=== PATIENT | female | born 1930 | race African-American/Black ===

== ENCOUNTER 2019-05-29 06:30 | Inpatient (IN) | payer MEDICARE, OTHER ==
[2019-05-29] MEDS ORDERED: Ondansetron PF 4 MG/2 ML Vial ONE (07:17)
[2019-05-29 07:55] LABS: ALT (SGPT) 10 U/L (8-55); AST (SGOT) 17 U/L (5-34); Albumin 3.4 g/dL (3.4-4.8); Alkaline Phosphatase 143 U/L (40-110); Anion Gap 16 mmol/L (10-20); BUN (Urea Nitrogen) 19 mg/dL (9.8-20.1); Bilirubin, Total 0.7 mg/dL (0.2-1.2); CK (CPK) 42 U/L (29-168); Calc. Creatinine Clearance 0 mL/min (70-130); Calcium 8.7 mg/dL (7.8-10.44); Carbon Dioxide 19 mmol/L (23-31); Chloride 107 mmol/L (98-107); Estimated GFR-MDRD 59; Globulin 3.5 g/dL (2.4-3.5); Glucose 151 mg/dL (83-110); Lipase 6 U/L (8-78); Potassium 4.4 mmol/L (3.5-5.1); Protein, Total 6.9 g/dL (6.0-8.3); Sodium 138 mmol/L (136-145)
--- NOTE | 2019-05-29 07:56 | RAD ---
EXAM: Single view of the chest HISTORY: Fever COMPARISON: 04/06/2019 FINDINGS: Single view of the chest shows a normal sized cardiomediastinal silhouette. Calcified granu cruz projects over the right lung. Increased interstitial markings are present. The bones are unremarkable. IMPRESSION: No evidence of acute cardiopulmonary disease
[2019-05-29 08:08] LABS: Bilirubin Negative (Negative); Blood, Urine Moderate (Negative); Glucose, Urine (Dipstick) Negative (Negative); Leukocyte Large (Negative); Nitrite Positive (Negative); Protein, Urine (Dipstick) 100 mg/dL (Neg-Trace)
[2019-05-29 08:10] LABS: Clarity Turbid (Clear)
[2019-05-29 08:20] LABS: Band 19 % (5-11); Hemoglobin 12.7 g/dL (12.0-16.0); Lymphocytes 2 % (21-51); MDiff Complete? YES; Mean Corpuscular HGB CONC 32.2 g/dL (32.0-36.0); Mean Corpuscular Hemoglobin 27.1 pg (27.0-31.0); Mean Corpuscular Volume 84.1 fL (78.0-98.0); Mean Platelet Volume 11.6 fL (7.4-10.4); Monocytes 2 % (0-10); Neutrophil 77 % (42-75); Platelet Count 172 thou/uL (130-400); RBC Distribution Width 15.6 % (11.5-14.5); Red Blood Cell (RBC) Count 4.69 mill/uL (4.20-5.40); White Blood Cell (WBC) Count 17.9 thou/uL (4.8-10.8)
[2019-05-29 08:21] LABS: Bacteria/HPF 2+ HPF (None Seen); Squamous Epithelial 0-3 HPF (0-3); WBC/HPF Greater Than 50 HPF (0-3)
--- NOTE | 2019-05-29 08:23 | CT ---
CT Abdomen Pelvis W Con: 05/29/2019 7:04 AM CLINICAL INFORMATION: Back and abdominal pain; bloating COMPARISON: None. TECHNIQUE: Multiple contiguous axial images were obtained and a CT of the abdomen and pelvis with IV contrast. C oronal and sagittal reformats were performed. FINDINGS: Lower Chest: within normal limits. Abdomen: Liver: within normal limits. Bile Ducts: Normal caliber. Gallbladder: No calcified gallstones. Normal caliber wall. Pancreas: within normal limits. Spleen: within normal limits. Adrenals: within normal limits. Kidneys: within normal limits. Pelvis: Reproductive Organs: Status post hysterectomy. Ureters: within normal limits. Bladder: within normal limits. Peritoneum: No ascites or free air, no fluid collection. Bowel: Normal caliber. Scattered diverticula in the colon. Mesentery and Retroperitoneum: No enlarged mesenteric or retroperitoneal lymph nodes. Vessels: Atherosclerotic calcifications. Abdominal Wall: within normal limits. Bones: Degenerative changes in the spine. IMPRESSION: 1. No evidence of acute intraabdominal or pelvic abnormality. 2. Diverticulosis
[2019-05-29] MEDS ORDERED: Mag-Al 1200 mg/1200 mg/30 ML UDCUP ONE (08:30)
[2019-05-29] MEDS ORDERED: Lidocaine Viscous Sol 2% 15 ml UD Cup ONE (08:30)
[2019-05-29] MEDS ORDERED: cefTRIAXone\\ROCEPHIN 2 GM VIAL ONE (08:54)
--- NOTE | 2019-05-29 10:13 | HP ---
PRIMARY CARE PHYSICIAN: Dr. Segun Kline. REASON FOR ADMISSION: Sepsis, UTI. HISTORY OF PRESENT ILLNESS: An 89-year-old female with past medical history of hypertension, peripheral vascular disease, and gastroesophageal reflux disease, who was brought to emergency room by family member because the patient was having back pain and lower abdominal pain along with nausea and vomiting. The patient was also having poor appetite for a couple of days and the patient was becoming more and more weak. When the patient was not able to ambulate even with a walker and her leg was giving out, at that point the patient's family member decided to call paramedics and brought her to emergency room. Yesterday, family member insisted on her to go to ER, but the patient refusing. The patient also had episode of vomiting yesterday, which was containing food particle without any blood. The patient does not have any diarrhea or constipation, but the patient was going for urination frequently. The patient was also warm at home, but family member did not measure temperature. When she was brought to ER, the patient was found with temperature 102.3. The patient was also disoriented at home. The patient did not have any fall or loss of consciousness. The patient did not have any focal motor deficit. Routine blood test showed bandemia and her urinalysis were consistent with UTI. The patient was meeting sepsis criteria. The patient received IV fluid appropriately and received broad-spectrum antibiotic therapy and we decided to keep this patient in the hospital for further evaluation. PAST MEDICAL HISTORY: Hypertension, gastroesophageal reflux disease, and peripheral vascular disease. PAST SURGICAL HISTORY: Hysterectomy, surgery for ectopic , and stent placement in the lower extremity. PAST PSYCHIATRIC HISTORY: Reviewed and negative. ALLERGIES: NO KNOWN DRUG ALLERGIES. CURRENT HOME MEDICATIONS: 1. Aspirin 81 mg daily. 2. Verapamil extended release 180 mg. 3. Diflucan 100 mg daily. FAMILY HISTORY: No strong family history of premature coronary artery disease, stroke, or cancer. SOCIAL HISTORY: The patient has history of smoking about half pack per day. No history of alcohol abuse. No history of illicit drug abuse. Currently lives with her daughter. REVIEW OF SYSTEMS: CONSTITUTIONAL: Negative for weight loss or gain, ability to conduct usual activities. SKIN: Negative for rash, itching. EYES: Negative for double vision, pain. ENT/MOUTH: Negative for nose bleeding, neck stiffness, pain, tenderness. CARDIOVASCULAR: Negative for palpitations, dyspnea on exertion, orthopnea. RESPIRATORY: Negative for shortness of breath, wheezing, cough, hemoptysis, fever or night sweats. GASTROINTESTINAL: Negative for poor appetite, abdominal pain, heartburn, nausea, vomiting, constipation, or diarrhea. GENITOURINARY: Negative for urgency, frequency, dysuria, nocturia. MUSCULOSKELETAL: Negative for pain, swelling. NEUROLOGIC/PSYCHIATRIC: Negative for anxiety, depression. ALLERGY/IMMUNOLOGIC: Negative for skin rash, bleeding tendency. Please see my HPI for pertinent positives and negatives. All other review of systems reviewed and negative except as mentioned in the HPI. EMERGENCY ROOM COURSE: The patient has received Rocephin, Levaquin, IV fluid, GI cocktail, and Zofran. PHYSICAL EXAMINATION: VITAL SIGNS: On arrival, blood pressure 148/61, pulse 90, respiratory rate 18, temperature 102.3, and saturation 97% on room air. Weight 79 kg. GENERAL: The patient is currently alert, awake, appears generalized weak. HEENT: Head; normocephalic, atraumatic. Eyes; pupils are round and reactive to light. Extraocular muscle intact. ENT; oropharynx within normal limits. Dry mucous membranes. No oral lesion. No pharyngeal erythema. No exudate. NECK: Supple. No JVD. No meningeal signs of irritation. LUNGS: Clear to auscultation without any rhonchi or rales. CARDIAC: S1 and S2 regular. No murmur elicited. No gallop. No rub. ABDOMEN: Soft. Bowel sounds present. Lower abdominal discomfort noted. No peritoneal sign. No guarding. No rigidity. No rebound. BACK: Unremarkable. EXTREMITIES: Upper extremities; passive movement of all joints are normal. Lower extremities; no edema. Good distal pulsation. SKIN: No skin rash. HEMATOLOGICAL SYSTEM: No lymphadenopathy. NEUROLOGIC: Nonfocal examination. SIGNIFICANT LABORATORY DATA: EKG based on my review, normal sinus rhythm, within normal limits. Chest x-ray based on my review, no acute cardiopulmonary process. CT abdomen and pelvis showed no acute abdominal process, diverticulosis. CBC; WBC 17.9, hemoglobin 12.7, and platelet 172 with bandemia. BMP; sodium 138, potassium 4.4, chloride 107, carbon dioxide 19, BUN 19, creatinine 1.06, glucose 151, and calcium 8.7. Lactic acid 1.8. LFT; AST 17, ALT 10, alkaline phosphatase 143, albumin 3.4, lipase 66. Troponin 0.024. BNP 80.9. Urinalysis; nitrite positive, blood moderate, and leukocyte esterase large. ASSESSMENT AND PLAN: 1. Sepsis due to urinary tract infection. The patient has leukocytosis with bandemia, high-grade fever. Source of infection is urinary tract. At this point, chest x-ray and CT abdomen and pelvis unremarkable. The patient already received Rocephin and Levaquin in the emergency room, which we will continue while in hospital. We will continue the IV fluid. Follow up on culture result. 2. Urinary tract infection, as mentioned in problem #1. Continue Rocephin, Levaquin, and IV fluid and follow up on culture result and change antibiotic accordingly. 3. Hypertension. We will continue the patient's home medication, verapamil ER after confirmation of dose and the blood pressure permits. 4. Gastroesophageal reflux disease. We will continue Pepcid 20 mg p.o. b.i.d. 5. Deep venous thrombosis prophylaxis, Lovenox 40 mg subcu daily. Gastrointestinal prophylaxis, Pepcid 20 mg p.o. b.i.d. 6. Code status: The patient is full code. The patient's daughter is surrogate decision maker. 7. Disposition plan: Based on clinical course, the patient will need PT and OT evaluation while in hospital and we are expecting her stay in hospital more than 2 midnights. Plan of care extensively discussed with the family member at bedside in the emergency room. Job ID: [id number]
[2019-05-29] MEDS ORDERED: Iopamidol-370 76% 500 ML 1 ML ONE (12:16)
[2019-05-29] MEDS ORDERED: hydrALAZINE 20 MG/ML VIAL SLOW IVP PRN (12:54)
[2019-05-29] MEDS ORDERED: Loratadine 10 MG TAB PO PRN (12:54)
[2019-05-29] MEDS ORDERED: Ondansetron ODT 4 MG TAB PO PRN (12:54)
[2019-05-29] MEDS ORDERED: Bisacodyl 10 MG SUPP PR PRN (12:54)
[2019-05-29] MEDS ORDERED: Loperamide HCl 2 MG CAP PO PRN (12:54)
[2019-05-29] MEDS ORDERED: Diabetic Tussin 200 MG/10 ML UDCUP PO PRN (12:54)
[2019-05-29] MEDS ORDERED: Zolpidem Tartrate 5 MG TAB PO PRN (12:54)
[2019-05-29] MEDS ORDERED: Senokot S 8.6-50 MG TAB PO PRN (12:54)
[2019-05-29] MEDS ORDERED: Calcium Carbonate 500 MG ChewTAB PO PRN (12:54)
[2019-05-29] MEDS ORDERED: Cepastat Lozenges 1 LOZ PO PRN (12:54)
[2019-05-29] MEDS ORDERED: Ondansetron PF 4 MG/2 ML Vial IVP PRN (12:54)
[2019-05-29] MEDS ORDERED: Artificial Tears 18 DROP/0.9 ML EA EYE PRN (12:54)
[2019-05-29] MEDS ORDERED: Sodium Chloride 0.65% Nasal 44 ML BOT EA NARE PRN (12:54)
[2019-05-29] MEDS: Sodium Chloride 0.9% 1,000 ML IV SCH (13:22)
[2019-05-29 16:58] VITALS: BMI 30.2
[2019-05-29] MEDS: Famotidine 20 MG TAB PO SCH (20:54)
[2019-05-29] MEDS ORDERED: FLU VACC TS2019-20(65YR UP)/PF 180 MCG/0.5 ML SYRINGE IM ONE (21:00)
[2019-05-30] MEDS: Acetaminophen 325 MG TAB PO PRN ×4 (00:09→23:58)
[2019-05-30] MEDS: Sodium Chloride 0.9% 1,000 ML IV SCH ×2 (00:11→08:44)
[2019-05-30 05:34] LABS: #Lymphocytes 2.1 thou/uL (1.20-3.40); #Monocytes 1.9 thou/uL (0.11-0.59); #Neutrophils 15.6 thou/uL (1.40-6.50); %Basophils 0.1 % (0.0-1.0); %Eosinophils 0.2 % (0.0-10.0); %Lymphocytes 10.8 % (21.0-51.0); %Monocytes 9.6 % (0.0-10.0); %Neutrophils 79.3 % (42.0-75.0); Hemoglobin 10.8 g/dL (12.0-16.0); Mean Corpuscular HGB CONC 31.3 g/dL (32.0-36.0); Mean Corpuscular Hemoglobin 27.1 pg (27.0-31.0); Mean Corpuscular Volume 86.6 fL (78.0-98.0); Mean Platelet Volume 11.1 fL (7.4-10.4); Platelet Count 143 thou/uL (130-400); RBC Distribution Width 15.4 % (11.5-14.5); Red Blood Cell (RBC) Count 3.96 mill/uL (4.20-5.40); White Blood Cell (WBC) Count 19.6 thou/uL (4.8-10.8)
[2019-05-30 05:45] LABS: Anion Gap 10 mmol/L (10-20); BUN (Urea Nitrogen) 15 mg/dL (9.8-20.1); Calc. Creatinine Clearance 53 mL/min (70-130); Calcium 7.7 mg/dL (7.8-10.44); Carbon Dioxide 21 mmol/L (23-31); Chloride 110 mmol/L (98-107); Estimated GFR-MDRD 74; Glucose 101 mg/dL (83-110); Potassium 4.3 mmol/L (3.5-5.1); Sodium 137 mmol/L (136-145)
[2019-05-30] MEDS: Saccharomyces boulardii 250 MG CAP PO SCH (08:42)
[2019-05-30] MEDS: Enoxaparin Sodium 40 MG/0.4 ML SYRINGE SC SCH (08:42)
[2019-05-30] MEDS: Famotidine 20 MG TAB PO SCH (08:42)
[2019-05-30] MEDS: Aspirin Chewable 81 MG TAB PO SCH (08:42)
[2019-05-30] MEDS ORDERED: cefTRIAXone\\ROCEPHIN 1 GM in Sodium Chloride 0.9% 100 ML IVPB SCH (09:00)
--- NOTE | 2019-05-30 10:37 | PDOC.HOSPP ---
- Subjective Encounter Date: 05/30/19 Encounter Time: 09:10 Subjective: Patient seen and examined. No new complaints. No overnight events - Objective Vital Signs & Weight: Vital Signs (12 hours) Temp Pulse Resp BP Pulse Ox 05/30/19 04:18 98.4 F 97 16 135/73 97 05/30/19 02:57 97 05/29/19 23:54 101.3 F H 82 16 143/76 H 97 Weight Weight 165 lb 5.547 oz I&O: 05/29/19 05/30/19 05/31/19 06:59 06:59 06:59 Intake Total 2880 Output Total 200 Balance 2680 Result Diagrams: 05/30/19 04:54 05/30/19 04:54 Hospitalist ROS - Review of Systems Constitutional: reports: weakness, malaise. denies: fever, chills, sweats, other ENT: denies: ear pain, ear discharge, nose pain, nose discharge, nose congestion , mouth pain, mouth swelling, throat pain, throat swelling, other Respiratory: denies: cough, dry, shortness of breath, hemoptysis, SOB with excertion, pleuritic pain, sputum, wheezing, other Cardiovascular: denies: chest pain, palpitations, orthopnea, paroxysmal noc. dyspnea, edema, light headedness, other Gastrointestinal: denies: nausea, vomiting, abdominal pain, diarrhea, constipation, melena, hematochezia, other Genitourinary: denies: dysuria, frequency, incontinence, hematuria, retention, other Musculoskeletal: denies: neck pain, shoulder pain, arm pain, back pain, hand pain, leg pain, foot pain, other - Medication Medications: Active Medications Generic Name Dose Route Start Last Admin Trade Name Freq PRN Reason Stop Dose Admin Acetaminophen 650 mg 05/29/19 12:54 05/30/19 08:50 Tylenol PO 650 mg Q4H PRN Administration Headache/Fever/Mild Pain (1-3) Aspirin 81 mg 05/30/19 09:00 05/30/19 08:42 Aspirin Chewable PO 81 mg DAILY TIANA Administration Enoxaparin Sodium 40 mg 05/30/19 09:00 05/30/19 08:42 Lovenox SC 40 mg 0900 TIANA Administration Ceftriaxone Sodium 1 gm/ 100 mls @ 200 mls/hr 05/30/19 09:00 05/30/19 08:43 Sodium Chloride IVPB 100 mls Q24HR TIANA Administration Levofloxacin 750 mg/ Device 150 mls @ 100 mls/hr 05/30/19 10:00 05/30/19 09: 43 IVPB 150 mls Q24HR TIANA Administration Sodium Chloride 1,000 mls @ 100 mls/hr 05/29/19 12:54 05/30/19 08:44 Normal Saline 0.9% IV Not Given .Q10H TIANA Saccharomyces Boulardii 250 mg 05/30/19 09:00 05/30/19 08:42 Florastor PO 250 mg DAILY TIANA Administration Sodium Chloride 10 ml 05/30/19 09:00 05/30/19 08:43 Flush - Normal Saline IVF Not Given Q12HR TIANA Verapamil HCl 180 mg 05/30/19 09:00 05/30/19 09:43 Calan Er PO 180 mg DAILY TIANA Administration - Exam General Appearance: NAD, awake alert Eye: PERRL, anicteric sclera ENT: normocephalic atraumatic, no oropharyngeal lesions Neck: supple, symmetric, no JVD, no thyromegaly Heart: RRR, no murmur, no gallops, no rubs Respiratory: CTAB, no wheezes, no rales, no ronchi Gastrointestinal: soft, non-tender, non-distended, normal bowel sounds Extremities: no cyanosis, no clubbing Skin: normal turgor, no lesions Neurological: no focal deficits Musculoskeletal: normal tone, normal strength Psychiatric: normal affect, normal behavior Hosp A/P (1) Sepsis Code(s): A41.9 - SEPSIS, UNSPECIFIED ORGANISM Status: Acute Qualifiers: Sepsis type: Escherichia coli Sepsis acute organ dysfunction status: with acute organ dysfunction Severe sepsis acute organ dysfunction type: encephalopathy Severe sepsis shock status: without septic shock Qualified Code(s): A41.51 - Sepsis due to Escherichia coli [E. coli]; R65.20 - Severe sepsis without septic shock; G93.41 - Metabolic encephalopathy (2) Acute encephalopathy Code(s): G93.40 - ENCEPHALOPATHY, UNSPECIFIED Status: Acute (3) Bacteremia due to Escherichia coli Code(s): R78.81 - BACTEREMIA Status: Acute (4) Obesity (BMI 30.0-34.9) Code(s): E66.9 - OBESITY, UNSPECIFIED Status: Chronic (5) GERD (gastroesophageal reflux disease) Code(s): K21.9 - GASTRO-ESOPHAGEAL REFLUX DISEASE WITHOUT ESOPHAGITIS Status: Chronic Qualifiers: Esophagitis presence: without esophagitis Qualified Code(s): K21.9 - Gastro -esophageal reflux disease without esophagitis (6) Hypertension Code(s): I10 - ESSENTIAL (PRIMARY) HYPERTENSION Status: Chronic Qualifiers: Hypertension type: essential hypertension Qualified Code(s): I10 - Essential (primary) hypertension - Plan old records reviewed/req, continue antibiotics, PT/OT, social sciences professor, DVT proph w/lovenox 05/30/19 continue IVF for 1 liter continue antibiotics follow on culture result medication reviewed as above and continue to provide supportive care
[2019-05-31 05:53] LABS: Anion Gap 10 mmol/L (10-20); BUN (Urea Nitrogen) 14 mg/dL (9.8-20.1); Calc. Creatinine Clearance 55 mL/min (70-130); Carbon Dioxide 20 mmol/L (23-31); Chloride 110 mmol/L (98-107); Estimated GFR-MDRD 76; Glucose 84 mg/dL (83-110); Potassium 4.2 mmol/L (3.5-5.1); Sodium 136 mmol/L (136-145)
[2019-05-31 07:01] LABS: Band 16 % (5-11); Hemoglobin 10.5 g/dL (12.0-16.0); Lymphocytes 16 % (21-51); MDiff Complete? YES; Mean Corpuscular HGB CONC 31.2 g/dL (32.0-36.0); Mean Corpuscular Hemoglobin 26.6 pg (27.0-31.0); Mean Corpuscular Volume 85.4 fL (78.0-98.0); Mean Platelet Volume 11.2 fL (7.4-10.4); Monocytes 1 % (0-10); Neutrophil 67 % (42-75); Platelet Count 150 thou/uL (130-400); RBC Distribution Width 15.4 % (11.5-14.5); Red Blood Cell (RBC) Count 3.94 mill/uL (4.20-5.40); White Blood Cell (WBC) Count 13.5 thou/uL (4.8-10.8)
[2019-05-31] MEDS: Aspirin Chewable 81 MG TAB PO SCH (09:37)
[2019-05-31] MEDS: Saccharomyces boulardii 250 MG CAP PO SCH (09:37)
[2019-05-31] MEDS: Enoxaparin Sodium 40 MG/0.4 ML SYRINGE SC SCH (09:37)
[2019-05-31] MEDS: Famotidine 20 MG TAB PO SCH (09:38)
--- NOTE | 2019-05-31 10:45 | PDOC.HOSPP ---
- Subjective Encounter Date: 05/31/19 Encounter Time: 09:15 Subjective: Patient seen and examined. No new complaints. No overnight events - Objective Vital Signs & Weight: Vital Signs (12 hours) Temp Pulse Resp BP Pulse Ox 05/31/19 08:00 100.1 F H 76 24 H 171/81 H 95 05/31/19 03:37 99.6 F 72 16 176/77 H 97 05/31/19 00:40 99 F 05/31/19 00:00 172/71 H 05/30/19 23:33 100.8 F H 77 16 180/71 H 92 L Weight Weight 165 lb 5.547 oz I&O: 05/30/19 05/31/19 06/01/19 06:59 06:59 06:59 Intake Total 2880 1400 Output Total 200 200 Balance 2680 1200 Result Diagrams: 05/31/19 05:10 05/31/19 05:10 Hospitalist ROS - Review of Systems ENT: denies: ear pain, ear discharge, nose pain, nose discharge, nose congestion , mouth pain, mouth swelling, throat pain, throat swelling, other Respiratory: denies: cough, dry, shortness of breath, hemoptysis, SOB with excertion, pleuritic pain, sputum, wheezing, other Cardiovascular: denies: chest pain, palpitations, orthopnea, paroxysmal noc. dyspnea, edema, light headedness, other Gastrointestinal: denies: nausea, vomiting, abdominal pain, diarrhea, constipation, melena, hematochezia, other Genitourinary: denies: dysuria, frequency, incontinence, hematuria, retention, other Musculoskeletal: denies: neck pain, shoulder pain, arm pain, back pain, hand pain, leg pain, foot pain, other - Medication Medications: Active Medications Generic Name Dose Route Start Last Admin Trade Name Freq PRN Reason Stop Dose Admin Acetaminophen 650 mg 05/29/19 12:54 05/30/19 23:58 Tylenol PO 650 mg Q4H PRN Administration Headache/Fever/Mild Pain (1-3) Aspirin 81 mg 05/30/19 09:00 05/31/19 09:37 Aspirin Chewable PO 81 mg DAILY TIANA Administration Enoxaparin Sodium 40 mg 05/30/19 09:00 05/31/19 09:37 Lovenox SC 40 mg 09 TIANA Administration Famotidine 20 mg 05/31/19 09:00 05/31/19 09:38 Pepcid PO 20 mg DAILY TIANA Administration Ciprofloxacin/Dextrose 400 mg/ 200 mls @ 200 mls/hr 05/31/19 09:00 05/31/19 09:35 Device IVPB 200 mls Q12HR TIANA Administration Saccharomyces Boulardii 250 mg 05/30/19 09:00 05/31/19 09:37 Florastor PO 250 mg DAILY TIANA Administration Sodium Chloride 10 ml 05/30/19 09:00 05/31/19 05:27 Flush - Normal Saline IVF Not Given Q12HR TIANA Verapamil HCl 180 mg 05/30/19 09:00 05/31/19 09:42 Calan Er PO 180 mg DAILY TIANA Administration - Exam General Appearance: NAD, awake alert Eye: PERRL, anicteric sclera ENT: normocephalic atraumatic, no oropharyngeal lesions Neck: supple, symmetric, no JVD Heart: RRR, no murmur, no gallops, no rubs Respiratory: CTAB, no wheezes, no rales, no ronchi Gastrointestinal: soft, non-tender, non-distended, normal bowel sounds Extremities: no cyanosis, no clubbing, no edema Skin: normal turgor, no lesions Neurological: no focal deficits Musculoskeletal: normal tone, normal strength Psychiatric: normal affect, normal behavior Hosp A/P (1) Sepsis Code(s): A41.9 - SEPSIS, UNSPECIFIED ORGANISM Status: Acute Qualifiers: Sepsis type: Escherichia coli Sepsis acute organ dysfunction status: with acute organ dysfunction Severe sepsis acute organ dysfunction type: encephalopathy Severe sepsis shock status: without septic shock Qualified Code(s): A41.51 - Sepsis due to Escherichia coli [E. coli]; R65.20 - Severe sepsis without septic shock; G93.41 - Metabolic encephalopathy (2) Acute encephalopathy Code(s): G93.40 - ENCEPHALOPATHY, UNSPECIFIED Status: Acute (3) Bacteremia due to Escherichia coli Code(s): R78.81 - BACTEREMIA Status: Acute (4) Obesity (BMI 30.0-34.9) Code(s): E66.9 - OBESITY, UNSPECIFIED Status: Chronic (5) GERD (gastroesophageal reflux disease) Code(s): K21.9 - GASTRO-ESOPHAGEAL REFLUX DISEASE WITHOUT ESOPHAGITIS Status: Chronic Qualifiers: Esophagitis presence: without esophagitis Qualified Code(s): K21.9 - Gastro -esophageal reflux disease without esophagitis (6) Hypertension Code(s): I10 - ESSENTIAL (PRIMARY) HYPERTENSION Status: Chronic Qualifiers: Hypertension type: essential hypertension Qualified Code(s): I10 - Essential (primary) hypertension - Plan old records reviewed/req, continue antibiotics, PT/OT, medical social worker 05/30/19 continue IVF for 1 liter continue antibiotics follow on culture result medication reviewed as above and continue to provide supportive care 05/31/19 change antibiotic to cipro IV today based on culture result medication reviewed as above and symptomatic treatment discharge planning, expecting discharge 24-48 hours
[2019-05-31] MEDS ORDERED: Losartan 25 MG TAB PO SCH (11:45)
[2019-06-01] MEDS: Acetaminophen 325 MG TAB PO PRN (00:03)
[2019-06-01 06:24] LABS: Band 4 % (5-11); Hemoglobin 10.9 g/dL (12.0-16.0); Lymphocytes 33 % (21-51); MDiff Complete? YES; Mean Corpuscular HGB CONC 31.6 g/dL (32.0-36.0); Mean Corpuscular Hemoglobin 26.4 pg (27.0-31.0); Mean Corpuscular Volume 83.5 fL (78.0-98.0); Mean Platelet Volume 11.1 fL (7.4-10.4); Monocytes 7 % (0-10); Neutrophil 56 % (42-75); Platelet Count 166 thou/uL (130-400); RBC Distribution Width 15.3 % (11.5-14.5); Red Blood Cell (RBC) Count 4.12 mill/uL (4.20-5.40); White Blood Cell (WBC) Count 9.8 thou/uL (4.8-10.8)
[2019-06-01] MEDS ORDERED: Carvedilol 6.25 MG TAB PO SCH (08:00)
[2019-06-01] MEDS: Aspirin Chewable 81 MG TAB PO SCH (08:56)
[2019-06-01] MEDS: Saccharomyces boulardii 250 MG CAP PO SCH (08:56)
[2019-06-01] MEDS: Enoxaparin Sodium 40 MG/0.4 ML SYRINGE SC SCH (08:56)
[2019-06-01] MEDS: Famotidine 20 MG TAB PO SCH (08:56)
[2019-06-01] MEDS ORDERED: Losartan 25 MG TAB PO SCH ×2 (09:00)
[2019-06-01] MEDS ORDERED: Amlodipine 5 MG TAB PO SCH (09:00)
[2019-06-01] MEDS ORDERED: hydrALAZINE 25 MG TAB PO SCH ×2 (10:30→15:00)
--- NOTE | 2019-06-01 10:33 | PDOC.HOSPP ---
- Subjective Encounter Date: 06/01/19 Encounter Time: 08:40 Subjective: Patient seen and examined. No new complaints. No overnight events - Objective Vital Signs & Weight: Vital Signs (12 hours) Temp Pulse Resp BP BP Pulse Ox 06/01/19 08:55 195/71 H 06/01/19 07:40 99.5 F 68 18 195/71 H 94 L 06/01/19 03:52 98.8 F 68 16 168/81 H 93 L 06/01/19 00:21 77 184/77 H 06/01/19 00:00 100.1 F H 77 18 184/77 H 95 Weight Weight 165 lb 5.547 oz I&O: 05/31/19 06/01/19 06/02/19 06:59 06:59 06:59 Intake Total 1400 240 Output Total 200 Balance 1200 240 Result Diagrams: 06/01/19 05:34 05/31/19 05:10 Hospitalist ROS - Review of Systems Respiratory: denies: cough, dry, shortness of breath, hemoptysis, SOB with excertion, pleuritic pain, sputum, wheezing, other Cardiovascular: denies: chest pain, palpitations, orthopnea, paroxysmal noc. dyspnea, edema, light headedness, other Gastrointestinal: denies: nausea, vomiting, abdominal pain, diarrhea, constipation, melena, hematochezia, other Genitourinary: denies: dysuria, frequency, incontinence, hematuria, retention, other Musculoskeletal: denies: neck pain, shoulder pain, arm pain, back pain, hand pain, leg pain, foot pain, other - Medication Medications: Active Medications Generic Name Dose Route Start Last Admin Trade Name Luisq PRN Reason Stop Dose Admin Acetaminophen 650 mg 05/29/19 12:54 06/01/19 00:03 Tylenol PO 650 mg Q4H PRN Administration Headache/Fever/Mild Pain (1-3) Aspirin 81 mg 05/30/19 09:00 06/01/19 08:56 Aspirin Chewable PO 81 mg DAILY TIANA Administration Carvedilol 6.25 mg 06/01/19 08:00 06/01/19 08:55 Coreg PO 6.25 mg BID-WM TIANA Administration Enoxaparin Sodium 40 mg 05/30/19 09:00 06/01/19 08:56 Lovenox SC 40 mg 0900 TIANA Administration Famotidine 20 mg 05/31/19 09:00 06/01/19 08:56 Pepcid PO 20 mg DAILY TIANA Administration Hydralazine HCl 10 mg 05/29/19 12:54 06/01/19 00:21 Apresoline SLOW IVP 10 mg Q4H PRN Administration SBP > 180 and HR < 70 Ciprofloxacin/Dextrose 400 mg/ 200 mls @ 200 mls/hr 05/31/19 09:00 06/01/19 08:56 Device IVPB 200 mls Q12HR TIANA Administration Losartan Potassium 100 mg 06/01/19 09:00 06/01/19 08:55 Cozaar PO 100 mg DAILY TIANA Administration Saccharomyces Boulardii 250 mg 05/30/19 09:00 06/01/19 08:56 Florastor PO 250 mg DAILY TIANA Administration Sodium Chloride 10 ml 05/30/19 09:00 06/01/19 08:57 Flush - Normal Saline IVF 10 ml Q12HR TIANA Administration Verapamil HCl 180 mg 05/30/19 09:00 06/01/19 08:56 Calan Er PO 180 mg DAILY TIANA Administration - Exam General Appearance: NAD, awake alert Eye: PERRL, anicteric sclera ENT: normocephalic atraumatic, no oropharyngeal lesions Neck: supple, symmetric, no JVD Heart: RRR, no murmur, no gallops, no rubs Respiratory: CTAB, no wheezes, no rales, no ronchi Gastrointestinal: soft, non-tender, non-distended, normal bowel sounds Extremities: no clubbing, no edema Skin: normal turgor, no lesions Neurological: no focal deficits Musculoskeletal: normal tone, normal strength Psychiatric: normal affect, normal behavior Hosp A/P (1) Sepsis Code(s): A41.9 - SEPSIS, UNSPECIFIED ORGANISM Status: Acute Qualifiers: Sepsis type: Escherichia coli Sepsis acute organ dysfunction status: with acute organ dysfunction Severe sepsis acute organ dysfunction type: encephalopathy Severe sepsis shock status: without septic shock Qualified Code(s): A41.51 - Sepsis due to Escherichia coli [E. coli]; R65.20 - Severe sepsis without septic shock; G93.41 - Metabolic encephalopathy (2) Acute encephalopathy Code(s): G93.40 - ENCEPHALOPATHY, UNSPECIFIED Status: Acute (3) Bacteremia due to Escherichia coli Code(s): R78.81 - BACTEREMIA Status: Acute (4) Obesity (BMI 30.0-34.9) Code(s): E66.9 - OBESITY, UNSPECIFIED Status: Chronic (5) GERD (gastroesophageal reflux disease) Code(s): K21.9 - GASTRO-ESOPHAGEAL REFLUX DISEASE WITHOUT ESOPHAGITIS Status: Chronic Qualifiers: Esophagitis presence: without esophagitis Qualified Code(s): K21.9 - Gastro -esophageal reflux disease without esophagitis (6) Hypertension Code(s): I10 - ESSENTIAL (PRIMARY) HYPERTENSION Status: Chronic Qualifiers: Hypertension type: essential hypertension Qualified Code(s): I10 - Essential (primary) hypertension - Plan old records reviewed/req, continue antibiotics 05/30/19 continue IVF for 1 liter continue antibiotics follow on culture result medication reviewed as above and continue to provide supportive care 05/31/19 change antibiotic to cipro IV today based on culture result medication reviewed as above and symptomatic treatment discharge planning, expecting discharge 24-48 hours 06/01/19 change losartan 100 mg po daily add coreg 6.25 mg po bid add hydralazine 25 mg po tid possible discharge today if no further discharge needs like snu medication reviewed as above and continue to provide supportive care
--- NOTE | 2019-06-01 12:22 | DIS ---
DATE OF ADMISSION: 05/29/2019 DATE OF DISCHARGE: 06/01/2019 PRIMARY CARE PHYSICIAN: Dr. Ellie Winn. DISCHARGE DISPOSITION: Home with home health. PRIMARY DISCHARGE DIAGNOSES: Sepsis with acute organ dysfunction; acute encephalopathy, resolved; bacteremia due to Escherichia coli; and urinary tract infection. SECONDARY DISCHARGE DIAGNOSES: Obesity with BMI 30, hypertension, and gastroesophageal reflux disease. PRIMARY PROCEDURE/OPERATION: None. RADIOLOGICAL INVESTIGATION: Chest x-ray was normal. CT abdomen and pelvis was unremarkable other than diverticulosis. SIGNIFICANT LABORATORY DATA: WBC 9.8, hemoglobin 10.9, and platelets 166. Sodium 136, potassium 4.2, BUN 14, creatinine 0.86, and calcium 8.0. AST 17, ALT 10, alkaline phosphatase 143, and albumin 3.4. Troponin 0.024. BNP 80.9. Urinalysis suggestive of UTI. Blood culture positive for E coli. Influenza negative. DISCHARGE MEDICATIONS: 1. Aspirin 81 mg p.o. daily. 2. Omeprazole 40 mg p.o. daily. 3. Verapamil ER 180 mg p.o. daily. 4. Cipro 500 mg p.o. twice daily for 15 days. 5. Coreg 6.25 mg p.o. b.i.d. 6. Hydralazine 25 mg p.o. t.i.d. 7. Losartan 100 mg p.o. daily. CONTRAINDICATION: None. CODE STATUS: Full code. INPATIENT FAGOTING MACHINE OPERATOR: None. ALLERGIES: NO KNOWN DRUG ALLERGIES. DISCHARGE PLAN: Posthospital, the patient will follow up with primary care physician in 1 week. HOSPITAL COURSE: An 89-year-old female, who was brought to ER by family member for generalized weakness and lower abdominal pain and nausea and vomiting. The patient was found with urinary tract infection. Please see my HPI for more details. The patient subsequently had positive blood culture as well. While in the hospital, she was treated with Rocephin and Levaquin, and subsequently, based on culture result, we changed to ciprofloxacin only. The patient was having intermittent fever while in the hospital and she clinically improved significantly. The patient's blood pressure was not well controlled and that is why we increased the dose of losartan to 100 mg daily as well as we also added hydralazine and Coreg on her regimen. This patient is doing very well with physical therapy. At this point, we are considering discharge with home health. Plan of care discussed with the family member. The patient is seen and examined at bedside today. Please see my progress note from today for further detail. All new medication prescription sent to her pharmacy. Job ID: [id number]
[2019-06-01 15:50] VITALS: BP 134/76; TEMP 98.9
== END 2019-06-01 16:40 | disposition home health service (06) | DRG 871 ==
LOC: ERS 06:30 → SURG A 11:55
PROVIDERS: ADMIT Internal Medicine; ATTEND Internal Medicine
DX: A41.51 Sepsis due to Escherichia coli [E. coli] (principal); G93.41 Metabolic encephalopathy; N39.0 Urinary tract infection, site not specified; R65.20 Severe sepsis without septic shock; E66.9 Obesity, unspecified; K21.9 Gastro-esophageal reflux disease without esophagitis; I10 Essential (primary) hypertension; F17.210 Nicotine dependence, cigarettes, uncomplicated; I73.9 Peripheral vascular disease, unspecified; Z68.30 Body mass index [BMI] 30.0-30.9, adult
CPT/HCPCS: 36415; 36416; 71045; 74177; 80048; 80053; 81003; 81015; 82550; 83605; 83690; 83880; 84484; 85025; 87040; 87077; 87149; 87186; 87804; 93005; A4353; J0360; J0696; J0744; J1650; J1956; J2405; J3490; Q9967

== ENCOUNTER 2019-07-29 23:22 | Inpatient (IN) | payer MEDICARE, OTHER ==
--- NOTE | 2019-07-29 23:57 | RAD ---
XR Chest 1 View Portable History: Dyspnea Comparison: Radiograph May 29, 2019 Findings: Small effusions. Consolidation right lung base. Heart size is enlarged. Mild background pulmonary edema. Right upper lobe calcified granuloma. Impression: 1. Cardiomegaly and mild pulmonary edema. 2. Dense consolidation right lung base reflect layering effusion, alveolar edema, or pneumonia. Follo w-up recommended.
[2019-07-30 00:02] LABS: Hemoglobin 9.3 g/dL (12.0-16.0); Lymphocytes 45 % (21-51); MDiff Complete? YES; Mean Corpuscular HGB CONC 30.4 g/dL (32.0-36.0); Mean Corpuscular Hemoglobin 25.1 pg (27.0-31.0); Mean Corpuscular Volume 82.7 fL (78.0-98.0); Mean Platelet Volume 10.1 fL (7.4-10.4); Monocytes 13 % (0-10); Neutrophil 42 % (42-75); Platelet Count 277 thou/uL (130-400); Platelet Morphology Comment Appears Adequate; RBC Distribution Width 18.3 % (11.5-14.5); Red Blood Cell (RBC) Count 3.69 mill/uL (4.20-5.40); White Blood Cell (WBC) Count 8.8 thou/uL (4.8-10.8)
[2019-07-30 00:20] LABS: ALT (SGPT) 23 U/L (8-55); AST (SGOT) 28 U/L (5-34); Albumin 3.1 g/dL (3.4-4.8); Alkaline Phosphatase 106 U/L (40-110); Anion Gap 17 mmol/L (10-20); BUN (Urea Nitrogen) 16 mg/dL (9.8-20.1); Bilirubin, Total 0.4 mg/dL (0.2-1.2); Calc. Creatinine Clearance 0 mL/min (70-130); Calcium 7.9 mg/dL (7.8-10.44); Carbon Dioxide 21 mmol/L (23-31); Chloride 110 mmol/L (98-107); Estimated GFR-MDRD 59; Globulin 2.9 g/dL (2.4-3.5); Glucose 119 mg/dL (83-110); Potassium 4.8 mmol/L (3.5-5.1); Sodium 143 mmol/L (136-145)
[2019-07-30] MEDS ORDERED: Acetaminophen 500 MG TAB ONE (00:56)
[2019-07-30] MEDS ORDERED: Cefepime 2 GM VIAL ONE (00:57)
[2019-07-30 01:45] LABS: Bilirubin Negative (Negative); Blood, Urine Negative (Negative); Clarity Clear (Clear); Glucose, Urine (Dipstick) Normal (Negative); Leukocyte Negative Leu/uL (Negative); Nitrite Negative (Negative); Protein, Urine (Dipstick) 10 mg/dL (Neg-Trace); Urobilinogen Normal mg/dL (Less than 2)
[2019-07-30] MEDS ORDERED: Enoxaparin Sodium 100 MG/ML SYRINGE ONE (02:09)
--- NOTE | 2019-07-30 02:57 | PDOC.EVN ---
Event Note - Event Note Event Note: [id number] HP
--- NOTE | 2019-07-30 03:46 | HP ---
CHIEF COMPLAINT: Weakness and shortness of breath. HISTORY OF PRESENT ILLNESS: Ms. Billings is an 89-year-old female with past medical history of congestive heart failure, hypertension, ? COPD, pneumonia, among others, presents to the emergency room with weakness and shortness of breath. The patient was brought to the emergency room by EMS from home after reportedly becoming short of breath and weak during her nebulizer treatments. Per the patient's daughter, she was recently hospitalized for pneumonia and was subsequently transferred to a rehab and then SNF. She has been at home since Friday and doing okay. The patient's family reported swelling of both lower extremities. The patient denies chest pain, abdominal pain, nausea, vomiting, or diarrhea. On workup in the emergency room including CT of the chest, the patient was found to have small pulmonary embolism, bilateral pleural effusions, pulmonary vascular congestion. BNP is elevated at 330. Hemoglobin 9.3. In the emergency room, the patient was given Lovenox. The patient is being admitted to the hospital for further management. PAST MEDICAL HISTORY: 1. Congestive heart failure. 2. Hypertension. 3. ? COPD. 4. Pneumonia. PAST SURGICAL HISTORY: 1. Hysterectomy. 2. Stent placement for poor circulation. SOCIAL HISTORY: Smokes cigarettes, half pack per day. Denies alcohol drinking or drug abuse. FAMILY HISTORY: Reviewed and noncontributory. ALLERGIES: NO KNOWN ALLERGIES. HOME MEDICATIONS: Please see home medication reconciliation form for updated medications. PHYSICAL EXAMINATION: GENERAL: The patient is awake, in moderate respiratory distress. VITAL SIGNS: Blood pressure 156/56, pulse is 75, respiratory rate is 17, temperature 98.9, and oxygen saturation is 93% on 2 L/minute nasal cannula. HEAD AND NECK: Normocephalic and atraumatic. Neck is supple. No JVD. CHEST: Decreased air entry in both bases. HEART: S1 and S2. Regular. ABDOMEN: Obese, soft. Bowel sounds present. NEUROLOGIC: Awake, alert, oriented. Moving extremities. PSYCH: Unable to assess. EXTREMITIES: 2+ pedal edema. GENITOURINARY: No flank tenderness. No suprapubic tenderness. LABORATORY DATA: WBC 8.8, hemoglobin 9.3, platelets 277. BUN is 16, creatinine 1.0. CTA of the chest as mentioned above in history of present illness. ASSESSMENT: 1. Acute pulmonary embolism. 2. Congestive heart failure, exacerbation. 3. Chronic obstructive pulmonary disease? 4. Hypertension. PLAN: 1. Admit. 2. Oxygen to keep saturation more than 92%. 3. Lovenox 1 mg/kg q.12 hours. 4. Venous Doppler of lower extremities. 5. Cautious IV diuresis for CHF? exacerbation. 6. 2D echo. 7. Consider pulmonary consultation in a.m. for evaluation and further recommendations. 8. Reconcile home medications. 9. DVT prophylaxis. The patient is on Lovenox. 10. Expected length of stay, 2 midnights or more. Job ID: [id number]
[2019-07-30 04:53] LABS: Hemoglobin 8.6 g/dL (12.0-16.0); Platelet Count 243 thou/uL (130-400)
[2019-07-30 05:26] VITALS: BMI 33.0
[2019-07-30] MEDS: Furosemide 20 MG/2 ML VIAL SLOW IVP SCH ×2 (06:36→14:42)
[2019-07-30] MEDS ORDERED: Labetalol HCl 100 MG/20 ML VIAL SLOW IVP PRN (07:36)
[2019-07-30] MEDS ORDERED: Melatonin 3 MG TAB PO PRN (07:36)
[2019-07-30] MEDS ORDERED: diphenhydrAMINE 25 MG CAP PO PRN (07:36)
[2019-07-30] MEDS ORDERED: Docusate 100 MG CAP PO PRN (07:36)
[2019-07-30] MEDS ORDERED: Benzonatate 100 MG CAP PO PRN (07:36)
[2019-07-30] MEDS ORDERED: Loperamide HCl 2 MG CAP PO PRN (07:37)
[2019-07-30] MEDS ORDERED: Acetaminophen 325 MG TAB PO PRN (07:37)
[2019-07-30] MEDS ORDERED: Bisacodyl 5 MG TAB PO PRN ×3 (07:37→12:18)
[2019-07-30] MEDS ORDERED: Ondansetron ODT 4 MG TAB PO PRN (07:37)
[2019-07-30] MEDS ORDERED: HYDROcodone/Acetaminophen 5/325 mg Tablet PO PRN (07:37)
[2019-07-30] MEDS ORDERED: Ondansetron PF 4 MG/2 ML Vial IVP PRN (07:37)
--- NOTE | 2019-07-30 08:51 | CT ---
PRELIMINARY REPORT/[facility]/EMERGENCY AFTER HOURS PROCEDURE: Receipt of this report by the clinical staff was confirmed with MIRNA STOKES MD by Delores Kohli on Jul 30, 2019 01:59:00 APPRENTICE COOK. Addendum electronically signed by Mariola Kohli on July 30, 2019 2:00:00 AM APPRENTICE COOK PROCEDURE: CTA Chest with IV Contrast Material . HISTORY: Dyspnea and weakness. TECHNIQUE: Axial images were performed with multiplanar and 3-D (maximum intensity projection and kwabena face-shaded) reconstructions. The patient was given iodinated nonionic IV contrast . COMPARISON: None . FINDINGS: Mild atherosclerosis and tortuosity thoracic aorta with no aneurysm or dissection. Small amount of clot to secondary or tertiary branches RIGHT upper lobe. No other pulmonary embolus identified. Mediastinum and hilar regions show no masses or lymphadenopathy. Normal size heart with no pericardial fluid. Elevated RIGHT/LEFT ventricular diameter ratio 1.1 Small bilateral pleural effusions with compressive atelectasis lung bases. Subcentimeter calcified g ranuloma RIGHT upper lobe. No soft tissue masses or pulmonary consolidation. Visualized upper abdomen shows no abnormality. No acute bony abnormality. IMPRESSION: Small amount of clot to the RIGHT upper lobe consistent with pulmonary embolus. Mildly elevated RIGHT/LEFT ventricular diameter ratio. Bilateral pleural effusions. No pulmonary consolidation. ELECTRONICALLY SIGNED BY: Sage Mendenhall MD Jul 30, 2019 1:58:09 AM APPRENTICE COOK This report is intended for review by the ordering physician only, in accordance of law. If you recei ve this report in error, please call [facility] at [phone]. FINAL REPORT CT ANGIOGRAM OF CHEST: HISTORY: Generalized weakness. Leg swelling. COMPARISON: None. TECHNIQUE: CT angiogram of chest performed in the axial plane. Three-dimensional reformatted images are submitted for interpretation. FINDINGS: No mediastinal mass or hematoma. Enlarged right paratracheal lymph node measures 2.0 x 1.2 cm. There is an AP window lymph node measuring 1.1 x 1.7 cm. Heart size is within normal limits. There is no si gnificant pericardial fluid. Visualized aorta has a normal caliber. No periaortic fat stranding. Visualized upper abdomen is grossly unremarkable. Small bilateral effusions with adjacent atelectasis, aspiration, or pneumonia. No suspicious nodules. Adequate contrast opacification of the pulmonary arterial system to the level of the segmental arteri es. No filling defects to suggest thromboembolism. IMPRESSION: 1. No evidence of pulmonary artery embolism to the level of the segmental arteries. 2. Mildly enlarged, nonspecific right paratracheal lymph node and AP window lymph node as described above. Lymphadenopathy is nonspecific. Lymphadenopathy was not mentioned in the initial report by [facility]. This is in minor disagreement. CODE T. POS: OFF
[2019-07-30] MEDS ORDERED: Losartan 25 MG TAB PO SCH (09:00)
[2019-07-30] MEDS ORDERED: FLU VACC TS2019-20(65YR UP)/PF 180 MCG/0.5 ML SYRINGE IM ONE (09:00)
[2019-07-30] MEDS ORDERED: Famotidine 20 MG TAB PO SCH (09:00)
[2019-07-30] MEDS ORDERED: Enoxaparin Sodium 80 MG/0.8 ML SYRINGE SC SCH (09:00)
[2019-07-30] MEDS ORDERED: Carvedilol 6.25 MG TAB PO SCH (09:00)
[2019-07-30] MEDS ORDERED: Iopamidol-370 76% 500 ML 1 ML ONE (09:08)
[2019-07-30] MEDS: Aspirin Chewable 81 MG TAB PO SCH (09:56)
[2019-07-30] MEDS: hydrALAZINE 25 MG TAB PO SCH ×3 (09:57→22:12)
--- NOTE | 2019-07-30 11:43 | ULT ---
BILATERAL LOWER EXTREMITY VENOUS ULTRASOUND WITH DOPPLER: Date: 07/30/2019 HISTORY: Patient has pulmonary artery emboli. Evaluate for thrombus. Edema. COMPARISON: None. TECHNIQUE: Velázquez scale, color flow, Doppler imaging, and spectral waveform analysis performed of the left and rig ht lower extremity deep venous system. FINDINGS: Bilaterally, there is compressibility, presence of flow, and augmentation in the common femoral, femo ral vein, and popliteal vein. There is flow in bilateral greater saphenous veins, profunda femoral ve ins, and posterior tibial veins. IMPRESSION: No evidence of thrombus in the left or right lower extremity deep venous system. POS: OFF
--- NOTE | 2019-07-30 11:44 | CON ---
DATE OF CONSULTATION: HISTORY OF PRESENT ILLNESS: An 89-year-old morbidly obese female, who weighs 89 kg, presented to the ER with not feeling good and weakness. No specific complaints. Saturations are 95% on 2 L, pulse 84, respirations 16, and temperature is 99.2. There is a daughter who gives additional information, states that she was recently hospitalized in [place] with a diagnosis of COPD, CHF. She was in the long-term unit and was discharged home Friday, doing well, noted lower extremity swelling. No pain. No congestion. No wheezing. Though this morning, she says she is just feeling bad all over. Former smoker, apparently quit smoking recently. She has limitation to her activities. She has smoked up to half pack a day. PAST MEDICAL HISTORY: Pertinent for poor circulation. She had a recent diagnosis of COPD, discharged from this hospital in May, went to [place], went back to a hospital in [place], had diagnoses of encephalopathy, E coli UTI and sepsis. PAST SURGERY: Hysterectomy, lower extremity stent placed in, ectopic . HOME MEDICINE: 1. Hydralazine 25 three times a day. 2. Verapamil 80. 3. Prilosec 40. 4. Cozaar 100. 5. Cipro was given in [employer]. 6. Coreg 6.25. 7. Aspirin. ALLERGIES: NONE. REVIEW OF SYSTEMS: Otherwise, unremarkable. PHYSICAL EXAMINATION: GENERAL: She is awake, alert, responsive, temperature 98, pulse 80, blood pressure 130/61, saturation 100% on room air. CHEST: Decreased breath sounds. No wheezing. CARDIAC: Normal S1, S2. No gallops. ABDOMEN: No masses. LABORATORY DATA: White count 8000, hemoglobin 9 and hematocrit 30, platelet count 217. Lytes are normal. BNP 330. IMAGING: Chest x-ray shows cardiomegaly and bilateral pleural effusion. CT chest read by a local radiologist showed bilateral pleural effusion, granuloma, was read as no evidence of pulmonary emboli by Dr. Clarice Suarez. IMPRESSION: Severe deconditioning, morbid obesity, probably sleep apnea, chronic obstructive pulmonary disease, tobacco abuse, congestive heart failure. No evidence of PE. Repeat report as noted by Dr. Suarez. Await results of the ultrasound. If this is negative, discontinue full-dose Lovenox, put on DVT prophylaxis. Otherwise, consider getting an echocardiogram. Consider cardiac input. Pulmonary hale, when she is stable, she needs outpatient sleep study and thus I will continue neb treatment. We will follow and discuss. Consultation note, 70 minutes, 50% direct patient care. Job ID: [id number]
[2019-07-30] MEDS ORDERED: traMADol HCl 50 MG TAB PO PRN ×2 (11:59→12:21)
[2019-07-30] MEDS ORDERED: Carbamide Peroxide 6.5% Otic Drops 15 ml Bottle EA EAR PRN (11:59)
[2019-07-30] MEDS ORDERED: Milk Of Magnesia 30 ML UDCUP PO PRN (11:59)
--- NOTE | 2019-07-30 12:06 | PDOC.EVN ---
Event Note - Event Note Event Note: Seen and examined. Breathing comfortably on room air. Home meds restarted. CTA initially positive, upon re interpretation there is not pulmonary embolism found. LE US to r/o DVT. Discussed with patient and daughter at bedside, time was given for questions all answered in detail.
[2019-07-30] MEDS ORDERED: Prevnar 13-Val Conj/PF 0.5 ML SYRINGE IM ONE (21:00)
[2019-07-30] MEDS ORDERED: Non-Formulary Item 1 EACH (Carvedilol [Carvedilol] 12.5 MG) PO SCH (21:00)
[2019-07-30] MEDS: Carvedilol 6.25 MG TAB PO SCH (22:14)
[2019-07-31 06:08] LABS: Anion Gap 12 mmol/L (10-20); BUN (Urea Nitrogen) 16 mg/dL (9.8-20.1); Calc. Creatinine Clearance 62 mL/min (70-130); Calcium 8.2 mg/dL (7.8-10.44); Carbon Dioxide 24 mmol/L (23-31); Chloride 109 mmol/L (98-107); Estimated GFR-MDRD 76; Glucose 93 mg/dL (83-110); Potassium 3.6 mmol/L (3.5-5.1); Sodium 141 mmol/L (136-145)
[2019-07-31] MEDS: Furosemide 20 MG/2 ML VIAL SLOW IVP SCH ×2 (06:10→13:11)
[2019-07-31 06:21] LABS: Band 5 % (5-11); Crenated RBC SLIGHT = 1-5 cells (100X) (None Seen); Elliptocytes SLIGHT = 2-5 cells (100X) (0-1/hpf); Eosinophils 2 % (0-10); Hemoglobin 8.5 g/dL (12.0-16.0); Hypochromia MODERATE=16-30 cells (100X) (0-5/hpf); Lymphocytes 31 % (21-51); MDiff Complete? YES; Mean Corpuscular HGB CONC 29.7 g/dL (32.0-36.0); Mean Corpuscular Hemoglobin 24.3 pg (27.0-31.0); Mean Corpuscular Volume 81.8 fL (78.0-98.0); Mean Platelet Volume 9.6 fL (7.4-10.4); Metamyelocyte 2 % (0-0); Monocytes 21 % (0-10); Neutrophil 35 % (42-75); Nucleated RBC 1 % (0); Platelet Count 274 thou/uL (130-400); Platelet Morphology Comment Appears Adequate; Reactive Lymphocytes 3 % (0-10); Red Blood Cell (RBC) Count 3.48 mill/uL (4.20-5.40); White Blood Cell (WBC) Count 7.2 thou/uL (4.8-10.8)
[2019-07-31] MEDS ORDERED: Furosemide 40 MG TAB PO SCH (09:00)
[2019-07-31] MEDS: Losartan 25 MG TAB PO SCH (09:00)
[2019-07-31] MEDS ORDERED: AMMONIUM LACTATE TOP SCH (09:00)
[2019-07-31] MEDS: Aspirin Chewable 81 MG TAB PO SCH (09:00)
[2019-07-31] MEDS: Carvedilol 6.25 MG TAB PO SCH ×2 (09:00→21:35)
[2019-07-31] MEDS ORDERED: Famotidine 20 MG TAB PO SCH (09:00)
[2019-07-31] MEDS: hydrALAZINE 25 MG TAB PO SCH ×3 (09:00→21:36)
[2019-07-31] MEDS: Ammonium Lactate 12% Lotion 225 GM BOT TOP SCH (13:08)
--- NOTE | 2019-07-31 13:14 | PDOC.HOSPP ---
- Subjective Subjective: Seen and examined. Patient breathing comfortably on low-flow nasal cannula. Her only complaint is not getting extra salt with her breakfast. Denies pain. She states that she feels like she is breathing better. Imaging was found to be negative for pulmonary embolism and DVT of the lower extremity and anticoagulation was discontinued. - Objective Vital Signs & Weight: Vital Signs (12 hours) Temp Pulse Resp BP BP BP Pulse Ox 07/31/19 11:44 98.5 F 79 20 121/58 L 94 L 07/31/19 09:00 75 145/71 H 07/31/19 07:53 98.4 F 75 18 145/71 H 96 07/31/19 06:27 97 07/31/19 06:26 78 20 07/31/19 04:06 98.8 F 80 20 116/60 93 L Weight Weight 186 lb 3.2 oz I&O: 07/30/19 07/31/19 08/01/19 06:59 06:59 06:59 Intake Total 940 Balance 940 Result Diagrams: 07/31/19 05:20 07/31/19 05:20 Radiology Reviewed by me: Yes Hospitalist ROS - Review of Systems All other systems reviewed; all pertinent +/- noted in HPI/Subj - Medication Medications: Active Medications Generic Name Dose Route Start Last Admin Trade Name Freq PRN Reason Stop Dose Admin Albuterol/Ipratropium 3 ml 07/30/19 13:00 07/31/19 06:26 Duoneb NEB 3 ml [id number] TIANA Administration Ammonium Lactate 0 gm 07/31/19 09:00 07/31/19 13:08 Laclotion TOP 225 gm DAILY TIANA Administration Aspirin 81 mg 07/30/19 09:00 07/31/19 09:00 Aspirin Chewable PO 81 mg DAILY TIANA Administration Carvedilol 12.5 mg 07/30/19 21:00 07/31/19 09:00 Coreg PO 12.5 mg BID TIANA Administration Furosemide 20 mg 07/30/19 06:00 07/31/19 13:11 Lasix SLOW IVP 20 mg 0600,1400 TIANA Administration Hydralazine HCl 25 mg 07/30/19 09:00 07/31/19 09:00 Apresoline PO 25 mg TID TIANA Administration Losartan Potassium 50 mg 07/31/19 09:00 07/31/19 09:00 Cozaar PO 50 mg DAILY TIANA Administration Pantoprazole Sodium 40 mg 07/31/19 09:00 07/31/19 09:00 Protonix PO 40 mg DAILY TIANA Administration Sodium Chloride 10 ml 07/30/19 09:00 07/31/19 09:01 Flush - Normal Saline IVF 10 ml Q12HR TIANA Administration Verapamil HCl 180 mg 07/30/19 09:00 07/31/19 08:59 Calan Er PO 180 mg DAILY TIANA Administration - Exam General Appearance: NAD, awake alert Eye: PERRL ENT: normocephalic atraumatic, moist mucosa Neck: supple, symmetric, no thyromegaly Heart: no murmur, no gallops, no rubs Respiratory: CTAB, no wheezes, no rales, no ronchi, normal chest expansion Gastrointestinal: soft, non-tender, non-distended, no guarding, no rigidity Extremities: 1+ LE edema Skin: no lesions, no rashes Neurological: cranial nerve grossly intact, no focal deficits Musculoskeletal: generalized weakness Psychiatric: oriented to person, oriented to place, flat affect Hosp A/P (1) Acute diastolic (congestive) heart failure Code(s): I50.31 - ACUTE DIASTOLIC (CONGESTIVE) HEART FAILURE Status: Acute (2) COPD (chronic obstructive pulmonary disease) Status: Acute (3) Acute respiratory failure Code(s): J96.00 - ACUTE RESPIRATORY FAILURE, UNSP W HYPOXIA OR HYPERCAPNIA Status: Acute (4) GERD (gastroesophageal reflux disease) Code(s): K21.9 - GASTRO-ESOPHAGEAL REFLUX DISEASE WITHOUT ESOPHAGITIS Status: Chronic Qualifiers: Esophagitis presence: without esophagitis Qualified Code(s): K21.9 - Gastro -esophageal reflux disease without esophagitis (5) Hypertension Code(s): I10 - ESSENTIAL (PRIMARY) HYPERTENSION Status: Chronic Qualifiers: Hypertension type: essential hypertension Qualified Code(s): I10 - Essential (primary) hypertension (6) Obesity (BMI 30.0-34.9) Code(s): E66.9 - OBESITY, UNSPECIFIED Status: Chronic - Plan Plan: medical unit with telemetry pulmonology consultation, recommendations appreciated consider cardiology consultation echocardiogram with the preserved ejection fraction of 60 to 65% at diastolic dysfunction acute diastolic CHF diagnosed on admission fluid restrictions Cadiomyopathy regimen as able, Lasix as needed - approaching euvolemia CT angiography with reinterpretation was found to be negative for acute pulmonary embolism ultrasound lower extremity negative for DVT and anticoagulation has been discontinued supplemental oxygen to maintain O2 saturation greater than 88% breathing treatments blood pressure control, medications adjusted continue other home medications as able patient desires rehabilitation placement on discharge G.I. prophylaxis DVT prophylaxis
--- NOTE | 2019-07-31 13:20 | PRG ---
DATE OF SERVICE: 07/31/2019 SUBJECTIVE: This morning, she is better, less short of breath. OBJECTIVE: VITAL SIGNS: Temperature 98, pulse 79, respirations 20, sats are 98% on 2 L, and blood pressure 121/58. CHEST: No wheezing or crackles. CARDIAC: Normal S1 and S2. No gallops. ABDOMEN: No masses. LABORATORY DATA: White count 10,000, hemoglobin and hematocrit of 8 and 25. Gram-positive cocci and blood culture, probably contamination. Echocardiogram showed normal EF. No evidence of pulmonary emboli or DVT. ASSESSMENT: Chronic obstructive pulmonary disease. I agree with discontinuing Lovenox. Continue PT, supportive care, though she needs DVT prophylaxis with Lovenox. Pulmonary follow at a distance. Call if needed. Job ID: [id number]
[2019-07-31] MEDS ORDERED: Carvedilol 6.25 MG TAB PO SCH (17:06)
[2019-07-31] MEDS: Enoxaparin Sodium 40 MG/0.4 ML SYRINGE SC SCH (21:35)
[2019-08-01] MEDS: Furosemide 20 MG/2 ML VIAL SLOW IVP SCH ×2 (05:27→16:25)
[2019-08-01] MEDS: Ammonium Lactate 12% Lotion 225 GM BOT TOP SCH (09:07)
[2019-08-01] MEDS: Terbinafine 1% 30 GM TUBE TOP SCH (09:08)
[2019-08-01] MEDS: Aspirin Chewable 81 MG TAB PO SCH (09:09)
[2019-08-01] MEDS: hydrALAZINE 25 MG TAB PO SCH ×3 (09:09→21:17)
[2019-08-01] MEDS: Carvedilol 6.25 MG TAB PO SCH ×2 (09:10→21:16)
[2019-08-01] MEDS: Losartan 25 MG TAB PO SCH (09:10)
[2019-08-01] MEDS ORDERED: Furosemide 20 MG TAB PO SCH (16:00)
--- NOTE | 2019-08-01 19:16 | PDOC.HOSPP ---
- Subjective Encounter Date: 08/01/19 Encounter Time: 19:15 Subjective: States breathing is much improved. No overnight events reported. Denies cp, sob , palpiations, or other sxs. - Objective Vital Signs & Weight: Vital Signs (12 hours) Temp Pulse Resp BP BP Pulse Ox 08/01/19 18:53 72 14 96 08/01/19 16:36 55 L 136/52 L 08/01/19 15:06 97.7 F 53 L 16 122/50 L 100 08/01/19 12:14 64 12 08/01/19 11:23 97.8 F 57 L 16 98/44 L 98 08/01/19 09:10 138/69 08/01/19 09:09 74 138/69 08/01/19 07:26 98.4 F 74 16 138/69 100 08/01/19 07:21 66 12 Weight Weight 183 lb 1.6 oz I&O: 07/31/19 08/01/19 08/02/19 06:59 06:59 06:59 Intake Total 940 852 612 Output Total 150 1500 Balance 940 702 888 Result Diagrams: 07/31/19 05:20 07/31/19 05:20 Hospitalist ROS - Review of Systems All other systems reviewed; all pertinent +/- noted in HPI/Subj - Medication Medications: Active Medications Generic Name Dose Route Start Last Admin Trade Name Freq PRN Reason Stop Dose Admin Albuterol/Ipratropium 3 ml 07/30/19 13:00 08/01/19 18:53 Duoneb NEB 3 ml [id number] TIANA Administration Ammonium Lactate 0 gm 07/31/19 09:00 08/01/19 09:07 Laclotion TOP 225 gm DAILY TIANA Administration Aspirin 81 mg 07/30/19 09:00 08/01/19 09:09 Aspirin Chewable PO 81 mg DAILY TIANA Administration Carvedilol 6.25 mg 07/31/19 21:00 08/01/19 09:10 Coreg PO 6.25 mg BID TIANA Administration Enoxaparin Sodium 40 mg 07/31/19 21:00 07/31/19 21:35 Lovenox SC 40 mg 2100 TIANA Administration Hydralazine HCl 25 mg 07/31/19 21:00 08/01/19 16:36 Apresoline PO 25 mg TID TIANA Administration Losartan Potassium 50 mg 07/31/19 09:00 08/01/19 09:10 Cozaar PO 50 mg DAILY TIANA Administration Pantoprazole Sodium 40 mg 07/31/19 09:00 08/01/19 09:10 Protonix PO 40 mg DAILY TIANA Administration Sodium Chloride 10 ml 07/30/19 09:00 08/01/19 09:11 Flush - Normal Saline IVF 10 ml Q12HR TIANA Administration Sodium Chloride 10 ml 07/30/19 07:39 08/01/19 05:27 Flush - Normal Saline IVF 10 ml PRN PRN Administration Saline Flush Terbinafine HCl 0 gm 08/01/19 09:00 08/01/19 09:08 Lamisil 1% Cream TOP 1 applic DAILY TIANA Administration Verapamil HCl 120 mg 08/01/19 09:00 08/01/19 09:08 Calan Sr PO 120 mg DAILY TIANA Administration - Exam General Appearance: NAD, awake alert Eye: PERRL, anicteric sclera ENT: normocephalic atraumatic, no oropharyngeal lesions, moist mucosa Neck: supple, symmetric, no JVD, no thyromegaly, no lymphadenopathy, no carotid bruit Heart: RRR, no murmur, no gallops, no rubs, normal peripheral pulses Respiratory: CTAB, no wheezes, no rales, no ronchi, normal chest expansion, no tachypnea, normal percussion Gastrointestinal: soft, non-tender, non-distended, normal bowel sounds, no palpable masses, no hepatomegaly, no splenomegaly, no bruit Extremities: no cyanosis, no clubbing, 2+ LE edema Skin: normal turgor, no lesions, no rashes Neurological: cranial nerve grossly intact, normal sensation to touch, no weakness, no focal deficits, no new deficit Musculoskeletal: normal tone, normal strength, no muscle wasting Psychiatric: normal affect, normal behavior, A&O x 3 Hosp A/P (1) Acute diastolic (congestive) heart failure Code(s): I50.31 - ACUTE DIASTOLIC (CONGESTIVE) HEART FAILURE Status: Acute (2) Acute respiratory failure Code(s): J96.00 - ACUTE RESPIRATORY FAILURE, UNSP W HYPOXIA OR HYPERCAPNIA Status: Acute (3) COPD (chronic obstructive pulmonary disease) Status: Acute (4) GERD (gastroesophageal reflux disease) Code(s): K21.9 - GASTRO-ESOPHAGEAL REFLUX DISEASE WITHOUT ESOPHAGITIS Status: Chronic Qualifiers: Esophagitis presence: without esophagitis Qualified Code(s): K21.9 - Gastro -esophageal reflux disease without esophagitis (5) Hypertension Code(s): I10 - ESSENTIAL (PRIMARY) HYPERTENSION Status: Chronic Qualifiers: Hypertension type: essential hypertension Qualified Code(s): I10 - Essential (primary) hypertension (6) Obesity (BMI 30.0-34.9) Code(s): E66.9 - OBESITY, UNSPECIFIED Status: Chronic - Plan Continue Lasix, switch to p.o. 20 mg twice daily Continue aspirin,, carvedilol, Cozaar, Protonix, verapamil from home Coordinate with pulmonary team Pending case management evaluation for placement Continue PT/OT Disposition: Continue diuresis. Will arrange for placement to inpatient rehab or SNF as recommended by physical therapy.
[2019-08-01] MEDS: Furosemide 20 MG TAB PO SCH (21:17)
[2019-08-01] MEDS: Enoxaparin Sodium 40 MG/0.4 ML SYRINGE SC SCH (21:18)
--- NOTE | 2019-08-02 07:55 | PDOC.HOSPP ---
- Subjective Encounter Date: 08/02/19 Encounter Time: 09:00 Subjective: Patient without complaints. No SOB. No fever. No chest pain. Still on some O2. - Objective Vital Signs & Weight: Vital Signs (12 hours) Temp Pulse Resp BP BP Pulse Ox 08/02/19 07:51 80 14 08/02/19 07:44 97.7 F 74 15 142/67 H 96 08/02/19 04:00 97.9 F 82 16 139/59 L 93 L 08/02/19 00:00 98 F 77 16 120/56 L 94 L 08/01/19 21:17 74 131/58 L 08/01/19 21:16 131/58 L 08/01/19 20:00 98.7 F 74 16 131/58 L 96 Weight Weight 183 lb 1.6 oz I&O: 08/01/19 08/02/19 08/03/19 06:59 06:59 06:59 Intake Total 852 612 Output Total 150 2000 Balance 522 -2751 Result Diagrams: 07/31/19 05:20 07/31/19 05:20 Hospitalist ROS - Review of Systems Constitutional: denies: fever, chills Respiratory: denies: cough, shortness of breath Cardiovascular: denies: chest pain, palpitations Gastrointestinal: denies: nausea, vomiting, abdominal pain - Medication Medications: Active Medications Generic Name Dose Route Start Last Admin Trade Name Freq PRN Reason Stop Dose Admin Albuterol/Ipratropium 3 ml 07/30/19 13:00 08/02/19 07:51 Duoneb NEB 3 ml [id number] TIANA Administration Ammonium Lactate 0 gm 07/31/19 09:00 08/01/19 09:07 Laclotion TOP 225 gm DAILY TIANA Administration Aspirin 81 mg 07/30/19 09:00 08/01/19 09:09 Aspirin Chewable PO 81 mg DAILY TIANA Administration Carvedilol 6.25 mg 07/31/19 21:00 08/01/19 21:16 Coreg PO 6.25 mg BID TIANA Administration Enoxaparin Sodium 40 mg 07/31/19 21:00 08/01/19 21:18 Lovenox SC 40 mg 2100 TIANA Administration Furosemide 20 mg 08/01/19 21:00 08/01/19 21:17 Lasix PO 20 mg BID TIANA Administration Hydralazine HCl 25 mg 07/31/19 21:00 08/01/19 21:17 Apresoline PO 25 mg TID TIANA Administration Losartan Potassium 50 mg 07/31/19 09:00 08/01/19 09:10 Cozaar PO 50 mg DAILY TIANA Administration Pantoprazole Sodium 40 mg 07/31/19 09:00 08/01/19 09:10 Protonix PO 40 mg DAILY TIANA Administration Sodium Chloride 10 ml 07/30/19 09:00 08/01/19 21:18 Flush - Normal Saline IVF 10 ml Q12HR TIANA Administration Sodium Chloride 10 ml 07/30/19 07:39 08/01/19 05:27 Flush - Normal Saline IVF 10 ml PRN PRN Administration Saline Flush Terbinafine HCl 0 gm 08/01/19 09:00 08/01/19 09:08 Lamisil 1% Cream TOP 1 applic DAILY TIANA Administration Verapamil HCl 120 mg 08/01/19 09:00 08/01/19 09:08 Calan Sr PO 120 mg DAILY TIANA Administration - Exam General Appearance: NAD, awake alert ENT: moist mucosa Heart: RRR, no murmur, no gallops, no rubs Respiratory: CTAB, no wheezes, no rales, no ronchi Gastrointestinal: soft, non-tender, non-distended, normal bowel sounds Extremities: no cyanosis, no clubbing, no edema Extremities - other findings: edema resolved Psychiatric: normal affect, normal behavior Hosp A/P (1) Acute on chronic diastolic (congestive) heart failure Code(s): I50.33 - ACUTE ON CHRONIC DIASTOLIC (CONGESTIVE) HEART FAILURE Status : Acute (2) Acute respiratory failure with hypoxia Code(s): J96.01 - ACUTE RESPIRATORY FAILURE WITH HYPOXIA Status: Acute (3) COPD (chronic obstructive pulmonary disease) Status: Acute (4) GERD (gastroesophageal reflux disease) Code(s): K21.9 - GASTRO-ESOPHAGEAL REFLUX DISEASE WITHOUT ESOPHAGITIS Status: Chronic Qualifiers: Esophagitis presence: without esophagitis Qualified Code(s): K21.9 - Gastro -esophageal reflux disease without esophagitis (5) Hypertension Code(s): I10 - ESSENTIAL (PRIMARY) HYPERTENSION Status: Chronic Qualifiers: Hypertension type: essential hypertension Qualified Code(s): I10 - Essential (primary) hypertension (6) Obesity (BMI 30.0-34.9) Code(s): E66.9 - OBESITY, UNSPECIFIED Status: Chronic - Plan Patient improving with diuresis, ready to d/c to rehab or SNF. Case management consult. DVT Proph: Lovenox
[2019-08-02] MEDS: Ammonium Lactate 12% Lotion 225 GM BOT TOP SCH (08:33)
[2019-08-02] MEDS: Terbinafine 1% 30 GM TUBE TOP SCH (08:33)
[2019-08-02] MEDS: Losartan 25 MG TAB PO SCH (08:34)
[2019-08-02] MEDS: Furosemide 20 MG TAB PO SCH ×2 (08:34→20:06)
[2019-08-02] MEDS: Aspirin Chewable 81 MG TAB PO SCH (08:34)
[2019-08-02] MEDS: Carvedilol 6.25 MG TAB PO SCH ×2 (08:34→20:05)
[2019-08-02] MEDS: hydrALAZINE 25 MG TAB PO SCH ×3 (08:35→20:06)
[2019-08-02] MEDS: Enoxaparin Sodium 40 MG/0.4 ML SYRINGE SC SCH (20:05)
--- NOTE | 2019-08-03 07:17 | PDOC.HOSPP ---
- Subjective Encounter Date: 08/03/19 Encounter Time: 11:00 Subjective: Patient without complaints. Seems a bit confused about why she is here and why she has to have IVs in. - Objective Vital Signs & Weight: Vital Signs (12 hours) Temp Pulse Resp BP Pulse Ox 08/03/19 07:08 81 16 98 08/03/19 03:45 98.5 F 81 20 105/47 L 94 L 08/02/19 23:35 70 16 97 08/02/19 23:18 98.5 F 81 16 103/46 L 95 08/02/19 19:23 97.5 F L 77 20 138/63 97 Weight Weight 183 lb I&O: 08/02/19 08/03/19 08/04/19 06:59 06:59 06:59 Intake Total 962 1100 Output Total 2000 800 Balance -1038 300 Result Diagrams: 07/31/19 05:20 07/31/19 05:20 Hospitalist ROS - Review of Systems Constitutional: denies: fever, chills Respiratory: denies: cough, shortness of breath Cardiovascular: denies: chest pain, palpitations, orthopnea Gastrointestinal: denies: nausea, vomiting, abdominal pain - Medication Medications: Active Medications Generic Name Dose Route Start Last Admin Trade Name Freq PRN Reason Stop Dose Admin Albuterol/Ipratropium 3 ml 07/30/19 13:00 08/03/19 07:08 Duoneb NEB 3 ml [id number] TIANA Administration Ammonium Lactate 0 gm 07/31/19 09:00 08/02/19 08:33 Laclotion TOP 225 gm DAILY TIANA Administration Aspirin 81 mg 07/30/19 09:00 08/02/19 08:34 Aspirin Chewable PO 81 mg DAILY TIANA Administration Carvedilol 6.25 mg 07/31/19 21:00 08/02/19 20:05 Coreg PO 6.25 mg BID TIANA Administration Enoxaparin Sodium 40 mg 07/31/19 21:00 08/02/19 20:05 Lovenox SC 40 mg 2100 TIANA Administration Furosemide 20 mg 08/01/19 21:00 08/02/19 20:06 Lasix PO 20 mg BID TIANA Administration Hydralazine HCl 25 mg 07/31/19 21:00 08/02/19 20:06 Apresoline PO 25 mg TID TIANA Administration Losartan Potassium 50 mg 07/31/19 09:00 08/02/19 08:34 Cozaar PO 50 mg DAILY TIANA Administration Pantoprazole Sodium 40 mg 07/31/19 09:00 08/02/19 08:34 Protonix PO 40 mg DAILY TIANA Administration Sodium Chloride 10 ml 07/30/19 09:00 08/02/19 20:08 Flush - Normal Saline IVF 10 ml Q12HR TIANA Administration Sodium Chloride 10 ml 07/30/19 07:39 08/01/19 05:27 Flush - Normal Saline IVF 10 ml PRN PRN Administration Saline Flush Terbinafine HCl 0 gm 08/01/19 09:00 08/02/19 08:33 Lamisil 1% Cream TOP 1 applic DAILY TIANA Administration Verapamil HCl 120 mg 08/01/19 09:00 08/02/19 08:33 Calan Sr PO 120 mg DAILY TIANA Administration - Exam General Appearance: NAD, awake alert ENT: moist mucosa Heart: RRR, no murmur, no gallops, no rubs Respiratory: CTAB, no wheezes, no rales, no ronchi Gastrointestinal: soft, non-tender, non-distended, normal bowel sounds Extremities: no edema Psychiatric - other findings: flat affect, slow responses similar to yesterday Hosp A/P (1) Acute on chronic diastolic (congestive) heart failure Code(s): I50.33 - ACUTE ON CHRONIC DIASTOLIC (CONGESTIVE) HEART FAILURE Status : Acute (2) Acute respiratory failure with hypoxia Code(s): J96.01 - ACUTE RESPIRATORY FAILURE WITH HYPOXIA Status: Acute (3) COPD (chronic obstructive pulmonary disease) Status: Acute (4) GERD (gastroesophageal reflux disease) Code(s): K21.9 - GASTRO-ESOPHAGEAL REFLUX DISEASE WITHOUT ESOPHAGITIS Status: Chronic Qualifiers: Esophagitis presence: without esophagitis Qualified Code(s): K21.9 - Gastro -esophageal reflux disease without esophagitis (5) Hypertension Code(s): I10 - ESSENTIAL (PRIMARY) HYPERTENSION Status: Chronic Qualifiers: Hypertension type: essential hypertension Qualified Code(s): I10 - Essential (primary) hypertension (6) Obesity (BMI 30.0-34.9) Code(s): E66.9 - OBESITY, UNSPECIFIED Status: Chronic - Plan Awaiting home O2, then can go home with HH PT/OT. Will obtain home nebulizer as well. DVT Proph: Lovenox
--- NOTE | 2019-08-03 09:06 | DIS ---
DATE OF ADMISSION: 07/30/2019 DATE OF DISCHARGE: 08/03/2019 PRIMARY CARE PHYSICIAN: Ellie Winn MD. REASON FOR ADMISSION: Weakness and shortness of breath. DIAGNOSES AT DISCHARGE: 1. Acute on chronic diastolic congestive heart failure. 2. Acute on chronic obstructive pulmonary disease. 3. Acute respiratory failure with hypoxia. 4. Gastroesophageal reflux disease. 5. Hypertension. 6. Obesity. PROCEDURES: 1. CT of the chest and thorax with contrast initially read as a possible pulmonary embolism, re-read showed that there was no evidence of pulmonary artery embolism at the level of segmental arteries, just some lymphadenopathy. 2. Ultrasound of lower extremities showing no evidence for lower extremity DVTs. 3. Echocardiogram showing ejection fraction of 60% to 65% with diastolic dysfunction and some moderate to severe elevated pulmonary artery pressures. CONSULTATIONS: Pulmonology, Dr. Salgado. SUMMARY OF HOSPITAL COURSE: This is an 89-year-old female with a history of congestive heart failure, hypertension, COPD, and previous pneumonia. The patient was brought to the emergency room after becoming short of breath and weak during her nebulizer treatments. She was recently hospitalized with pneumonia and was transferred to rehab and then a SNF after that. The patient and family report increased swelling of both lower extremities. The patient was seen in the emergency room, had initial concern for pulmonary embolism on CT angio, so she was started on anticoagulants. However, over-read of this showed that there was no pulmonary embolism, so the anticoagulants were stopped. The patient was noted to have an elevated brain natriuretic peptide. She was admitted to the hospital, given Lasix with good diuresis and resolution of her shortness of breath. She was also treated for COPD and she was doing much better by the time of discharge. At discharge, we did discuss possibility of going to SNF. Family decided they would prefer to take her home. She was tried off all oxygen prior to discharge and desatted to 85% on room air, so home oxygen is being arranged along with home PT and OT. Once this is arranged, the patient will go home either tonight or tomorrow morning. DISCHARGE MANAGEMENT: Discharge home with Home Health. ACTIVITY: As tolerated. DIET: Healthy heart, low-sodium, fluid-restricted diet. THERAPIES: Occupational and physical therapy. EQUIPMENT SUPPLIES: Home oxygen. Home Nebulizer. FOLLOWUP: With cardiac rehab in [place] with Dr. Winn on the and with Dr. Cancino as directed. DISCHARGE MEDICATIONS: 1. Furosemide 20 mg twice a day, 60 tablets dispensed. 2. Ammonium lactate 12% cream applied to feet. 3. Aspirin 81 mg daily. 4. Bisacodyl 5 mg twice a day as needed for constipation. 5. Debrox Otic drops as needed. 6. Carvedilol 12.5 mg twice a day. 7. Hydralazine 25 mg 3 times a day. 8. Losartan 100 mg daily. 9. Magnesium hydroxide as needed. 10. Protonix 40 mg daily. 11. Terbinafine cream applied to toenails for 8 weeks. 12. Tramadol as needed. 13. Verapamil extended release 180 mg daily. 14. Acetaminophen as needed. 15. Ibuprofen as needed. 16. DuoNeb as needed. TIME SPENT: Arranging the details of this discharge took 32 minutes. Job ID: [id number] MTDD
[2019-08-03] MEDS: Aspirin Chewable 81 MG TAB PO SCH (09:12)
[2019-08-03] MEDS: Furosemide 20 MG TAB PO SCH (09:12)
[2019-08-03] MEDS: Carvedilol 6.25 MG TAB PO SCH (09:12)
[2019-08-03] MEDS: hydrALAZINE 25 MG TAB PO SCH ×2 (09:17→15:40)
[2019-08-03] MEDS: Losartan 25 MG TAB PO SCH (09:17)
[2019-08-03] MEDS: Terbinafine 1% 30 GM TUBE TOP SCH (09:18)
[2019-08-03] MEDS: Ammonium Lactate 12% Lotion 225 GM BOT TOP SCH (09:18)
[2019-08-03 15:23] VITALS: TEMP 98.7
[2019-08-03 15:41] VITALS: BP 104/63
== END 2019-08-03 17:02 | disposition home health service (06) | DRG 291 ==
LOC: ERS 23:22 → 2SE 07-30 04:25
PROVIDERS: ADMIT Internal Medicine; ATTEND Emergency Medicine
DX: I11.0 Hypertensive heart disease with heart failure (principal); J96.01 Acute respiratory failure with hypoxia; J44.1 Chronic obstructive pulmonary disease with (acute) exacerbation; I50.33 Acute on chronic diastolic (congestive) heart failure; F17.210 Nicotine dependence, cigarettes, uncomplicated; E66.01 Morbid (severe) obesity due to excess calories; K21.9 Gastro-esophageal reflux disease without esophagitis; Z90.710 Acquired absence of both cervix and uterus; Z68.32 Body mass index [BMI] 32.0-32.9, adult
CPT/HCPCS: 36415; 51701; 71045; 71275; 80048; 80053; 81003; 83880; 84443; 84484; 85014; 85018; 85025; 85049; 87040; 87086; 87149; 87804; 93005; 93306; 93798; 93970; 94640; 96365; 96366; 96367; 96372; A4353; J0692; J1650; J1940; J3370; J7620; Q9967

== ENCOUNTER 2019-08-31 11:02 | Inpatient (IN) | payer MEDICARE, OTHER ==
--- NOTE | 2019-08-31 11:42 | RAD ---
Portable frontal chest radiograph: 08/31/2019 COMPARISON: 07/29/2019 HISTORY: Chest pain FINDINGS: There is atherosclerotic calcification of the aortic arch. Coarse increased linear intersti tial density noted bilaterally with a perihilar and bibasilar predominance. No lobar consolidation. Probable small bilateral pleural effusions. IMPRESSION: Increased linear interstitial density in the perihilar regions and both lung bases, nonsp ecific. Findings may be related to an interstitial infectious process or pulmonary edema.
[2019-08-31 11:49] LABS: #Basophils 0.1 thou/uL (0.0-0.2); #Eosinphils 0.7 thou/uL (0.0-0.7); %Basophils 0.7 % (0.0-1.0); %Eosinophils 8.2 % (0.0-10.0); %Lymphocytes 23.2 % (21.0-51.0); %Monocytes 11.4 % (0.0-10.0); %Neutrophils 56.5 % (42.0-75.0); Hemoglobin 7.8 g/dL (12.0-16.0); Mean Corpuscular HGB CONC 30.5 g/dL (32.0-36.0); Mean Corpuscular Hemoglobin 23.5 pg (27.0-31.0); Mean Platelet Volume 10.1 fL (7.4-10.4); Platelet Count 271 thou/uL (130-400); RBC Distribution Width 18.6 % (11.5-14.5); Red Blood Cell (RBC) Count 3.32 mill/uL (4.20-5.40); White Blood Cell (WBC) Count 8.8 thou/uL (4.8-10.8)
[2019-08-31 12:45] LABS: ALT (SGPT) 8 U/L (8-55); AST (SGOT) 14 U/L (5-34); Albumin 3.4 g/dL (3.4-4.8); Alkaline Phosphatase 95 U/L (40-110); Anion Gap 13 mmol/L (10-20); BUN (Urea Nitrogen) 10 mg/dL (9.8-20.1); Bilirubin, Total 0.5 mg/dL (0.2-1.2); CK (CPK) 28 U/L (29-168); Calc. Creatinine Clearance 0 mL/min (70-130); Calcium 8.7 mg/dL (7.8-10.44); Carbon Dioxide 24 mmol/L (23-31); Chloride 107 mmol/L (98-107); Estimated GFR-MDRD 78; Globulin 2.7 g/dL (2.4-3.5); Glucose 114 mg/dL (83-110); Potassium 3.5 mmol/L (3.5-5.1); Protein, Total 6.1 g/dL (6.0-8.3); Sodium 140 mmol/L (136-145)
[2019-08-31] MEDS ORDERED: Ondansetron ODT 4 MG TAB PO PRN (13:03)
[2019-08-31] MEDS ORDERED: Nitroglycerin 0.4 MG TAB (25 Tab Bottle) PO PRN (13:03)
[2019-08-31 14:16] LABS: Troponin I 0.014 ng/mL (< 0.028)
[2019-08-31 16:53] LABS: Troponin I 0.013 ng/mL (< 0.028)
[2019-08-31 19:37] LABS: Troponin I 0.013 ng/mL (< 0.028)
--- NOTE | 2019-08-31 20:11 | HP ---
CHIEF COMPLAINT: Chest pain. HISTORY OF PRESENT ILLNESS: Ms. Billings is an 89-year-old female with past medical history of hypertension, congestive heart failure, among others, presented to the emergency room with substernal chest pain that started this a.m. The patient was given aspirin and nitroglycerin. Pain was resolved. The patient also has associated shortness of breath with pain. Denies fever, coughing, nausea, vomiting, or abdominal pain. The patient was admitted to the hospital 2 to 3 weeks ago for congestive heart failure. Initial workup in the emergency room including troponin, EKG, no acute finding. Given the patient's presentation and risk factors, the patient has been admitted to hospital for further management. PAST MEDICAL HISTORY: 1. Hypertension. 2. Congestive heart failure. PAST SURGICAL HISTORY: 1. Stent placement for poor circulation in the left leg. 2. Hysterectomy. FAMILY HISTORY: Reviewed and noncontributory. HOME MEDICATIONS: Please see home medication reconciliation form for updated medications. ALLERGIES: NO KNOWN ALLERGIES. REVIEW OF SYSTEMS: Review of 14-systems negative except what is mentioned in history of present illness. PHYSICAL EXAMINATION: GENERAL: The patient is awake and alert. VITAL SIGNS: Blood pressure is 144/67, pulse is 78, respiratory rate is 18, and temperature 97.7. HEAD: Normocephalic and atraumatic. NECK: Supple. No JVD. CHEST: Fair bilateral air entry. HEART: S1 and S2. Regular. ABDOMEN: Soft and nontender. Bowel sounds present. NEUROLOGIC: Awake, alert, and oriented. PSYCH: Unable to assess. EXTREMITIES: No clubbing. No cyanosis. GENITOURINARY: No suprapubic tenderness. No flank tenderness. ASSESSMENT: 1. Acute chest pain, rule out acute coronary syndrome. 2. Hypertension. 3. Congestive heart failure, chronic. PLAN: 1. Admit. 2. Telemetry monitoring. 3. Aspirin. 4. Serial troponins. 5. Reconcile home medications. 6. Consider Cardiology consultation in a.m. 7. DVT prophylaxis as appropriate. 8. Expected length of stay at least 1 midnight, if patient is stable and further workup negative. Job ID: [id number]
[2019-08-31] MEDS: Carvedilol 6.25 MG TAB PO SCH (20:53)
[2019-08-31] MEDS: hydrALAZINE 25 MG TAB PO SCH (20:54)
[2019-08-31] MEDS ORDERED: Famotidine 20 MG TAB PO SCH (21:00)
[2019-08-31] MEDS: Acetaminophen 325 MG TAB PO PRN (21:51)
[2019-09-01 05:49] LABS: Eosinophils 5 % (0-10); Hemoglobin 7.5 g/dL (12.0-16.0); Hypochromia SLIGHT = 6-15 cells (100X) (0-5/hpf); Lymphocytes 36 % (21-51); MDiff Complete? YES; Mean Corpuscular HGB CONC 30.5 g/dL (32.0-36.0); Mean Corpuscular Hemoglobin 23.4 pg (27.0-31.0); Mean Corpuscular Volume 76.8 fL (78.0-98.0); Mean Platelet Volume 10.7 fL (7.4-10.4); Microcytosis SLIGHT = 6-15 cells (100X) (0-5/hpf); Monocytes 7 % (0-10); Neutrophil 52 % (42-75); Platelet Count 263 thou/uL (130-400); Platelet Morphology Comment Appears Adequate; RBC Distribution Width 18.3 % (11.5-14.5); White Blood Cell (WBC) Count 6.9 thou/uL (4.8-10.8)
[2019-09-01] MEDS: Acetaminophen 325 MG TAB PO PRN (06:58)
[2019-09-01] MEDS ORDERED: Acetaminophen 325 MG TAB PO PRN (07:57)
[2019-09-01] MEDS ORDERED: Milk Of Magnesia 30 ML UDCUP PO PRN (07:57)
[2019-09-01] MEDS ORDERED: Bisacodyl 5 MG TAB PO PRN (07:57)
[2019-09-01 08:57] LABS: Reticulocyte Count 1.7 % (0.5-1.5)
[2019-09-01 08:58] LABS: Magnesium 1.7 mg/dL (1.6-2.6)
[2019-09-01] MEDS ORDERED: Aspirin 325 mg Enteric Coated Tablet PO SCH (09:00)
[2019-09-01] MEDS ORDERED: Aspirin 81 mg Enteric Coated Tablet PO SCH (09:00)
[2019-09-01] MEDS ORDERED: Aspirin Chewable 81 MG TAB PO SCH (09:00)
[2019-09-01] MEDS ORDERED: AMMONIUM LACTATE TOP SCH (09:00)
[2019-09-01] MEDS: Losartan 25 MG TAB PO SCH (09:25)
[2019-09-01] MEDS: Furosemide 20 MG TAB PO SCH ×2 (09:25→20:29)
[2019-09-01] MEDS: traMADol HCl 50 MG TAB PO PRN (09:25)
[2019-09-01] MEDS: Carvedilol 6.25 MG TAB PO SCH ×2 (09:26→20:28)
[2019-09-01] MEDS: hydrALAZINE 25 MG TAB PO SCH ×3 (09:26→20:29)
[2019-09-01] MEDS ORDERED: Potassium Chloride 10 MEQ TAB PO SCH (10:00)
[2019-09-01] MEDS: Potassium Chloride 10 MEQ TAB PO SCH (15:28)
[2019-09-01] MEDS ORDERED: Iron Sucrose Complex 200 MG in Sodium Chloride 0.9% 250 ML 250 ML IVPB SCH (16:30)
[2019-09-01] MEDS ORDERED: Iron, Sodium Ferric Gluconate 250 MG in Sodium Chloride 0.9% 100 ML IVPB SCH (17:15)
--- NOTE | 2019-09-01 17:41 | PDOC.HOSPP ---
- Subjective Encounter Date: 09/01/19 Encounter Time: 16:00 - Objective Vital Signs & Weight: Vital Signs (12 hours) Temp Pulse Resp BP BP Pulse Ox 09/01/19 15:38 97.4 F L 52 L 16 118/56 L 94 L 09/01/19 15:28 50 L 09/01/19 13:19 50 L 16 96 09/01/19 11:28 98.3 F 58 L 14 152/63 H 99 09/01/19 09:26 72 179/74 H 09/01/19 07:26 98.2 F 72 19 179/74 H 96 Weight Weight 181 lb 10.574 oz I&O: 08/31/19 09/01/19 09/02/19 06:59 06:59 06:59 Intake Total 240 540 Output Total 400 Balance -160 540 Result Diagrams: 09/01/19 04:45 08/31/19 11:29 Radiology Reviewed by me: Yes (CXR - No infiltrate) EKG Reviewed by me: Yes (SR) Hospitalist ROS - Medication Medications: Active Medications Generic Name Dose Route Start Last Admin Trade Name Freq PRN Reason Stop Dose Admin Albuterol/Ipratropium 3 ml 09/01/19 13:00 09/01/19 13:19 Duoneb NEB 3 ml [id number] TIANA Administration Carvedilol 12.5 mg 08/31/19 21:00 09/01/19 09:26 Coreg PO 12.5 mg BID TIANA Administration Furosemide 20 mg 09/01/19 09:00 09/01/19 09:25 Lasix PO 20 mg BID TIANA Administration Hydralazine HCl 25 mg 08/31/19 21:00 09/01/19 15:28 Apresoline PO 25 mg TID TIANA Administration Losartan Potassium 100 mg 09/01/19 09:00 09/01/19 09:25 Cozaar PO 100 mg DAILY TIANA Administration Nitroglycerin 0.4 mg 08/31/19 13:03 09/01/19 07:02 Nitrostat PO 0.4 mg Q5MIN PRN Administration Chest Pain Pantoprazole Sodium 40 mg 09/01/19 09:00 09/01/19 09:25 Protonix PO 40 mg DAILY TIANA Administration Potassium Chloride 10 meq 09/01/19 17:00 09/01/19 15:28 Klor-Con 10 PO 10 meq BID-WM TIANA Administration Tramadol HCl 50 mg 09/01/19 07:57 09/01/19 09:25 Ultram PO 50 mg DAILY PRN Administration Moderate Pain (4-6) Verapamil HCl 180 mg 09/01/19 09:00 09/01/19 09:25 Calan Er PO 180 mg DAILY TIANA Administration Hosp A/P - Plan Chest pain - Prob due to symptomatic anemia Anemia - Hb >12 2 months ago HTN Chronic diastolic HF Obesity BMI 33.2 PVD s/p stent CKD 2 PLAN: Full code. DPOA - daughter Cardio input appreciated Hold ASA Recent Echo reviewed Consult GI Clear liqd diet
--- NOTE | 2019-09-01 19:38 | CON ---
DATE OF CONSULTATION: HISTORY OF PRESENT ILLNESS: Eldon Billings is an 89-year-old black female, who was recently admitted in July 2019 with diastolic heart failure. Echocardiogram at that time revealed ejection fraction of 60% to 65% with evidence of diastolic dysfunction, mild concentric left ventricular hypertrophy, mild mitral and tricuspid regurgitation, and moderate to severely elevated pulmonary artery pressure. She was diuresed with improvement in her shortness of breath. She now presented yesterday to the emergency room with chest discomfort. She is uncertain how long this lasted. She was given sublingual nitroglycerin in the emergency room. She is uncertain how long this discomfort lasted, and the most accurate timing I can get from her is that it was less than an hour. PAST MEDICAL HISTORY: History of diastolic heart failure, hypertension. MEDICATIONS: 1. Aspirin 81 daily. 2. Carvedilol 12.5 mg b.i.d. 3. Furosemide 20 b.i.d. 4. Hydralazine 25 t.i.d. 5. Ibuprofen 600 mg q.8 hours p.r.n. 6. DuoNebs. 7. Losartan 100 daily. 8. Protonix 40 daily. 9. Tramadol 1 tablet daily p.r.n. 10. Verapamil 180 daily. ALLERGIES: NONE. PAST SURGICAL HISTORY: Stent placement in the leg artery, hysterectomy. SOCIAL HISTORY: She does not smoke or drink. REVIEW OF SYSTEMS: Negative. Specifically, the patient denies any melena, dark stools, or hematochezia. PHYSICAL EXAMINATION: VITAL SIGNS: Blood pressure 118/56, pulse 52. HEENT: PERRL. NECK: Supple. CHEST: Clear. CARDIAC: S1 and S2 normal without any S3, S4, or murmurs. ABDOMEN: Normal bowel sounds without tenderness or organomegaly. EXTREMITIES: Revealed no clubbing, cyanosis, or edema. NEUROLOGIC: Grossly intact. LABORATORY DATA: Hemoglobin 7.5, hematocrit 24.5, white count 6900, and platelets 263,000. Iron 17, TIBC 325. Troponin I is normal x5. BNP 208.6. Sodium 140, potassium 3.5, chloride 107, carbon dioxide 24, BUN 10, and creatinine 0.84. IMPRESSION: 1. Chest discomfort with negative cardiac enzymes. 2. Severe anemia with hemoglobin dropping from 12.7 in May 2019 to 7.5 at this time. This appears to be iron deficiency anemia. 3. History of diastolic heart failure. 4. Hypertension. RECOMMENDATIONS: The etiology of her iron deficiency anemia needs to be further evaluated. She certainly may need transfusion. Once the etiology of her anemia is known, consideration should be given to adenosine Cardiolite testing. If the Cardiolite test is abnormal, please contact me. Otherwise, I will sign off. Job ID: [id number]
[2019-09-01] MEDS: Cyanocobalamin (Vitamin B-12) 1,000 MCG TAB PO SCH (20:28)
[2019-09-01] MEDS: Senokot S 8.6-50 MG TAB PO SCH (20:29)
[2019-09-01] MEDS: Polyethylene Glycol 3350 17 GM Packet PO SCH (20:30)
[2019-09-02 05:29] LABS: Anion Gap 15 mmol/L (10-20); BUN (Urea Nitrogen) 10 mg/dL (9.8-20.1); Calc. Creatinine Clearance 68 mL/min (70-130); Calcium 8.7 mg/dL (7.8-10.44); Carbon Dioxide 23 mmol/L (23-31); Chloride 107 mmol/L (98-107); Estimated GFR-MDRD 87; Glucose 92 mg/dL (83-110); Sodium 141 mmol/L (136-145)
[2019-09-02 07:13] LABS: Hemoglobin 8.1 g/dL (12.0-16.0); Platelet Count 272 thou/uL (130-400)
[2019-09-02 07:37] LABS: Thyroid Stimulating Hormone 0.5731 uIU/mL (0.35-4.94)
--- NOTE | 2019-09-02 08:02 | RAD ---
XR Abdomen 1 View/KUB HISTORY: Constipation COMPARISON: None. FINDINGS: The bowel gas pattern is unremarkable. There is fecal material in the colon. No suspicious calcifications are seen. There are degenerative changes in the spine.
[2019-09-02] MEDS ORDERED: Iron Sucrose Complex 200 MG in Sodium Chloride 0.9% 250 ML 250 ML IVPB SCH (09:00)
[2019-09-02] MEDS: Polyethylene Glycol 3350 17 GM Packet PO SCH ×2 (10:09→21:50)
[2019-09-02] MEDS: Potassium Chloride 10 MEQ TAB PO SCH ×2 (10:10→16:02)
[2019-09-02] MEDS: Carvedilol 6.25 MG TAB PO SCH ×2 (10:10→21:44)
[2019-09-02] MEDS: Losartan 25 MG TAB PO SCH (10:10)
[2019-09-02] MEDS: Furosemide 20 MG TAB PO SCH ×2 (10:11→21:42)
[2019-09-02] MEDS: Senokot S 8.6-50 MG TAB PO SCH ×2 (10:11→21:50)
[2019-09-02] MEDS: Iron, Sodium Ferric Gluconate 250 MG in Sodium Chloride 0.9% 100 ML IVPB SCH (10:11)
[2019-09-02] MEDS: hydrALAZINE 25 MG TAB PO SCH ×3 (10:12→23:08)
--- NOTE | 2019-09-02 10:23 | PDOC.PALCO ---
Palliative Care Consult - Consult Details Requesting Physician: Dr Wong Reason for Consult: goals of care - Pertinent HPI 89 year old female who is a moderate historian. States she is cared for in the home setting by family. Onset of chest pain so was transported to the emergency room for evaluation. Shortness of breath with chest pain, no nausea vomiting. Secondary to age, risk factors Ms Billings was admitted for further evaluation. - Pertinent PMH Hypertension, physical debility, congestive heart failure - Social History Smoking Status: Never smoker Smoking: no tobacco exposure Alcohol Use: none Drug Use History: none Living Situation: other (with family ) - Medications MAR Reviewed: Yes - Allergies Allergies/Adverse Reactions: Allergies Allergy/AdvReac Type Severity Reaction Status Date / Time No Known Allergies Allergy Verified 08/31/19 17:00 - ROS Constitutional: weakness ENT: other (denies difficulity swallowing, congetsion, ear pain) Respiratory: shortness of breath, other (denies cough,) Cardiology: other (denies chest pain, palpitation) Genitourinary: incontinence, other Musculoskeletal: arthritis/arthralgias Neurological: other (deneis tremor, headache, confusion) Skin: other (denies rash, puritis) Psychological: other (denies depression, anxiety) - Objective Vital Signs: Vital Signs - Most Recent Temp Pulse Resp BP Pulse Ox 98.3 F 87 18 177/72 H 93 L 09/02/19 07:57 09/02/19 07:57 09/02/19 07:57 09/02/19 07:57 09/02/19 07:57 Palliative Performance Scale: 40 - Physical Exam Constitutional: NAD HEENT: EOMI, moist MMs, sclera anicteric Respiratory: unlabored breathing Cardiovascular: RRR Gastrointestinal: soft, non-tender, positive bowel sounds Genitourinary: continent Musculoskeletal: no cyanosis, no clubbing Neurology: moves all 4 limbs Skin: cap refill <2 seconds Psychiatric: normal affect, normal mood - Problem List (1) Palliative care encounter Code(s): Z51.5 - ENCOUNTER FOR PALLIATIVE CARE Current Visit: Yes Status: Acute (2) Acute on chronic diastolic (congestive) heart failure Code(s): I50.33 - ACUTE ON CHRONIC DIASTOLIC (CONGESTIVE) HEART FAILURE Current Visit: No Status: Acute (3) Hypertension Code(s): I10 - ESSENTIAL (PRIMARY) HYPERTENSION Current Visit: No Status: Chronic Qualifiers: Hypertension type: essential hypertension Qualified Code(s): I10 - Essential (primary) hypertension (4) Obesity (BMI 30.0-34.9) Code(s): E66.9 - OBESITY, UNSPECIFIED Current Visit: No Status: Chronic - Plan/Recommendations Plan: Visited and assessed patient. Also called and spoke with one of patients daughters. She will be here this afternoon, she will let Palliative Care know when she arrives. Discussed we would like to address age and multiple morbidities with increase weakness and frequent need for hospital stays and establish a Goal of Care with this information. Also revisited resuscitation status, current full resuscitation measures. Expressed that we would like to revisit with patient and family when they arrive. [] minutes spent on this encounter with >50% of the time in counseling and coordination of care. Thank you for this very appropriate consult.
--- NOTE | 2019-09-02 10:44 | CON ---
DATE OF CONSULTATION: 09/01/2019 REASON FOR CONSULTATION: Acute anemia. HISTORY OF PRESENT ILLNESS: Eldon Billings is a very pleasant 89-year-old female hospitalized with history of chest pain. The pain was substernal and it started yesterday morning. The pain was relieved with aspirin and nitroglycerin. The patient also had some dyspnea along with this chest pain. There is no history of any fever or coughing. No history of abdominal pain. There is no nausea or vomiting. The patient had been seen by Cardiology because of chest pain. The patient was found to have anemia. Her hemoglobin is low around 7.8 yesterday. Hematocrit 25.6. MCV 77. Another CBC done today in the morning. Hemoglobin is 7.5, hematocrit . The patient was hospitalized several times over the last 4 months. She was initially hospitalized in May of 2019 with abdominal pain, fever, was found to have UTI. She was treated with antibiotics and was sent home. The patient was hospitalized again I believe in July of 2019, with chest pain, dyspnea, and was seen by Dr. Salgado of Pulmonary. The initial CAT scan of the chest showed possible pulmonary embolism, but it was revised and it was felt to be chronic scarring and conscious sedation. The patient was discharged home after that. The patient comes back with chest pain. During the last admission, blood count was normal. Hemoglobin in May of 2019 was 12.7. Now, blood count dropped to 7.5. The patient denies any GI symptoms at all. No abdominal pain, nausea, or vomiting. No history of dysphagia or odynophagia. No history of bleeding from the gums or nose bleed. No history of hematochezia. No melena. The patient has had no stool yesterday and today but usually she usually goes to the bathroom every other day . ALLERGIES: NONE. SOCIAL HISTORY: The patient does not smoke or drink alcohol. PAST MEDICAL HISTORY: 1. Hypertension. 2. Obesity. 3. Chronic acid reflux. 4. Peripheral vascular disease, stent[place] [address] Renteria. 5. UTI in May 2019. 6. heart failure. PAST SURGICAL HISTORY: 1. Hysterectomy. 2. Ectopic . 3. Stent placement in the lower extremities, 2014. FAMILY HISTORY: No family history of any cancer, stroke, heart disease, or lung disease. MEDICATIONS: List reviewed which include aspirin REVIEW OF SYSTEMS: A 10-point system reviewed. CONSTITUTIONAL: No history of any weight loss. No fever or chills. She has poor exercise tolerance and dyspnea. HEAD: No chronic headache. EYES: No impaired vision. EARS: No hearing loss, but however, she has had her ear checked and hearing aid recently. NOSE: No nosebleed. THROAT: No sore throat or dysphagia. LUNGS: History of coughing, mild dyspnea. No hemoptysis. CARDIOVASCULAR SYSTEM: No chest pain. No palpitation. No orthopnea or PND. GASTROINTESTINAL: No symptoms. GENITOURINARY: No dysuria, hematuria, or frequent urination. MUSCULOSKELETAL: History of back pain and pain over lower extremities, especially left leg. PHYSICAL EXAMINATION: GENERAL: She is obese, appears comfortable, in no acute distress. However, she is coughing and she appears mildly short winded. VITAL SIGNS: Her pulse is 90 and blood pressure 140/61. HEENT: Conjunctivae are clear. NECK: Supple. No adenitis or thyromegaly noted. LUNGS: Poor air movement within the chest cavity, most likely from poor inspiratory effort. She is not taking deep breathing. She does have some occasional rhonchi. CARDIOVASCULAR SYSTEM: Normal heart sounds. No murmur heard. ABDOMEN: Soft. Abdomen is nontender. No organomegaly. No masses. Normal bowel sounds. EXTREMITIES: Reveal no edema. LABORATORY DATA: Shows abnormal lab data which includes mostly anemia which is a new onset. Chem-7 is normal. Glucose is 114. Liver function test is normal. BNP is CLINICAL IMPRESSION: 1. An 89-year-old female with multiple admissions over the last few months for various reasons. She had normal CBC in May of 2019. The patient has blood count dropped down significantly from 12.7 to 7.5. No overt bleeding. She had no stool yesterday and today. Anemia appears to be acute in origin. Not taking any anticoagulation. From the history, the patient most likely has upper GI source for anemia than lower GI tract. 2. Hypertension. 3. Peripheral vascular disease with stenting in the past. 4. Chronic acid reflux. 5. Obesity. 6. Chest pain, possible congestive heart failure. PLAN: 1. Obtain stool for occult blood. 2. Possibly EGD on Friday as she appears somewhat clinically unstable at the present time. She is still short winded. I will wait for 24 hours and hopefully plan EGD on Friday. Job ID: [id number]
[2019-09-02] MEDS ORDERED: Magnesium Citrate 300 ML BOT PO SCH (15:45)
[2019-09-02] MEDS: Cyanocobalamin (Vitamin B-12) 1,000 MCG TAB PO SCH (21:42)
--- NOTE | 2019-09-02 23:01 | PRG ---
DATE OF SERVICE: 09/02/2019 SUBJECTIVE: This is an 89-year-old female hospitalized with chest pain and difficulty breathing. The patient was seen by Cardiology and was found to have anemia and Dr. Abreu recommended GI evaluation. The patient had a normal CBC in May 2019. Now, blood count was as low as 7.5. Today it has come to around 8.1. The patient had no history of hematochezia. No melena. The patient is actually doing clinically much better. She appears very comfortable, not short winded. She offers no complaints. PHYSICAL EXAMINATION: GENERAL: She is obese. She is not short winded. VITAL SIGNS: Her vital signs are stable. CARDIOVASCULAR: Normal heart sounds. LUNGS: Clear to auscultation. ABDOMEN: Soft. No organomegaly. No tenderness. No masses. CLINICAL IMPRESSION: Anemia, etiology unclear. I did talk to Ms. Billings about having the EGD. She was explained the procedure in detail. She agreed. I tried to call her daughter, Jim this evening, the phone number given to me was [phone]. There is no voicemail that callers could not leave the voicemail. I was unable to contact her. I will try to contact tomorrow morning with notable procedure and plan. Job ID: [id number]
--- NOTE | 2019-09-02 23:30 | PDOC.HOSPP ---
- Subjective Encounter Date: 09/02/19 Encounter Time: 09:00 Subjective: Patient seen and examined for CP/Anemia. No BM. No CP/SOB or palpitations. No new complaints. No overnight events - Objective Vital Signs & Weight: Vital Signs (12 hours) Temp Pulse Resp BP BP Pulse Ox 09/02/19 23:08 56 L 09/02/19 21:47 56 L 120/57 L 09/02/19 21:44 120/57 L 09/02/19 20:03 98.0 F 55 L 18 116/56 L 100 09/02/19 20:01 16 98 09/02/19 15:22 98.2 F 57 L 16 105/52 L 95 09/02/19 14:46 59 L 161/73 H 09/02/19 13:34 59 L 16 96 09/02/19 11:39 98.5 F 81 17 161/73 H 98 Weight Weight 181 lb 10.574 oz I&O: 09/01/19 09/02/19 09/03/19 06:59 06:59 06:59 Intake Total 240 1740 1320 Output Total 400 200 250 Balance -160 1540 1070 Result Diagrams: 09/03/19 04:41 09/02/19 04:49 EKG Reviewed by me: Yes (SR) Hospitalist ROS - Medication Medications: Active Medications Generic Name Dose Route Start Last Admin Trade Name Freq PRN Reason Stop Dose Admin Albuterol/Ipratropium 3 ml 09/01/19 13:00 09/02/19 20:01 Duoneb NEB 3 ml [id number] TIANA Administration Carvedilol 12.5 mg 08/31/19 21:00 09/02/19 21:44 Coreg PO 12.5 mg BID TIANA Administration Cyanocobalamin 1,000 mcg 09/01/19 21:00 09/02/19 21:42 Vitamin B-12 PO 1,000 mcg HS TIANA Administration Furosemide 20 mg 09/01/19 09:00 09/02/19 21:42 Lasix PO 20 mg BID TIANA Administration Hydralazine HCl 25 mg 08/31/19 21:00 09/02/19 23:08 Apresoline PO Not Given TID TIANA Ferric Sodium Gluconate 120 mls @ 60 mls/hr 09/02/19 09:00 03/12/20 10:11 Complex 250 mg/ Sodium IVPB 120 mls Chloride DAILY TIANA Administration Losartan Potassium 100 mg 09/01/19 09:00 09/02/19 10:10 Cozaar PO 100 mg DAILY TIANA Administration Nitroglycerin 0.4 mg 08/31/19 13:03 09/01/19 07:02 Nitrostat PO 0.4 mg Q5MIN PRN Administration Chest Pain Pantoprazole Sodium 40 mg 09/01/19 21:00 09/02/19 21:43 Protonix PO 40 mg BID TIANA Administration Polyethylene Glycol 17 gm 09/01/19 21:00 09/02/19 21:50 Miralax PO Not Given BID [facility] Potassium Chloride 10 meq 09/01/19 17:00 09/02/19 16:02 Klor-Con 10 PO 10 meq BID-WM [facility] Administration Senna/Docusate Sodium 2 tab 09/01/19 21:00 09/02/19 21:50 Senokot S PO Not Given BID TIANA Tramadol HCl 50 mg 09/01/19 07:57 09/01/19 09:25 Ultram PO 50 mg DAILY PRN Administration Moderate Pain (4-6) Verapamil HCl 180 mg 09/01/19 09:00 09/02/19 10:10 Calan Er PO 180 mg DAILY TIANA Administration Hosp A/P - Plan Chest pain - Prob due to symptomatic anemia Anemia - Hb >12 2 months ago HTN Chronic diastolic HF Obesity BMI 33.2 PVD s/p stent CKD 2 PLAN: Treat constipation IV iron replacement ?EGD Clear liqd diet HH in AM
[2019-09-03 05:12] LABS: Hemoglobin 7.3 g/dL (12.0-16.0)
[2019-09-03] MEDS: Losartan 25 MG TAB PO SCH (08:41)
[2019-09-03] MEDS: hydrALAZINE 25 MG TAB PO SCH ×3 (08:42→20:25)
[2019-09-03] MEDS: Potassium Chloride 10 MEQ TAB PO SCH ×2 (08:42→18:09)
[2019-09-03] MEDS: Carvedilol 6.25 MG TAB PO SCH ×2 (08:42→20:26)
[2019-09-03] MEDS: Polyethylene Glycol 3350 17 GM Packet PO SCH ×2 (08:43→20:25)
[2019-09-03] MEDS: Senokot S 8.6-50 MG TAB PO SCH ×3 (08:43→21:00)
--- NOTE | 2019-09-03 08:51 | PDOC.EVN ---
Event Note - Event Note Event Note: Due to advanced age and multiple comorbiditeis - will transfuse 1 unit PRBC. Hb today 7.3. Was >12 in 06/10.
[2019-09-03] MEDS ORDERED: EPHEDRINE 25 MG/5 ML SYRINGE ONE (10:16)
[2019-09-03] MEDS ORDERED: Lidocaine 1% PF 5 ML VIAL ONE (10:16)
[2019-09-03] MEDS ORDERED: PROPOFOL 200 MG/20 ML VIAL ONE (10:16)
[2019-09-03] MEDS ORDERED: Ondansetron HCl/PF 4 MG/2 ML Vial IVP PRN (11:38)
[2019-09-03] MEDS ORDERED: Promethazine HCl 25 MG/ML VIAL SLOW IVP PRN (11:38)
[2019-09-03] MEDS ORDERED: Promethazine HCl 25 MG/ML VIAL IM PRN (11:38)
[2019-09-03] MEDS: Furosemide 20 MG TAB PO SCH ×2 (13:02→20:33)
--- NOTE | 2019-09-03 15:13 | OP ---
DATE OF PROCEDURE: 09/03/2019 PROCEDURE PERFORMED: 1. Esophagogastroduodenoscopy. 2. Esophagogastroduodenoscopy with 7-Serbian BICAP probe of the gastric and duodenal AVMs. PREOPERATIVE DIAGNOSIS: Anemia, microcytic. POSTOPERATIVE DIAGNOSES: 1. Small hiatus hernia. 2. Distal esophageal ring, nonobstructing. 3. Antral gastritis. 4. Gastric AVM over the gastric antrum, status post 7-Serbian BICAP therapy. 5. 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 In the descending duodenum, no pathology seen. DESCRIPTION OF PROCEDURE: The patient was placed on her left lateral position and was given sedation by Anesthesia Department. A Pentax video gastroscope under direct vision passed down the oropharynx, past the GE junction, into the stomach and subsequently into the descending duodenum. The esophageal mucosa appeared normal. She has distal esophageal ring, nonobstructing. She has a small hiatus hernia. In the fundus and cardia and gastric body, no lesion seen. The gastric antrum shows patchy areas of mucosal edema and erythema. There was a very well-defined large gastric AVM over the gastric antrum. This was nonbleeding. This was cauterized with a 7-Serbian BICAP probe with good hemostasis. The scope was advanced into the duodenal bulb. She had 3 well-defined again AVMs. They were nonbleeding. All the three were cauterized with a 7-Serbian BICAP probe. In the descending duodenum, no lesion seen. The stomach decompressed and the scope removed. RECOMMENDATIONS: 1. Diet as tolerated. 2. Follow up hemoglobin and hematocrit. 3. Transfuse p.r.n. Job ID: [id number]
[2019-09-03] MEDS: Iron, Sodium Ferric Gluconate 250 MG in Sodium Chloride 0.9% 100 ML IVPB SCH (17:53)
[2019-09-03] MEDS: traMADol HCl 50 MG TAB PO PRN (18:09)
[2019-09-03] MEDS: Cyanocobalamin (Vitamin B-12) 1,000 MCG TAB PO SCH (20:25)
--- NOTE | 2019-09-03 20:37 | PDOC.HOSPP ---
- Subjective Encounter Date: 09/03/19 Encounter Time: 09:00 Subjective: Patient seen and examined for CP and Anemia. No CP. Had 2 BMs. Feels gen weak. No other complaints. No overnight events - Objective Vital Signs & Weight: Vital Signs (12 hours) Temp Pulse Pulse Resp BP BP BP 09/03/19 20:26 146/70 H 09/03/19 20:25 62 146/70 H 09/03/19 19:15 59 L 09/03/19 19:09 09/03/19 19:08 09/03/19 17:05 98.3 F 58 L 24 H 152/64 H 09/03/19 16:23 97.7 F 59 L 16 120/58 L 09/03/19 15:02 61 18 09/03/19 13:15 97.5 F L 57 L 20 123/56 L 09/03/19 12:52 98.3 F 53 L 16 127/58 L 09/03/19 12:17 97.6 F 54 L 18 119/54 L 09/03/19 08:40 Pulse Ox 09/03/19 20:26 09/03/19 20:25 09/03/19 19:15 09/03/19 19:09 97 09/03/19 19:08 97 09/03/19 17:05 94 L 09/03/19 16:23 96 09/03/19 15:02 98 09/03/19 13:15 98 09/03/19 12:52 98 09/03/19 12:17 94 L 09/03/19 08:40 100 Weight Weight 181 lb 10.574 oz I&O: 09/02/19 09/03/19 09/04/19 06:59 06:59 06:59 Intake Total 1740 1320 350 Output Total 200 250 Balance 1540 1070 350 Result Diagrams: 09/03/19 04:41 09/02/19 04:49 EKG Reviewed by me: Yes (Tele SR) Hospitalist ROS - Review of Systems Respiratory: denies: cough, dry, shortness of breath, hemoptysis, SOB with excertion, pleuritic pain, sputum, wheezing, other Cardiovascular: denies: chest pain, palpitations, orthopnea, paroxysmal noc. dyspnea, edema, light headedness, other Gastrointestinal: denies: nausea, vomiting, abdominal pain, diarrhea, constipation, melena, hematochezia, other - Medication Medications: Active Medications Generic Name Dose Route Start Last Admin Trade Name Freq PRN Reason Stop Dose Admin Albuterol/Ipratropium 3 ml 09/01/19 13:00 09/03/19 19:08 Duoneb NEB 3 ml [id number] TIANA Administration Carvedilol 12.5 mg 08/31/19 21:00 09/03/19 20:26 Coreg PO 12.5 mg BID TIANA Administration Cyanocobalamin 1,000 mcg 09/01/19 21:00 09/03/19 20:25 Vitamin B-12 PO 1,000 mcg HS TIANA Administration Furosemide 20 mg 09/01/19 09:00 09/03/19 20:33 Lasix PO 20 mg BID TIANA Administration Hydralazine HCl 25 mg 08/31/19 21:00 09/03/19 20:25 Apresoline PO 25 mg TID TIANA Administration Ferric Sodium Gluconate 120 mls @ 60 mls/hr 09/02/19 09:00 09/03/19 17:53 Complex 250 mg/ Sodium IVPB 120 mls Chloride DAILY TIANA Administration Losartan Potassium 100 mg 09/01/19 09:00 09/03/19 08:41 Cozaar PO 100 mg DAILY TIANA Administration Nitroglycerin 0.4 mg 08/31/19 13:03 09/01/19 07:02 Nitrostat PO 0.4 mg Q5MIN PRN Administration Chest Pain Pantoprazole Sodium 40 mg 09/01/19 21:00 09/03/19 20:26 Protonix PO 40 mg BID TIANA Administration Polyethylene Glycol 17 gm 09/01/19 21:00 09/03/19 20:25 Miralax PO Not Given BID T[facility]NA Potassium Chloride 10 meq 09/01/19 17:00 09/03/19 18:09 Klor-Con 10 PO 10 meq BID-WM TIANA Administration Senna/Docusate Sodium 2 tab 09/01/19 21:00 09/03/19 20:26 Senokot S PO Not Given BID TIANA Tramadol HCl 50 mg 09/01/19 07:57 09/03/19 18:09 Ultram PO 50 mg DAILY PRN Administration Moderate Pain (4-6) Verapamil HCl 180 mg 09/01/19 09:00 09/03/19 08:41 Calan Er PO 180 mg DAILY TIANA Administration - Exam General Appearance: NAD Neck: supple, no JVD Heart: RRR, no gallops Respiratory: CTAB, no rales Gastrointestinal: soft, non-distended Extremities: no cyanosis Neurological: no new deficit Hosp A/P - Plan DVT proph w/SCDs Chest pain - Prob due to symptomatic anemia Anemia - Hb >12 2 months ago HTN Chronic diastolic HF Obesity BMI 33.2 PVD s/p stent CKD 2 PLAN: EGD today Due to advanced age and multiple comorbiditeis - will transfuse 1 unit PRBC. Hb today 7.3. Was >12 in 06/10. HH in AM Cont PPI Change to inpt. Not stable for dc Cont other meds as above
[2019-09-04 04:58] LABS: #Eosinphils 0.6 thou/uL (0.0-0.7); #Monocytes 1.8 thou/uL (0.11-0.59); #Neutrophils 7.5 thou/uL (1.40-6.50); %Basophils 0.2 % (0.0-1.0); %Eosinophils 4.9 % (0.0-10.0); %Lymphocytes 17.2 % (21.0-51.0); %Monocytes 14.8 % (0.0-10.0); Hemoglobin 9.4 g/dL (12.0-16.0); Mean Corpuscular HGB CONC 31.9 g/dL (32.0-36.0); Mean Corpuscular Hemoglobin 25.1 pg (27.0-31.0); Mean Corpuscular Volume 78.6 fL (78.0-98.0); Mean Platelet Volume 10.7 fL (7.4-10.4); Platelet Count 268 thou/uL (130-400); RBC Distribution Width 19.5 % (11.5-14.5); Red Blood Cell (RBC) Count 3.73 mill/uL (4.20-5.40); White Blood Cell (WBC) Count 11.9 thou/uL (4.8-10.8)
[2019-09-04] MEDS ORDERED: Furosemide 20 MG/2 ML VIAL SLOW IVP SCH ×2 (07:45→14:00)
[2019-09-04] MEDS ORDERED: Aspirin 81 mg Enteric Coated Tablet PO SCH (09:00)
[2019-09-04] MEDS: hydrALAZINE 25 MG TAB PO SCH ×3 (09:04→19:20)
[2019-09-04] MEDS: Carvedilol 6.25 MG TAB PO SCH (09:04)
[2019-09-04] MEDS: Losartan 25 MG TAB PO SCH (09:04)
[2019-09-04] MEDS: Furosemide 20 MG TAB PO SCH (09:05)
[2019-09-04] MEDS: Potassium Chloride 10 MEQ TAB PO SCH ×2 (09:05→18:08)
[2019-09-04] MEDS: Senokot S 8.6-50 MG TAB PO SCH ×2 (09:05→19:21)
[2019-09-04] MEDS: Polyethylene Glycol 3350 17 GM Packet PO SCH (09:06)
--- NOTE | 2019-09-04 12:25 | PDOC.HOSPP ---
- Subjective Encounter Date: 09/04/19 Encounter Time: 09:45 Subjective: Patient seen and examined for Anemia. Feeling better. No SOB. No new melena. No new complaints. No overnight events - Objective Vital Signs & Weight: Vital Signs (12 hours) Temp Pulse Resp BP BP Pulse Ox 09/04/19 09:04 67 148/60 H 09/04/19 08:00 98.8 F 67 20 148/60 H 96 09/04/19 06:59 77 16 09/04/19 04:00 99.0 F 77 16 153/69 H 95 Weight Weight 181 lb 10.574 oz I&O: 09/03/19 09/04/19 09/05/19 06:59 06:59 06:59 Intake Total 1320 475 Output Total 250 Balance 1070 475 Result Diagrams: 09/04/19 15:56 09/04/19 15:23 EKG Reviewed by me: Yes (Tele SB) Hospitalist ROS - Review of Systems Cardiovascular: denies: chest pain, palpitations, orthopnea, paroxysmal noc. dyspnea, edema, light headedness, other Gastrointestinal: denies: nausea, vomiting, abdominal pain, diarrhea, constipation, melena, hematochezia, other - Medication Medications: Active Medications Generic Name Dose Route Start Last Admin Trade Name Freq PRN Reason Stop Dose Admin Albuterol/Ipratropium 3 ml 09/01/19 13:00 09/04/19 06:59 Duoneb NEB 3 ml [id number] TIANA Administration Aspirin 81 mg 09/04/19 09:00 09/04/19 09:04 Ecotrin PO 81 mg DAILY TIANA Administration Carvedilol 12.5 mg 08/31/19 21:00 09/04/19 09:04 Coreg PO 12.5 mg BID TIANA Administration Cyanocobalamin 1,000 mcg 09/01/19 21:00 09/03/19 20:25 Vitamin B-12 PO 1,000 mcg HS TIANA Administration Furosemide 20 mg 09/01/19 09:00 09/04/19 09:05 Lasix PO 20 mg BID TIANA Administration Hydralazine HCl 25 mg 08/31/19 21:00 09/04/19 09:04 Apresoline PO 25 mg TID TIANA Administration Losartan Potassium 100 mg 09/01/19 09:00 09/04/19 09:04 Cozaar PO 100 mg DAILY TIANA Administration Nitroglycerin 0.4 mg 08/31/19 13:03 09/01/19 07:02 Nitrostat PO 0.4 mg Q5MIN PRN Administration Chest Pain Pantoprazole Sodium 40 mg 09/01/19 21:00 09/04/19 09:04 Protonix PO 40 mg BID TIANA Administration Polyethylene Glycol 17 gm 09/04/19 09:00 09/04/19 09:06 Miralax PO 17 gm DAILY TIANA Administration Potassium Chloride 10 meq 09/01/19 17:00 09/04/19 09:05 Klor-Con 10 PO 10 meq BID-WM TIANA Administration Senna/Docusate Sodium 1 tab 09/03/19 20:39 09/04/19 09:05 Senokot S PO 1 tab BID TIANA Administration Tramadol HCl 50 mg 09/01/19 07:57 09/03/19 18:09 Ultram PO 50 mg DAILY PRN Administration Moderate Pain (4-6) Verapamil HCl 180 mg 09/01/19 09:00 09/04/19 09:06 Calan Er PO 180 mg DAILY TIANA Administration - Exam General Appearance: NAD Heart: RRR, no gallops Respiratory: no wheezes, rhonchi Gastrointestinal: non-tender, non-distended, normal bowel sounds Extremities: no cyanosis Neurological: no new deficit Hosp A/P - Plan DVT proph w/SCDs Chest pain - Prob due to symptomatic anemia Anemia prob due to UGI bleeding from AVMs (POA) s/p 1 unit PRBC HTN Chronic diastolic HF Obesity BMI 33.2 PVD s/p stent CKD 2 PLAN: s/p EGD Cont PPI Cont Lasix AM labs Cont other meds as above Update@1530 Code green called due to significant bradycardia with hypotension. Received Atropine. Transferred to CCU. Cardio/Pulm input appreciated Intubated. CCU orders completed. Family updated. Hold CCB and BB. IV Calcium and Glucagon x 1. Labs reviewed.
[2019-09-04] MEDS ORDERED: Potassium Chloride 10 MEQ TAB PO SCH (12:30)
--- NOTE | 2019-09-04 13:29 | PRG ---
DATE OF SERVICE: 09/04/2019 SUBJECTIVE: Mrs. Billings says she is feeling okay today. She remains on oxygen, but has no shortness of breath. She denies any abdominal pain. She is tolerating her diet. Hemoglobin came up to 9.4 with 1 unit RBC transfusion. OBJECTIVE: VITAL SIGNS: Temperature 98.8, pulse 67, blood pressure 148/60, and 96% oxygen saturation on 2 L nasal cannula. GENERAL: In no acute distress. HEART: Regular rate and rhythm. LUNGS: Clear to auscultation bilaterally. ABDOMEN: Soft. Nontender to palpation. EXTREMITIES: No peripheral edema. LABORATORY STUDIES: Hemoglobin 9.4, WBC 11.9, platelets 268. Sodium 141, potassium 4.0, BUN only 10, creatinine 0.76. Ferritin 22.3. ASSESSMENT AND PLAN: 1. 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 2. Gastric and duodenal arteriovenous malformations, treated with APC by Dr. Quigley yesterday, successfully. The patient is doing well. There is no overt bleeding. AVMs were treated yesterday by Dr. Quigley. It is possible and even likely that the patient has more AVMs throughout the small intestine, which were not reachable endoscopically. Regardless, most patients do well on iron supplementation. GI is going to sign off at this time. Please call back anytime with questions or concerns. Job ID: [id number]
[2019-09-04] MEDS ORDERED: Atropine Sulfate 1 mg/1 ml Vial IVP SCH (14:30)
--- NOTE | 2019-09-04 14:40 | PDOC.CPN ---
- Subjective Date: 09/04/19 Time: 14:39 Interval history: Notified by roadway technician that pulse 44bpm sinus at 1430. Then went junctional. Examined patient and discussed with family. Asymptomatic, but groggy. Family states MS at baseline and nurse confirms. Atropine ordered. Discussed with Dr. Wong who will resume care and stop bblocker. Call back if needed. 1511 - Code Green called. Called back. Patient hypotensive. Monitor shows JR to SR 46-48bpm. SBP dropped to 70s. Patient symptomatic from MS. SOB. No CP. Labs pending. Second atropine given. Pacer pads applied. Dopamine gtt started. Transferred to ICU and back to care of Dr. Wong. Dr. Chamorro called and notified at 1523 - Objective Allergies/Adverse Reactions: Allergies Allergy/AdvReac Type Severity Reaction Status Date / Time No Known Allergies Allergy Verified 08/31/19 17:00 Visit Medications: Current Medications Acetaminophen (Tylenol) 650 mg PO Q4H PRN PRN Reason: Mild Pain (1-3) Albuterol/Ipratropium (Duoneb) 3 ml NEB [id number] [facility] Last Admin: 09/04/19 06:59 Dose: 3 ml Albuterol/Ipratropium (Duoneb) 3 ml NEB [id number] PRN PRN Reason: SOB &/or Wheezing Aspirin (Ecotrin) [address] [facility] Last Admin: 09/04/19 09:04 Dose: 81 mg Atropine Sulfate (Atropine) 0.[address] [facility] Stop: 09/04/19 16:30 Bisacodyl (Dulcolax) 5 mg PO Q12H PRN PRN Reason: Constipation Carvedilol (Coreg) 12.[address] [facility] Last Admin: 09/04/19 09:04 Dose: 12.5 mg Cyanocobalamin (Vitamin B-12) 1,[address] [facility] Last Admin: 09/03/19 20:25 Dose: 1,000 mcg Furosemide (Lasix) 20 mg SLOW IVP 0600,1400 [facility] Hydralazine HCl (Apresoline) [address] [facility] Last Admin: 09/04/19 09:04 Dose: 25 mg Losartan Potassium (Cozaar) [address] [facility] Last Admin: 09/04/19 09:04 Dose: 100 mg Magnesium Hydroxide (Milk Of Magnesium) 30 ml PO Q12H PRN PRN Reason: Constipation Nitroglycerin (Nitrostat) 0.4 mg PO Q5MIN PRN PRN Reason: Chest Pain Last Admin: 09/01/19 07:02 Dose: 0.4 mg Ondansetron HCl (Zofran Odt) 4 mg PO Q6H PRN PRN Reason: Nausea/Vomiting Pantoprazole Sodium (Protonix) [address] [facility] Last Admin: 09/04/19 09:04 Dose: 40 mg Polyethylene Glycol (Miralax) [address] [facility] Last Admin: 09/04/19 09:06 Dose: 17 gm Potassium Chloride (Klor-Con 10) 10 meq PO BID-[facility] Last Admin: 09/04/19 09:05 Dose: 10 meq Potassium Chloride (Klor-Con 10) [address] [facility] Stop: 09/04/19 15:00 Senna/Docusate Sodium (Senokot S) [address] [facility] Last Admin: 09/04/19 09:05 Dose: 1 tab Sodium Chloride (Flush - Normal Saline) 10 ml IVF PRN PRN PRN Reason: Saline Flush Tramadol HCl (Ultram) 50 mg PO DAILY PRN PRN Reason: Moderate Pain (4-6) Last Admin: 09/03/19 18:09 Dose: 50 mg Verapamil HCl (Calan Er) [address] [facility] Last Admin: 09/04/19 09:06 Dose: 180 mg Vital Signs & Weight: Vital Signs Temp Pulse Resp BP BP Pulse Ox 09/04/19 09:04 67 148/60 H 09/04/19 08:00 98.8 F 67 20 148/60 H 96 09/04/19 06:59 77 16 09/04/19 04:00 99.0 F 77 16 153/69 H 95 Weight 181 lb 10.574 oz - Labs Result Diagrams: 09/04/19 04:37 09/04/19 15:23 Troponin/CKMB Troponin I 0.024 ng/mL (< 0.028) 09/01/19 08:17
[2019-09-04] MEDS ORDERED: Atropine Sulfate 1 mg/1 ml Vial IVP PRN (15:13)
[2019-09-04] MEDS ORDERED: Lorazepam 2 MG/ML VIAL ONE (15:40)
[2019-09-04] MEDS ORDERED: Propofol 1,000 MG/100 ML VIAL IV ONE (15:42)
[2019-09-04 15:49] LABS: Anion Gap 16 mmol/L (10-20); BUN (Urea Nitrogen) 18 mg/dL (9.8-20.1); CK (CPK) 100 U/L (29-168); Calc. Creatinine Clearance 20 mL/min (70-130); Calcium 8.7 mg/dL (7.8-10.44); Carbon Dioxide 21 mmol/L (23-31); Chloride 107 mmol/L (98-107); Estimated GFR-MDRD 21; Glucose 139 mg/dL (83-110); Magnesium 2.6 mg/dL (1.6-2.6); Potassium 5.3 mmol/L (3.5-5.1); Sodium 139 mmol/L (136-145)
[2019-09-04 15:52] LABS: CKMB 0.5 ng/mL (0-6.6); Troponin I 0.018 ng/mL (< 0.028)
[2019-09-04] MEDS ORDERED: Ondansetron PF 4 MG/2 ML Vial IVP PRN (15:57)
[2019-09-04] MEDS ORDERED: hydrALAZINE 20 MG/ML VIAL SLOW IVP PRN (16:13)
[2019-09-04] MEDS ORDERED: D5 1/2 NS w/20 mEq KCL 1,000 ML IV SCH (16:15)
[2019-09-04 16:28] LABS: Anisocytosis SLIGHT = 6-15 cells (100X) (0-5/hpf); Band 4 % (5-11); Eosinophils 2 % (0-10); Hemoglobin 9.5 g/dL (12.0-16.0); Hypochromia SLIGHT = 6-15 cells (100X) (0-5/hpf); Lymphocytes 18 % (21-51); MDiff Complete? YES; Mean Corpuscular HGB CONC 31.1 g/dL (32.0-36.0); Mean Corpuscular Hemoglobin 24.8 pg (27.0-31.0); Mean Corpuscular Volume 79.8 fL (78.0-98.0); Mean Platelet Volume 10.2 fL (7.4-10.4); Monocytes 11 % (0-10); Neutrophil 63 % (42-75); Nucleated RBC 2 % (0); Platelet Count 263 thou/uL (130-400); Platelet Morphology Comment Appears Adequate; Polychromasia MODERATE = 3-4 cells (100X) (0-2/hpf); RBC Distribution Width 19.7 % (11.5-14.5); Reactive Lymphocytes 2 % (0-10); Red Blood Cell (RBC) Count 3.81 mill/uL (4.20-5.40); Target Cells SLIGHT = 2-5 cells (100X) (0-1/hpf); White Blood Cell (WBC) Count 11.3 thou/uL (4.8-10.8)
[2019-09-04] MEDS ORDERED: Calcium Gluconate 4.6 MEQ in Sodium Chloride 0.9% 100 ML IVPB SCH (16:30)
[2019-09-04] MEDS: Dextrose 5 %-0.45 % NaCl 1,000 ML IV SCH ×2 (16:31→22:57)
[2019-09-04] MEDS ORDERED: fentaNYL Citrate/PF 2,000 MCG in Sodium Chloride 0.9% 60 ML IV SCH (16:39)
[2019-09-04] MEDS ORDERED: Propofol BOLUS 1,000 MG/100 ML VIAL IV PRN (16:39)
[2019-09-04] MEDS ORDERED: Fentanyl BOLUS 250 ML IVPB PRN (16:39)
[2019-09-04] MEDS ORDERED: Lorazepam 2 MG/ML VIAL SLOW IVP PRN (16:39)
[2019-09-04] MEDS ORDERED: DISCONTINUE PREVIOUS NARCOTIC PAIN MEDICATIONS AND BENZODIAZEPINES FS SCH (16:39)
[2019-09-04] MEDS ORDERED: DOPamine 400 MG/D5W 250 ML 250 ML IVPB SCH (16:45)
[2019-09-04 16:59] LABS: Actual Bicarbonate (HCO3a) 22.4 mEq/L (22-28); Base Excess (BEa) -2.2 mEq/L (-2.0 to +3.0); Calcium, Ionized 1.18 mmol/L (1.12-1.30); Carboxyhemoglobin (COHb) 1.3 gm% (0.0-3.0); Hemoglobin (Hb) 9.8 g/dL (12.0-16.0); Potassium - ABG Lab 4.67 mmol/L (3.70-5.30); pH, Arterial 7.39 (7.35-7.45)
[2019-09-04 17:02] LABS: O2 Tension (PaO2) 51.1 mmHg (> 60.0); Puncture Site RBRACH
[2019-09-04] MEDS ORDERED: methylPREDNISolone Sod Succ/PF 125 MG/2 ML VIAL IVP SCH (17:15)
--- NOTE | 2019-09-04 17:16 | RAD ---
Portable frontal chest radiograph: 09/04/2019 COMPARISON: 08/31/2019 HISTORY: Ventilated patient FINDINGS: Endotracheal tube and nasogastric tube are now present, in proper position. There is promin ence of the cardiac silhouette. Pulmonary vascular congestion as well as perihilar and bibasilar interstitial prominence has worsened since the prior exam. There is increased density in both lung ba ses suggesting a combination of mild airspace disease and bilateral pleural effusions. There is atherosclerotic calcification of the aortic arch but IMPRESSION: Findings suggesting interval worsening of pulmonary edema and/or infectious pneumonitis. Recommend follow-up imaging following treatment to document resolution.
[2019-09-04 17:34] LABS: Bilirubin Negative (Negative); Blood, Urine Large (Negative); Glucose, Urine (Dipstick) Negative (Negative); Leukocyte Large (Negative); Nitrite Negative (Negative); Protein, Urine (Dipstick) > or equal to 300 mg/dL (Neg-Trace); Urobilinogen 0.2 mg/dL (Less than 2)
[2019-09-04 17:35] LABS: Clarity Turbid (Clear)
[2019-09-04 17:41] LABS: Bacteria/HPF 4+ HPF (None Seen); Renal Epithelial 0-3 HPF (None Seen); Squamous Epithelial 0-3 HPF (0-3); WBC/HPF Greater Than 50 HPF (0-3)
[2019-09-04 17:42] LABS: Urine Culture Reflex Yes Yes
[2019-09-04] MEDS: Cyanocobalamin (Vitamin B-12) 1,000 MCG TAB PO SCH (19:20)
--- NOTE | 2019-09-04 19:30 | CON ---
DATE OF CONSULTATION: REASON FOR CONSULTATION: Bradycardia, hypotension, and respiratory arrest. HISTORY OF PRESENT ILLNESS: Ms. Billings is an 89-year-old woman, who was seen evaluated by Dr. Barak Abreu recently. She was seen for anemia in addition to elevated troponin and renal insufficiency. The patient was felt to be stabilized. An outpatient workup to ensue. Ms. Billings was being set up for discharge today. She developed significant bradycardia, required atropine. She responded but continued to be hypotensive. She was then transferred to the ICU. While in the ICU, she became unresponsive. Dr. López was present and intubated the patient. She has so far ruled out by CK troponin. Prior to this episode, she has not complained of chest pain, pressure, or associated symptoms. She has been on carvedilol 12.5 mg p.o. b.i.d. in the past. She is currently on dopamine with blood pressure and heart rate stable. PAST MEDICAL HISTORY: Please see Dr. Barak Abreu's note dated 09/01/2019. PHYSICAL EXAMINATION: GENERAL: She is currently intubated, sedated. VITAL SIGNS: Blood pressure 114/54, pulse 74, respirations 20. NEUROLOGIC: The patient is alert and oriented x3 with no focal neurologic deficits. HEENT: Sclerae without icterus. Mouth has moist mucous membranes with normal pallor. NECK: No JVD. Carotid upstroke brisk. No bruits bilaterally. LUNGS: Clear to auscultation with unlabored respirations. BACK: No scoliosis or kyphosis. CARDIAC: Regular rate and rhythm with normal S1 and S2. No S3 or S4 noted. No significant rubs, murmurs, thrills, or gallops noted throughout the precordium. PMI is not displaced. There is no parasternal heave. ABDOMEN: Soft, nontender, nondistended. No peritoneal signs present. No hepatosplenomegaly. No abnormal striae. EXTREMITIES: 2+ femoral and 2+ dorsalis pedis pulses. No cyanosis, clubbing, or edema. SKIN: No gross abnormalities. PERTINENT LABORATORY DATA: Creatinine 2.57, which is up from 0.76, potassium 5.3, CO2 21. Troponin negative. Chest x-ray consistent with worsening pulmonary edema versus pneumonitis. BNP of 208 dated 08/31/2019. Echo Doppler dated 07/30/2019 with LVEF of 60% to 65%. IMPRESSION: 1. Bradycardia. 2. Hypertension. 3. Respiratory failure. RECOMMENDATIONS: We will continue to watch Ms. Billings closely. We will discontinue Coreg. Continue dopamine for blood pressure and heart rate management. Continue to rule out by CK troponins. Recommend repeating echo. We will need IV fluids given increasing creatinine. She is likely volume depleted. I did spend 35 minutes of critical care time to discuss the case with Dr. Aryan López, in addition to Cristina Mercado at bedside. Job ID: [id number]
--- NOTE | 2019-09-04 19:34 | PDOC.EVN ---
Event Note - Event Note Event Note: Notified by RN, patient with medina placed today and noted to have thick foul smelling urine, pus-like in appearance. UA showed leukocyte esterase, WBC, RBC, 4+ bacteria. Will start Rocephin. UCx pending.
[2019-09-04] MEDS: cefTRIAXone\\ROCEPHIN 2 GM in Sodium Chloride 0.9% 100 ML IVPB SCH (20:26)
[2019-09-05] MEDS: Propofol 1,000 MG/100 ML VIAL IV PRN ×2 (00:46→19:55)
[2019-09-05 04:41] LABS: ALT (SGPT) 11 U/L (8-55); AST (SGOT) 21 U/L (5-34); Albumin 3.2 g/dL (3.4-4.8); Alkaline Phosphatase 93 U/L (40-110); Anion Gap 16 mmol/L (10-20); BUN (Urea Nitrogen) 20 mg/dL (9.8-20.1); Bilirubin, Total 0.5 mg/dL (0.2-1.2); Calc. Creatinine Clearance 19 mL/min (70-130); Calcium 9.1 mg/dL (7.8-10.44); Carbon Dioxide 19 mmol/L (23-31); Chloride 104 mmol/L (98-107); Estimated GFR-MDRD 20; Globulin 3.2 g/dL (2.4-3.5); Glucose 226 mg/dL (83-110); Magnesium 2.4 mg/dL (1.6-2.6); Potassium 4.7 mmol/L (3.5-5.1); Protein, Total 6.4 g/dL (6.0-8.3); Sodium 134 mmol/L (136-145)
[2019-09-05 05:08] LABS: Anisocytosis MODERATE=16-30 cells (100X) (0-5/hpf); Band 7 % (5-11); Eosinophils 1 % (0-10); Hypochromia SLIGHT = 6-15 cells (100X) (0-5/hpf); Large Platelets SLIGHT; Lymphocytes 10 % (21-51); MDiff Complete? YES; Mean Corpuscular HGB CONC 31.7 g/dL (32.0-36.0); Mean Corpuscular Hemoglobin 25.1 pg (27.0-31.0); Mean Corpuscular Volume 79.2 fL (78.0-98.0); Mean Platelet Volume 10.8 fL (7.4-10.4); Monocytes 4 % (0-10); Neutrophil 78 % (42-75); Platelet Count 272 thou/uL (130-400); Platelet Morphology Comment Appears Adequate; Polychromasia SLIGHT = 2-3 cells (100X) (0-2/hpf); RBC Distribution Width 20.4 % (11.5-14.5); Red Blood Cell (RBC) Count 3.97 mill/uL (4.20-5.40); Target Cells SLIGHT = 2-5 cells (100X) (0-1/hpf); White Blood Cell (WBC) Count 10.6 thou/uL (4.8-10.8)
[2019-09-05 07:00] LABS: Actual Bicarbonate (HCO3a) 20.1 mEq/L (22-28); Base Excess (BEa) -3.2 mEq/L (-2.0 to +3.0); CO2 Tension 30.1 mmHg (35.0-45.0); Carboxyhemoglobin (COHb) 0.5 gm% (0.0-3.0); Hemoglobin (Hb) 10.5 g/dL (12.0-16.0); O2 Tension (PaO2) 182.3 mmHg (> 60.0); Potassium - ABG Lab 4.37 mmol/L (3.70-5.30); pH, Arterial 7.44 (7.35-7.45)
[2019-09-05 07:01] LABS: ALV-art Gradient 207.875 (0-20); Analyzer IN Cardio OR; Puncture Site RRAD
--- NOTE | 2019-09-05 07:51 | RAD ---
Chest one view HISTORY: Intubated. Dyspnea. Follow-up. COMPARISON: 09/04/2019. FINDINGS: Cardiac silhouette is magnified and enlarged. Pulmonary vasculature remains engorged. Wides pread reticulonodular interstitial prominence is again demonstrated, similar to the previous study. Multifocal infiltrate at the right posterior lung base is stable. Mediastinum is midline with aortic calcification. Lines and tubes appear unchanged in position. No ev idence of pneumothorax. IMPRESSION: Pulmonary edema, right lower lobe infiltrate, and other findings are stable.
--- NOTE | 2019-09-05 07:55 | PDOC.CPN ---
- Subjective Date: 09/05/19 Time: 10:19 Interval history: Pt intubated sedated. Of dopamine. On Abx. No current pressors. - Objective Allergies/Adverse Reactions: Allergies Allergy/AdvReac Type Severity Reaction Status Date / Time No Known Allergies Allergy Verified 08/31/19 17:00 Visit Medications: Current Medications Acetaminophen (Tylenol) 650 mg PO Q4H PRN PRN Reason: Mild Pain (1-3) Albuterol/Ipratropium (Duoneb) 3 ml NEB [id number] PRN PRN Reason: SOB &/or Wheezing Albuterol/Ipratropium (Duoneb) 3 ml NEB [id number] TIANA Last Admin: 09/05/19 07:49 Dose: 3 ml Aspirin (Ecotrin) 81 mg PER TUBE DAILY TIANA Atropine Sulfate (Atropine) 0.5 mg IVP ASDIR PRN PRN Reason: Sustained Bradycardia HR < 30 Bisacodyl (Dulcolax) 5 mg PO Q12H PRN PRN Reason: Constipation Cyanocobalamin (Vitamin B-12) 1,000 mcg PO HS TIANA Last Admin: 09/04/19 19:20 Dose: Not Given Hydralazine HCl (Apresoline) 25 mg PO TID TIANA Last Admin: 09/04/19 19:20 Dose: Not Given Hydralazine HCl (Apresoline) 10 mg SLOW IVP Q4H PRN PRN Reason: SBP Greater Than 180 Dextrose/Sodium Chloride (D5 1/2 Ns) 1,000 mls @ 125 mls/hr IV .Q8H TIANA Last Admin: 09/04/19 22:57 Dose: 1,000 mls Fentanyl Citrate 2,000 mcg/ (Sodium Chloride) 100 mls @ 0 mls/hr IV INF TIANA; Protocol Stop: 10/04/19 16:39 Fentanyl Citrate (Fentanyl Bolus) 250 mls @ 0 mls/hr IVPB PRN PRN PRN Reason: Breakthrough pain/agitation Stop: 10/04/19 16:39 Dopamine HCl/Dextrose (Dopamine 400 Mg/D5w 250 Ml) 250 mls @ 0 mls/hr IVPB INF TIANA; Protocol Ceftriaxone Sodium 2 gm/ (Sodium Chloride) 100 mls @ 200 mls/hr IVPB Q24HR TIANA Last Admin: 09/04/19 20:26 Dose: 100 mls Lorazepam (Ativan) 2 mg SLOW IVP Q1H PRN PRN Reason: Breakthrough agitation Stop: 10/04/19 16:39 Magnesium Hydroxide (Milk Of Magnesium) 30 ml PO Q12H PRN PRN Reason: Constipation Morphine Sulfate (Morphine) 2 mg SLOW IVP Q1H PRN PRN Reason: BREAKTHROUGH PAIN/Agitation Stop: 10/04/19 16:39 Nitroglycerin (Nitrostat) 0.4 mg PO Q5MIN PRN PRN Reason: Chest Pain Last Admin: 09/01/19 07:02 Dose: 0.4 mg Discontinue Previous Narcotic Pain Medications And Benzodiazepines 1 each FS .[facility] Stop: 10/04/19 16:39 Ondansetron HCl (Zofran Odt) 4 mg PO Q6H PRN PRN Reason: Nausea/Vomiting Ondansetron HCl (Zofran) 4 mg IVP Q6H PRN PRN Reason: Nausea/Vomiting Pantoprazole Sodium (Protonix) 40 mg IVP DAILY [facility] Polyethylene Glycol (Miralax) 17 gm PO DAILY [facility] Last Admin: 09/04/19 09:06 Dose: 17 gm Potassium Chloride (Klor-Con 10) 10 meq PO BID-[facility] Last Admin: 09/04/19 18:08 Dose: Not Given Propofol (Diprivan) 1,000 mg IV INF PRN; Protocol PRN Reason: TO ACHIEVE GOAL RASS Stop: 10/04/19 16:39 Last Admin: 09/05/19 00:46 Dose: 1,000 mg Propofol (Diprivan Bolus) 20 mg IV Q5MIN PRN PRN Reason: BREAKTHROUGH AGITATION Stop: 10/04/19 16:39 Senna/Docusate Sodium (Senokot S) 1 tab PO BID [facility] Last Admin: 09/04/19 19:21 Dose: Not Given Sodium Chloride (Flush - Normal Saline) 10 ml IVF PRN PRN PRN Reason: Saline Flush Vital Signs & Weight: Vital Signs Temp Pulse Resp Pulse Ox 09/05/19 07:50 75 09/05/19 07:49 75 18 100 09/05/19 06:00 16 09/05/19 04:00 99.0 F 14 09/05/19 02:46 65 14 100 09/05/19 02:00 16 09/05/19 00:00 98.7 F 14 09/04/19 22:30 61 14 100 09/04/19 22:00 16 09/04/19 20:00 98.6 F 16 100 Weight 190 lb 0.615 oz - Physical Exam General: no apparent distress Neck: no masses, no bruit Cardiac: no murmur, regular rate, regular rhythm Lungs: normal exam, no wheeze, rales, rhonchi, no wheezes - Labs Result Diagrams: 09/05/19 03:21 09/05/19 03:21 Troponin/CKMB CK-MB (CK-2) 0.5 ng/mL (0-6.6) 09/04/19 15:23 Troponin I Less than 0.010 ng/mL (< 0.028) 09/04/19 18:22 - Assessment/Plan Assessment/Plan: Repiratory failure UTI anemia Elevated troponin CHF CP HTN PVD Renal insufficiency Abx for UTI Vent per Dr. stephanie López Troponin (-) Fluids fro renal function Recheck troponin this am order echo (no echo during this hospitalization)
[2019-09-05] MEDS: Potassium Chloride 10 MEQ TAB PO SCH (08:31)
[2019-09-05] MEDS: Polyethylene Glycol 3350 17 GM Packet PO SCH (08:33)
[2019-09-05] MEDS: Pantoprazole 40 MG VIAL IVP SCH (08:33)
[2019-09-05] MEDS: hydrALAZINE 25 MG TAB PO SCH ×3 (08:33→19:56)
[2019-09-05] MEDS: Senokot S 8.6-50 MG TAB PO SCH ×2 (08:34→19:56)
[2019-09-05] MEDS: Dextrose 5 %-0.45 % NaCl 1,000 ML IV SCH (08:35)
[2019-09-05] MEDS ORDERED: Aspirin 81 mg Enteric Coated Tablet PER TUBE SCH (09:00)
[2019-09-05 09:28] LABS: Troponin I 0.014 ng/mL (< 0.028)
--- NOTE | 2019-09-05 13:16 | ULT ---
Renal sonogram HISTORY: Renal insufficiency. FINDINGS: The right kidney measures up to 10.4 cm length and the left 12.1 cm. Each has a normal sono graphic appearance without evidence of mass, stone, or hydronephrosis. Urinary bladder is decompressed by a Bowen catheter. IMPRESSION: No evidence of urinary tract obstruction or other acute abnormality.
[2019-09-05] MEDS ORDERED: Dextrose 5 %-0.45 % NaCl 1,000 ML IV SCH (13:30)
--- NOTE | 2019-09-05 14:39 | PDOC.HOSPP ---
- Subjective Encounter Date: 09/05/19 Encounter Time: 14:00 Subjective: Patient seen and examined for Resp failure. On Vent. Off Dopamine. Overnight events noted. - Objective Vital Signs & Weight: Vital Signs (12 hours) Temp Pulse Resp BP Pulse Ox 09/05/19 14:15 79 09/05/19 14:14 79 16 100 09/05/19 14:00 14 09/05/19 12:00 14 09/05/19 10:54 79 09/05/19 10:53 78 15 100 09/05/19 10:00 14 09/05/19 08:33 75 171/92 H 09/05/19 08:00 20 09/05/19 07:50 75 09/05/19 07:49 75 18 100 09/05/19 07:00 98.9 F 09/05/19 06:00 16 09/05/19 04:00 99.0 F 14 09/05/19 02:46 65 14 100 Weight Weight 190 lb 0.615 oz Most Recent Monitor Data Heart Rate from ECG 79 NIBP 147/74 NIBP BP-Mean 98 Respiration from ECG 14 SpO2 100 I&O: 09/04/19 09/05/19 09/06/19 06:59 06:59 06:59 Intake Total 475 2123.0 Output Total 607 190 Balance 475 1516.0 -190 Result Diagrams: 09/05/19 03:21 09/05/19 03:21 Additional Labs: Accuchecks 09/05/19 09/04/19 09/04/19 11:55 23:54 18:22 POC Glucose 163 H 218 H 235 H 09/04/19 15:18 POC Glucose 138 H Radiology Reviewed by me: Yes (CXR - ?infiltrate/edema) EKG Reviewed by me: Yes (Tele SR) Hospitalist ROS - Review of Systems ROS unobtainable: due to mental status - Medication Medications: Active Medications Generic Name Dose Route Start Last Admin Trade Name Freq PRN Reason Stop Dose Admin Albuterol/Ipratropium 3 ml 09/04/19 18:30 09/05/19 14:14 Duoneb NEB 3 ml [id number] TIANA Administration Cyanocobalamin 1,000 mcg 09/01/19 21:00 09/04/19 19:20 Vitamin B-12 PO Not Given HS TIANA Hydralazine HCl 25 mg 08/31/19 21:00 09/05/19 08:33 Apresoline PO 25 mg TID TIANA Administration Ceftriaxone Sodium 2 gm/ 100 mls @ 200 mls/hr 09/04/19 20:00 09/04/19 20:26 Sodium Chloride IVPB 100 mls Q24HR TIANA Administration Nitroglycerin 0.4 mg 08/31/19 13:03 09/01/19 07:02 Nitrostat PO 0.4 mg Q5MIN PRN Administration Chest Pain Pantoprazole Sodium 40 mg 09/05/19 09:00 09/05/19 08:33 Protonix IVP 40 mg DAILY TIANA Administration Polyethylene Glycol 17 gm 09/04/19 09:00 09/05/19 08:33 Miralax PO 17 gm DAILY TIANA Administration Potassium Chloride 10 meq 09/01/19 17:00 09/05/19 08:31 Klor-Con 10 PO 10 meq BID-WM TIANA Administration Propofol 1,000 mg 09/04/19 16:39 09/05/19 00:46 Diprivan IV 10/04/19 16:39 1,000 mg INF PRN Administration TO ACHIEVE GOAL RASS Protocol Senna/Docusate Sodium 1 tab 09/03/19 20:39 09/05/19 08:34 Senokot S PO 1 tab BID TIANA Administration - Exam General Appearance: NAD General - other findings: on Vent Heart: RRR, no gallops, no rubs, normal peripheral pulses Respiratory: no wheezes, normal chest expansion, rales, rhonchi Gastrointestinal: soft, no bruit, no guarding, no rigidity Extremities: no cyanosis, no clubbing Psychiatric - other findings: Neuro/Psych - cannot assess due to sedation Hosp A/P - Plan DVT proph w/heparin, DVT proph w/SCDs Acute hypoxic resp failure - intubated 09/03 UTI 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
[2019-09-05] MEDS: Heparin 5,000 UNITS/ML VIAL SC SCH (19:56)
[2019-09-05] MEDS: cefTRIAXone\\ROCEPHIN 2 GM in Sodium Chloride 0.9% 100 ML IVPB SCH (19:56)
[2019-09-05] MEDS: Cyanocobalamin (Vitamin B-12) 1,000 MCG TAB PO SCH (19:57)
[2019-09-06] MEDS: Propofol 1,000 MG/100 ML VIAL IV PRN ×4 (02:45→23:03)
[2019-09-06] MEDS: hydrALAZINE 20 MG/ML VIAL SLOW IVP PRN (03:56)
[2019-09-06 04:40] LABS: ALT (SGPT) 14 U/L (8-55); AST (SGOT) 19 U/L (5-34); Albumin 3.2 g/dL (3.4-4.8); Alkaline Phosphatase 91 U/L (40-110); Anion Gap 16 mmol/L (10-20); BUN (Urea Nitrogen) 24 mg/dL (9.8-20.1); Bilirubin, Total 0.3 mg/dL (0.2-1.2); Calc. Creatinine Clearance 22 mL/min (70-130); Carbon Dioxide 21 mmol/L (23-31); Chloride 103 mmol/L (98-107); Estimated GFR-MDRD 22; Glucose 121 mg/dL (83-110); Potassium 4.8 mmol/L (3.5-5.1); Protein, Total 6.2 g/dL (6.0-8.3); Sodium 135 mmol/L (136-145)
[2019-09-06 07:16] LABS: Base Excess (BEa) 1.6 mEq/L (-2.0 to +3.0); CO2 Tension 34.6 mmHg (35.0-45.0); Calcium, Ionized 1.21 mmol/L (1.12-1.30); Carboxyhemoglobin (COHb) 0.8 gm% (0.0-3.0); Hemoglobin (Hb) 10.6 g/dL (12.0-16.0); O2 Tension (PaO2) 114.7 mmHg (> 60.0); Potassium - ABG Lab 4.57 mmol/L (3.70-5.30); pH, Arterial 7.48 (7.35-7.45)
[2019-09-06 07:18] LABS: Puncture Site RB
--- NOTE | 2019-09-06 07:32 | RAD ---
EXAM: Single view of the chest HISTORY: Respiratory failure COMPARISON: 09/05/2019 FINDINGS: Single view of the chest shows a normal sized cardiomediastinal silhouette. The endotrache al tube and NG tube are unchanged in position. There is a subtle veil like opacity in the left thorax which may represent a layering pleural effusion. The bones are unremarkable. IMPRESSION: Small left pleural effusion
[2019-09-06 07:44] LABS: Anisocytosis MODERATE=16-30 cells (100X) (0-5/hpf); Band 4 % (5-11); Burr Cells SLIGHT = 2-5 cells (100X) (0-1/hpf); Hemoglobin 9.3 g/dL (12.0-16.0); Lymphocytes 13 % (21-51); MDiff Complete? YES; Mean Corpuscular HGB CONC 29.6 g/dL (32.0-36.0); Mean Corpuscular Hemoglobin 23.6 pg (27.0-31.0); Mean Corpuscular Volume 79.8 fL (78.0-98.0); Mean Platelet Volume 8.4 fL (7.4-10.4); Metamyelocyte 1 % (0-0); Monocytes 11 % (0-10); Neutrophil 71 % (42-75); Platelet Count 123 thou/uL (130-400); Platelet Morphology Comment Appears Decreased; Polychromasia SLIGHT = 2-3 cells (100X) (0-2/hpf); Red Blood Cell (RBC) Count 3.95 mill/uL (4.20-5.40); White Blood Cell (WBC) Count 12.8 thou/uL (4.8-10.8)
[2019-09-06] MEDS: hydrALAZINE 25 MG TAB PO SCH ×3 (08:33→20:31)
[2019-09-06] MEDS: Aspirin Chewable 81 MG TAB PER TUBE SCH (08:33)
[2019-09-06] MEDS: Heparin 5,000 UNITS/ML VIAL SC SCH ×2 (08:36→20:31)
[2019-09-06] MEDS: Polyethylene Glycol 3350 17 GM Packet PO SCH (08:37)
[2019-09-06] MEDS: Senokot S 8.6-50 MG TAB PO SCH ×2 (08:37→20:32)
[2019-09-06] MEDS: Pantoprazole 40 MG VIAL IVP SCH (08:37)
--- NOTE | 2019-09-06 08:41 | CON ---
DATE OF CONSULTATION: 09/05/2019 HISTORY OF PRESENT ILLNESS: Ms. Billings is an 89-year-old female. Paulino bruner called. She was transferred to critical care unit, became less and less responsive. I was consulted to her bedside. PAST MEDICAL HISTORY: 1. Hypertension. 2. Diastolic heart failure. 3. History of peripheral vascular disease. PAST SURGICAL HISTORY: 1. Peripheral vascular stent. 2. Hysterectomy. SOCIAL HISTORY: Nonsmoker and nondrinker. REVIEW OF SYSTEMS: Negative. ALLERGIES: SHE HAS NO REPORTED DRUG ALLERGIES. PHYSICAL EXAMINATION: GENERAL: She was poorly responsive. VITAL SIGNS: Blood pressure 130, heart rate 50s. EYES: Sclerae anicteric. NECK: Supple. She would not open her mouth. LUNGS: Remarkable for equal breath sounds. HEART: Regular rhythm. ABDOMEN: Soft. There is no guarding. EXTREMITIES: Without asymmetry. PLAN: I recommended immediate intubation for respiratory failure. The etiology at the time of consultation was unclear . CRITICAL CARE TIME: 30 minutes. Job ID: [id number] MTDD
--- NOTE | 2019-09-06 10:06 | PRG ---
DATE OF SERVICE: 09/06/2019 Ms. Billings is clinically improving. OBJECTIVE: VITAL SIGNS: Heart rate is in 70s, blood pressure 161/82, respiratory rate in the teens, oximetry is 100%. LUNGS: Clear. HEART: Regular rhythm. ABDOMEN: Soft. LABORATORY DATA: White count 12.8, hemoglobin 9.3, platelets 123. Sodium 135, potassium 4.8, chloride 103, bicarb 29, BUN 24, creatinine 2.46, pH 7.48, CO2 of 34, PO2 of 114. Rate in her PEEP have been turned down today. IMPRESSION: Respiratory failure secondary to pulmonary edema. Chest radiograph reviewed by me is improved compared to 2 days ago. Hopefully, she will be a candidate for weaning and extubation after spontaneous breathing trial first thing in the morning. Job ID: [id number]
--- NOTE | 2019-09-06 10:36 | PRG ---
DATE OF SERVICE: 09/05/2019 SUBJECTIVE: Ms. Billings opens her eyes. She moves all 4 extremities spontaneously. OBJECTIVE: VITAL SIGNS: Heart rate is in the 70s, respiratory 14, blood pressure 147/74. LUNGS: Equal breath sounds. HEART: Regular rhythm. ABDOMEN: Soft and nontender. EXTREMITIES: No clubbing, cyanosis or edema. LABORATORY DATA: White count 10.6, hemoglobin 10, platelets 272. Sodium 134, potassium 4.7, chloride 104, bicarb 19, creatinine 2.72, glucose 226. IMPRESSION: 1. Respiratory failure secondary to volume overload. 2. Diastolic heart failure. Chest radiograph still shows diffuse increasing interstitial markings. A pH today 7.44, pCO2 of 30, p02 182, improve significantly since yesterday. She is not a candidate for at this time. Nephrology will be consulted for her acute renal decline. CRITICAL CARE TIME: 30 minutes. Job ID: [id number]
--- NOTE | 2019-09-06 13:59 | OP ---
DATE OF PROCEDURE: 09/04/2019 PROCEDURE PERFORMED: Fiberoptic intubation. DESCRIPTION OF PROCEDURE: Ms. Billings would not open her mouth. She was assisting with Ambu bag ventilation. The mask was removed. I was easily able to pass a bronchoscope through her right naris down to her vocal cords, which appeared normal. She was nasally intubated with a 7.5 tube without difficulty. The tube was secured above the main eliseo. Significant thick clear secretions were encountered in the trachea down to the main eliseo. The main eliseo was not widened. The right lower lobe, right middle lobe, right upper lobe, left lower lobe, and left upper lobe were visualized. No endobronchial lesions were seen. Lab was just reviewed. Her creatinine has gone from 0.76 to 2.57 in 2 days with a positive fluid balance. She started to awaken after she was intubated. She has been placed on a fentanyl drip. Her pH 7.39, CO2 of 38, PO2 is 51 on 100%. Chest x-ray is pending. Job ID: [id number]
[2019-09-06] MEDS ORDERED: Pancrelipase DR 12000 1 CAP FS PRN (15:09)
[2019-09-06] MEDS ORDERED: Sodium Bicarbonate Tab 325 MG TAB PER TUBE PRN (15:09)
[2019-09-06] MEDS: cefTRIAXone\\ROCEPHIN 2 GM in Sodium Chloride 0.9% 100 ML IVPB SCH (20:31)
[2019-09-06] MEDS: Cyanocobalamin (Vitamin B-12) 1,000 MCG TAB PO SCH (20:32)
--- NOTE | 2019-09-06 22:15 | PDOC.HOSPP ---
- Subjective Encounter Date: 09/06/19 Encounter Time: 13:30 non-verbal Subjective: Patient seen and examined for Resp failure. On Vent. No overnight events - Objective Vital Signs & Weight: Vital Signs (12 hours) Temp Pulse Pulse Pulse Resp BP BP 09/06/19 22:00 15 09/06/19 20:31 77 138/65 09/06/19 19:27 13 09/06/19 19:18 09/06/19 19:00 98.7 F 09/06/19 18:56 77 18 09/06/19 18:00 17 09/06/19 16:00 98.2 F 16 09/06/19 15:35 76 145/66 H 09/06/19 14:50 73 145/69 H 09/06/19 14:00 14 09/06/19 13:34 74 148/80 H 09/06/19 12:00 98.2 F 13 09/06/19 10:22 79 78 140/59 L BP Pulse Ox Pulse Ox Pulse Ox 09/06/19 22:00 09/06/19 20:31 09/06/19 19:27 09/06/19 19:18 100 09/06/19 19:00 09/06/19 18:56 100 09/06/19 18:00 09/06/19 16:00 09/06/19 15:35 09/06/19 14:50 09/06/19 14:00 09/06/19 13:34 09/06/19 12:00 09/06/19 10:22 143/60 H 100 100 Weight Admit Weight 194 lb Weight 194 lb 6.656 oz Most Recent Monitor Data Heart Rate from ECG 83 NIBP 149/61 NIBP BP-Mean 90 Respiration from ECG 16 SpO2 100 I&O: 09/05/19 09/06/19 09/07/19 06:59 06:59 06:59 Intake Total 2123.0 971 597 Output Total 607 1135 1275 Balance 1516.0 -164 -678 Result Diagrams: 09/06/19 06:48 09/06/19 04:13 Additional Labs: Accuchecks 09/06/19 09/06/19 09/06/19 16:08 12:12 06:00 POC Glucose 102 99 117 H 09/06/19 00:11 POC Glucose 132 H EKG Reviewed by me: Yes (Tele SR) Hospitalist ROS - Review of Systems ROS unobtainable: due to mental status - Medication Medications: Active Medications Generic Name Dose Route Start Last Admin Trade Name Freq PRN Reason Stop Dose Admin Albuterol/Ipratropium 3 ml 09/04/19 18:30 09/06/19 18:56 Duoneb NEB 3 ml [id number] TIANA Administration Aspirin 81 mg 09/06/19 09:00 09/06/19 08:33 Aspirin Chewable PER TUBE 81 mg DAILY TIANA Administration Cyanocobalamin 1,000 mcg 09/01/19 21:00 09/06/19 20:32 Vitamin B-12 PO 1,000 mcg HS TIANA Administration Heparin Sodium (Porcine) 5,000 units 09/05/19 21:00 09/06/19 20:31 Heparin SC 5,000 units BID TIANA Administration Hydralazine HCl 25 mg 08/31/19 21:00 09/06/19 20:31 Apresoline PO 25 mg TID TIANA Administration Hydralazine HCl 10 mg 09/05/19 14:41 09/06/19 03:56 Apresoline SLOW IVP 10 mg Q4H PRN Administration SBP GREATER THAN 160 Ceftriaxone Sodium 2 gm/ 100 mls @ 200 mls/hr 09/04/19 20:00 09/06/19 20:31 Sodium Chloride IVPB 100 mls Q24HR TIANA Administration Nitroglycerin 0.4 mg 08/31/19 13:03 09/01/19 07:02 Nitrostat PO 0.4 mg Q5MIN PRN Administration Chest Pain Pantoprazole Sodium 40 mg 09/05/19 09:00 09/06/19 08:37 Protonix IVP 40 mg DAILY TIANA Administration Polyethylene Glycol 17 gm 09/04/19 09:00 09/06/19 08:37 Miralax PO 17 gm DAILY TIANA Administration Propofol 1,000 mg 09/04/19 16:39 09/06/19 15:26 Diprivan IV 10/04/19 16:39 1,000 mg INF PRN Administration TO ACHIEVE GOAL RASS Protocol Senna/Docusate Sodium 1 tab 09/03/19 20:39 09/06/19 20:32 Senokot S PO 1 tab BID TIANA Administration - Exam General Appearance: NAD Neck: supple, no JVD Heart: RRR, no gallops Respiratory: no wheezes, no rales Gastrointestinal: soft, no guarding, no rigidity Hosp A/P - Plan DVT proph w/heparin, DVT proph w/SCDs Acute hypoxic resp failure - intubated 09/03 UTI - no obstructive uropathy 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
[2019-09-07] MEDS: Propofol 1,000 MG/100 ML VIAL IV PRN ×3 (04:16→19:18)
[2019-09-07 04:39] LABS: ALT (SGPT) 11 U/L (8-55); AST (SGOT) 19 U/L (5-34); Albumin 2.7 g/dL (3.4-4.8); Alkaline Phosphatase 78 U/L (40-110); Anion Gap 14 mmol/L (10-20); BUN (Urea Nitrogen) 25 mg/dL (9.8-20.1); Bilirubin, Total 0.2 mg/dL (0.2-1.2); Calc. Creatinine Clearance 33 mL/min (70-130); Calcium 8.5 mg/dL (7.8-10.44); Carbon Dioxide 21 mmol/L (23-31); Chloride 106 mmol/L (98-107); Estimated GFR-MDRD 35; Glucose 104 mg/dL (83-110); Potassium 4.4 mmol/L (3.5-5.1); Protein, Total 5.7 g/dL (6.0-8.3); Sodium 137 mmol/L (136-145)
[2019-09-07 05:06] LABS: Band 3 % (5-11); Eosinophils 4 % (0-10); Hemoglobin 9.8 g/dL (12.0-16.0); Lymphocytes 14 % (21-51); MDiff Complete? YES; Mean Corpuscular HGB CONC 30.1 g/dL (32.0-36.0); Mean Corpuscular Hemoglobin 24.3 pg (27.0-31.0); Mean Corpuscular Volume 80.7 fL (78.0-98.0); Mean Platelet Volume 11.2 fL (7.4-10.4); Monocytes 6 % (0-10); Neutrophil 73 % (42-75); Platelet Count 274 thou/uL (130-400); RBC Distribution Width 22.1 % (11.5-14.5); Red Blood Cell (RBC) Count 4.02 mill/uL (4.20-5.40); White Blood Cell (WBC) Count 12.2 thou/uL (4.8-10.8)
--- NOTE | 2019-09-07 07:46 | RAD ---
PORTABLE UPRIGHT FRONTAL CHEST RADIOGRAPH: DATE: 09/07/2019. COMPARISON: 09/06/2019. HISTORY: Ventilated patient. FINDINGS: Stable endotracheal tube and nasogastric tubes. Stable heart and mediastinal contours. There is haz y airspace disease in the right lung base, worsened. There is increased density in the medial left b ase suggesting partial consolidation/collapse. Probable small bilateral pleural effusions, right lar fatimah than left. IMPRESSION: Bibasilar pleural and parenchymal opacity favors pulmonary edema. Infection or aspiration cannot be excluded. Followup to resolution advised. POS: [facility]
[2019-09-07] MEDS: hydrALAZINE 25 MG TAB PO SCH ×3 (08:32→19:19)
[2019-09-07] MEDS: Pantoprazole 40 MG VIAL IVP SCH (08:32)
[2019-09-07] MEDS: Senokot S 8.6-50 MG TAB PO SCH ×2 (08:32→19:19)
[2019-09-07] MEDS: Aspirin Chewable 81 MG TAB PER TUBE SCH (08:32)
[2019-09-07] MEDS: Polyethylene Glycol 3350 17 GM Packet PO SCH (08:32)
[2019-09-07 08:37] LABS: Actual Bicarbonate (HCO3a) 25.6 mEq/L (22-28); Base Excess (BEa) 1.9 mEq/L (-2.0 to +3.0); CO2 Tension 36.5 mmHg (35.0-45.0); Carboxyhemoglobin (COHb) 0.8 gm% (0.0-3.0); Hemoglobin (Hb) 10.1 g/dL (12.0-16.0); O2 Tension (PaO2) 72.8 mmHg (> 60.0); pH, Arterial 7.46 (7.35-7.45)
[2019-09-07 08:38] LABS: ALV-art Gradient 166.775 (0-20); Puncture Site RRA
--- NOTE | 2019-09-07 15:48 | PRG ---
DATE OF SERVICE: 09/07/2019 SUBJECTIVE: Ms. Billings remains mechanically ventilated. She passed spontaneous breathing trial, but unfortunately did not pass a leak test. OBJECTIVE: LUNGS: Clear. HEART: Regular rhythm. ABDOMEN: Soft. EXTREMITIES: Without edema. LABORATORY DATA: White count 12.8, hemoglobin 9.3, platelets 123. Creatinine is 1.66. IMPRESSION: Congestive heart failure with respiratory failure, not weanable until she passes a leak test. Critical care time 35 min. Job ID: [id number] MTDD
[2019-09-07] MEDS: methylPREDNISolone Sod Succ 40 MG VIAL IVP SCH ×2 (15:49→21:03)
[2019-09-07] MEDS: cefTRIAXone\\ROCEPHIN 2 GM in Sodium Chloride 0.9% 100 ML IVPB SCH (19:18)
[2019-09-07] MEDS: Cyanocobalamin (Vitamin B-12) 1,000 MCG TAB PO SCH (19:20)
--- NOTE | 2019-09-07 19:32 | PDOC.HOSPP ---
- Subjective Encounter Date: 09/07/19 Encounter Time: 17:00 Subjective: Patient seen and examined for Resp failure. On Vent. No overnight events - Objective Vital Signs & Weight: Vital Signs (12 hours) Temp Pulse Pulse Pulse Resp BP BP 09/07/19 19:19 86 125/51 L 09/07/19 18:29 84 132/52 L 09/07/19 18:00 18 09/07/19 16:00 98.7 F 24 H 09/07/19 15:29 92 135/55 L 09/07/19 14:45 85 132/59 L 09/07/19 14:00 16 09/07/19 13:33 85 132/59 L 09/07/19 12:00 99.5 F 17 09/07/19 10:34 90 09/07/19 10:00 16 09/07/19 08:41 73 72 121/49 L 09/07/19 08:32 84 128/57 L 09/07/19 08:29 84 128/57 L 09/07/19 08:00 20 BP Pulse Ox Pulse Ox 09/07/19 19:19 09/07/19 18:29 09/07/19 18:00 09/07/19 16:00 09/07/19 15:29 09/07/19 14:45 09/07/19 14:00 09/07/19 13:33 09/07/19 12:00 09/07/19 10:34 09/07/19 10:00 09/07/19 08:41 117/50 L 100 99 09/07/19 08:32 09/07/19 08:29 09/07/19 08:00 Weight Admit Weight 194 lb Weight 194 lb 0.108 oz Most Recent Monitor Data Heart Rate from ECG 85 NIBP 132/52 NIBP BP-Mean 78 Respiration from ECG 19 SpO2 100 I&O: 09/06/19 09/07/19 09/08/19 06:59 06:59 06:59 Intake Total 971 14939 953 Output Total 3052 6088 7566 Balance -164 93026 -597 Result Diagrams: 09/07/19 03:29 09/07/19 03:29 Additional Labs: Accuchecks 09/07/19 09/07/19 09/07/19 16:08 12:11 05:43 POC Glucose 120 H 133 H 125 H 09/06/19 23:49 POC Glucose 106 EKG Reviewed by me: Yes (Tele SR) Hospitalist ROS - Review of Systems ROS unobtainable: due to mental status - Medication Medications: Active Medications Generic Name Dose Route Start Last Admin Trade Name Freq PRN Reason Stop Dose Admin Albuterol/Ipratropium 3 ml 09/04/19 18:30 09/07/19 18:27 Duoneb NEB 3 ml [id number] TIANA Administration Aspirin 81 mg 09/06/19 09:00 09/07/19 08:32 Aspirin Chewable PER TUBE 81 mg DAILY TIANA Administration Cyanocobalamin 1,000 mcg 09/01/19 21:00 09/07/19 19:20 Vitamin B-12 PO Not Given HS TIANA Heparin Sodium (Porcine) 5,000 units 09/05/19 21:00 09/06/19 20:31 Heparin SC 5,000 units BID TIANA Administration Hydralazine HCl 25 mg 08/31/19 21:00 09/07/19 19:19 Apresoline PO 25 mg TID TIANA Administration Hydralazine HCl 10 mg 09/05/19 14:41 09/06/19 03:56 Apresoline SLOW IVP 10 mg Q4H PRN Administration SBP GREATER THAN 160 Ceftriaxone Sodium 2 gm/ 100 mls @ 200 mls/hr 09/04/19 20:00 09/07/19 19:18 Sodium Chloride IVPB 100 mls Q24HR TIANA Administration Lorazepam 2 mg 09/04/19 16:39 09/07/19 15:13 Ativan SLOW IVP 10/04/19 16:39 2 mg Q1H PRN Administration Breakthrough agitation Methylprednisolone Sodium Succinate 40 mg 09/07/19 16:00 09/07/19 15:49 Solu-Medrol IVP 40 mg 0400,1000,1600,2200 TIANA Administration Nitroglycerin 0.4 mg 08/31/19 13:03 09/01/19 07:02 Nitrostat PO 0.4 mg Q5MIN PRN Administration Chest Pain Pantoprazole Sodium 40 mg 09/05/19 09:00 09/07/19 08:32 Protonix IVP 40 mg DAILY TIANA Administration Polyethylene Glycol 17 gm 09/04/19 09:00 09/07/19 08:32 Miralax PO 17 gm DAILY TIANA Administration Propofol 1,000 mg 09/04/19 16:39 09/07/19 19:18 Diprivan IV 10/04/19 16:39 1,000 mg INF PRN Administration TO ACHIEVE GOAL RASS Protocol Senna/Docusate Sodium 1 tab 09/03/19 20:39 09/07/19 19:19 Senokot S PO 1 tab BID TIANA Administration Sodium Chloride 10 ml 09/03/19 08:44 09/07/19 19:19 Flush - Normal Saline IVF 10 ml PRN PRN Administration Saline Flush - Exam General Appearance: NAD Heart: RRR, no gallops, no rubs Respiratory: rhonchi Gastrointestinal: soft, non-distended, no guarding, no rigidity Extremities: no cyanosis, no edema Hosp A/P - Plan DVT proph w/SCDs Acute hypoxic resp failure - intubated 09/03 UTI - no obstructive uropathy 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
[2019-09-08] MEDS: methylPREDNISolone Sod Succ 40 MG VIAL IVP SCH ×4 (05:29→20:57)
[2019-09-08 05:55] LABS: Hemoglobin 9.6 g/dL (12.0-16.0); Mean Corpuscular HGB CONC 31.8 g/dL (32.0-36.0); Mean Corpuscular Hemoglobin 25.5 pg (27.0-31.0); Mean Corpuscular Volume 80.4 fL (78.0-98.0); Platelet Count 248 thou/uL (130-400); RBC Distribution Width 22.3 % (11.5-14.5); Red Blood Cell (RBC) Count 3.74 mill/uL (4.20-5.40); White Blood Cell (WBC) Count 10.4 thou/uL (4.8-10.8)
[2019-09-08 06:08] LABS: Band 3 % (5-11); Lymphocytes 10 % (21-51); MDiff Complete? YES; Monocytes 6 % (0-10); Neutrophil 81 % (42-75); Schistocytes SLIGHT = 2-5 cells (100X) (0-1/hpf)
[2019-09-08 06:11] LABS: ALT (SGPT) 9 U/L (8-55); AST (SGOT) 12 U/L (5-34); Albumin 2.9 g/dL (3.4-4.8); Alkaline Phosphatase 76 U/L (40-110); Anion Gap 12 mmol/L (10-20); BUN (Urea Nitrogen) 24 mg/dL (9.8-20.1); Bilirubin, Total 0.3 mg/dL (0.2-1.2); Calc. Creatinine Clearance 46 mL/min (70-130); Calcium 8.7 mg/dL (7.8-10.44); Carbon Dioxide 26 mmol/L (23-31); Chloride 105 mmol/L (98-107); Estimated GFR-MDRD 52; Globulin 3.1 g/dL (2.4-3.5); Glucose 180 mg/dL (83-110); Potassium 4.5 mmol/L (3.5-5.1); Sodium 138 mmol/L (136-145)
--- NOTE | 2019-09-08 07:38 | RAD ---
EXAM: Single view of the chest HISTORY: CCU patient with respiratory failure COMPARISON: 09/07/2019 FINDINGS: Single view of the chest shows an enlarged but stable cardiomediastinal silhouette. Athero sclerotic calcifications are seen in the aorta. The endotracheal tube and NG tube are unchanged in position. There are stable bilateral pleural effusions with adjacent atelectasis versus infiltrates. A calcified granuloma projects over the right lung. The bones are unremarkable. IMPRESSION: Stable exam
[2019-09-08] MEDS: Aspirin Chewable 81 MG TAB PER TUBE SCH (08:44)
[2019-09-08] MEDS: Polyethylene Glycol 3350 17 GM Packet PO SCH (08:44)
[2019-09-08] MEDS: hydrALAZINE 25 MG TAB PO SCH ×3 (08:44→19:28)
[2019-09-08] MEDS: hydrALAZINE 20 MG/ML VIAL SLOW IVP PRN (08:44)
[2019-09-08] MEDS: Senokot S 8.6-50 MG TAB PO SCH ×2 (08:45→19:29)
[2019-09-08] MEDS: Pantoprazole 40 MG VIAL IVP SCH (08:45)
--- NOTE | 2019-09-08 09:27 | PRG ---
DATE OF SERVICE: Eldno Billings still does not pass the leak test. OBJECTIVE: VITAL SIGNS: Heart rate in the 90s, blood pressure 145/65, respiratory rate is in the teens. She is still just on pressure support ventilation. Intake and outputs -609. Somehow yesterday's intake and output was reported as 19.5 L in. There is no weight recorded today. LUNGS: Clear. HEART: Regular rhythm. ABDOMEN: Soft. LABORATORY DATA: White count 10.4, hemoglobin 9.6, platelets 248. Electrolytes normal. Creatinine is 1.19. IMPRESSION: 1. Respiratory failure associated with volume overload with diastolic dysfunction and [id number] kidney disease. 2. ?Vocal cord edema. We will treat her for another 24 hours with IV steroids and then consider extubation tomorrow. Critical care time 30 min. Job ID: [id number] MTDD
[2019-09-08] MEDS: Morphine 2 MG/ML SYRINGE SLOW IVP PRN ×2 (09:30→15:05)
[2019-09-08] MEDS: Scopolamine 1.5 mg/72 hour Patch TOP SCH (12:45)
[2019-09-08] MEDS: Propofol 1,000 MG/100 ML VIAL IV PRN (15:06)
[2019-09-08] MEDS: Cyanocobalamin (Vitamin B-12) 1,000 MCG TAB PO SCH (19:28)
[2019-09-08] MEDS: cefTRIAXone\\ROCEPHIN 2 GM in Sodium Chloride 0.9% 100 ML IVPB SCH (19:29)
--- NOTE | 2019-09-08 22:56 | PDOC.HOSPP ---
- Subjective Encounter Date: 09/08/19 Encounter Time: 11:30 non-verbal Subjective: Patient seen and examined for Resp failure. On Vent. No overnight events - Objective Vital Signs & Weight: Vital Signs (12 hours) Temp Pulse Pulse Pulse Resp BP BP 09/08/19 22:10 84 173/69 H 09/08/19 22:00 11 L 09/08/19 20:00 98.9 F 18 09/08/19 18:48 86 161/70 H 09/08/19 18:00 18 09/08/19 16:00 99 F 14 09/08/19 15:19 89 125/55 L 09/08/19 15:05 91 162/69 H 09/08/19 14:00 19 09/08/19 13:56 92 90 155/65 H 09/08/19 13:09 91 162/69 H 09/08/19 12:00 99.1 F 18 BP Pulse Ox Pulse Ox Pulse Ox 09/08/19 22:10 09/08/19 22:00 09/08/19 20:00 99 09/08/19 18:48 09/08/19 18:00 09/08/19 16:00 09/08/19 15:19 09/08/19 15:05 09/08/19 14:00 09/08/19 13:56 147/62 H 99 98 09/08/19 13:09 09/08/19 12:00 Weight Admit Weight 178 lb 9.2 oz Weight 185 lb 3.013 oz Most Recent Monitor Data Heart Rate from ECG 86 NIBP 173/69 NIBP BP-Mean 103 Respiration from ECG 15 SpO2 100 I&O: 09/07/19 09/08/19 09/09/19 06:59 06:59 06:59 Intake Total 1481.6 1791 954 Output Total 1855 2400 810 Balance -373.4 -609 144 Result Diagrams: 09/08/19 05:38 09/08/19 05:38 Additional Labs: Accuchecks 09/08/19 09/07/19 12:03 23:47 POC Glucose 194 H 184 H Radiology Reviewed by me: Yes (CXR - Stable) EKG Reviewed by me: Yes (Tele SR) Hospitalist ROS - Review of Systems ROS unobtainable: due to mental status - Medication Medications: Active Medications Generic Name Dose Route Start Last Admin Trade Name Freq PRN Reason Stop Dose Admin Acetaminophen 650 mg 09/01/19 07:57 09/08/19 15:05 Tylenol PO 650 mg Q4H PRN Administration Mild Pain (1-3) Albuterol/Ipratropium 3 ml 09/04/19 18:30 09/08/19 22:09 Duoneb NEB 3 ml [id number] TINAA Administration Aspirin 81 mg 09/06/19 09:00 09/08/19 08:44 Aspirin Chewable PER TUBE 81 mg DAILY TIANA Administration Cyanocobalamin 1,000 mcg 09/01/19 21:00 09/08/19 19:28 Vitamin B-12 PO 1,000 mcg HS TIANA Administration Heparin Sodium (Porcine) 5,000 units 09/05/19 21:00 09/06/19 20:31 Heparin SC 5,000 units BID TIANA Administration Hydralazine HCl 25 mg 08/31/19 21:00 09/08/19 19:28 Apresoline PO 25 mg TID TIANA Administration Hydralazine HCl 10 mg 09/05/19 14:41 09/08/19 08:44 Apresoline SLOW IVP 10 mg Q4H PRN Administration SBP GREATER THAN 160 Ceftriaxone Sodium 2 gm/ 100 mls @ 200 mls/hr 09/04/19 20:00 09/08/19 19:29 Sodium Chloride IVPB 100 mls Q24HR TIANA Administration Lorazepam 2 mg 09/04/19 16:39 09/07/19 15:13 Ativan SLOW IVP 10/04/19 16:39 2 mg Q1H PRN Administration Breakthrough agitation Methylprednisolone Sodium Succinate 40 mg 09/07/19 16:00 09/08/19 20:57 Solu-Medrol IVP 40 mg 0400,1000,1600,2200 TIANA Administration Morphine Sulfate 2 mg 09/04/19 16:39 09/08/19 15:05 Morphine SLOW IVP 10/04/19 16:39 2 mg Q1H PRN Administration BREAKTHROUGH PAIN/Agitation Nitroglycerin 0.4 mg 08/31/19 13:03 09/01/19 07:02 Nitrostat PO 0.4 mg Q5MIN PRN Administration Chest Pain Pantoprazole Sodium 40 mg 09/05/19 09:00 09/08/19 08:45 Protonix IVP 40 mg DAILY TIANA Administration Polyethylene Glycol 17 gm 09/04/19 09:00 09/08/19 08:44 Miralax PO 17 gm DAILY TIANA Administration Propofol 1,000 mg 09/04/19 16:39 09/08/19 15:06 Diprivan IV 10/04/19 16:39 1,000 mg INF PRN Administration TO ACHIEVE GOAL RASS Protocol Scopolamine 1.5 mg 09/08/19 12:15 09/08/19 12:45 Transderm Scop TOP 1.5 mg Q3D TIANA Administration Senna/Docusate Sodium 1 tab 09/03/19 20:39 09/08/19 19:29 Senokot S PO 1 tab BID TIANA Administration Sodium Chloride 10 ml 09/03/19 08:44 09/07/19 19:19 Flush - Normal Saline IVF 10 ml PRN PRN Administration Saline Flush - Exam General Appearance: NAD Neck: supple, no JVD Heart: RRR, no gallops Respiratory: no wheezes, rhonchi Gastrointestinal: non-tender, non-distended, normal bowel sounds Extremities: no cyanosis Hosp A/P - Plan DVT proph w/SCDs Acute hypoxic resp failure - intubated 09/03 UTI - no obstructive uropathy 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
[2019-09-09] MEDS: Propofol 1,000 MG/100 ML VIAL IV PRN (04:51)
[2019-09-09] MEDS: methylPREDNISolone Sod Succ 40 MG VIAL IVP SCH ×4 (04:51→21:02)
[2019-09-09 04:57] LABS: ALT (SGPT) 10 U/L (8-55); AST (SGOT) 17 U/L (5-34); Albumin 2.9 g/dL (3.4-4.8); Alkaline Phosphatase 70 U/L (40-110); Anion Gap 13 mmol/L (10-20); BUN (Urea Nitrogen) 32 mg/dL (9.8-20.1); Bilirubin, Total Less than 0.2 mg/dL (0.2-1.2); Calc. Creatinine Clearance 55 mL/min (70-130); Calcium 8.8 mg/dL (7.8-10.44); Carbon Dioxide 26 mmol/L (23-31); Chloride 106 mmol/L (98-107); Estimated GFR-MDRD 67; Globulin 3.2 g/dL (2.4-3.5); Glucose 183 mg/dL (83-110); Potassium 4.8 mmol/L (3.5-5.1); Protein, Total 6.1 g/dL (6.0-8.3); Sodium 140 mmol/L (136-145)
[2019-09-09] MEDS: hydrALAZINE 20 MG/ML VIAL SLOW IVP PRN ×3 (05:05→15:44)
[2019-09-09 05:22] LABS: Band 8 % (5-11); Hemoglobin 9.5 g/dL (12.0-16.0); Lymphocytes 12 % (21-51); MDiff Complete? YES; Mean Corpuscular HGB CONC 30.4 g/dL (32.0-36.0); Mean Corpuscular Hemoglobin 24.9 pg (27.0-31.0); Mean Corpuscular Volume 81.8 fL (78.0-98.0); Mean Platelet Volume 11.3 fL (7.4-10.4); Monocytes 3 % (0-10); Neutrophil 77 % (42-75); Nucleated RBC 1 % (0); Platelet Count 260 thou/uL (130-400); RBC Distribution Width 22.3 % (11.5-14.5); Red Blood Cell (RBC) Count 3.81 mill/uL (4.20-5.40); White Blood Cell (WBC) Count 10.2 thou/uL (4.8-10.8)
[2019-09-09 07:00] LABS: Actual Bicarbonate (HCO3a) 26.6 mEq/L (22-28); CO2 Tension 41.7 mmHg (35.0-45.0); Calcium, Ionized 1.25 mmol/L (1.12-1.30); Carboxyhemoglobin (COHb) 1.1 gm% (0.0-3.0); Hemoglobin (Hb) 11.3 g/dL (12.0-16.0); O2 Tension (PaO2) 72.9 mmHg (> 60.0); Potassium - ABG Lab 4.62 mmol/L (3.70-5.30); pH, Arterial 7.42 (7.35-7.45)
[2019-09-09 07:04] LABS: ALV-art Gradient 160.175 (0-20); Puncture Site LRA
--- NOTE | 2019-09-09 07:49 | RAD ---
EXAM: Single view of the chest HISTORY: Ventilated patient with respiratory failure COMPARISON: 09/08/2019 FINDINGS: Single view of the chest shows an enlarged cardiomediastinal silhouette. The obscurity of the left hemidiaphragm may represent a small left pleural effusion. Calcified granuloma of the right chest. The endotracheal tube and NG tube are unchanged in position. The bones are unremarkable. IMPRESSION: Stable exam
[2019-09-09] MEDS: Pantoprazole 40 MG VIAL IVP SCH (09:00)
[2019-09-09] MEDS: Carvedilol 3.125 MG TAB PER TUBE SCH ×2 (09:00→16:25)
[2019-09-09] MEDS: Pantoprazole 40 MG GRANULES PACKET PO SCH (09:00)
[2019-09-09] MEDS: Senokot S 8.6-50 MG TAB PO SCH ×2 (09:39→19:46)
[2019-09-09] MEDS: Furosemide 20 MG TAB PER TUBE SCH ×2 (09:39→14:30)
[2019-09-09] MEDS: Aspirin Chewable 81 MG TAB PER TUBE SCH (09:40)
[2019-09-09] MEDS: hydrALAZINE 25 MG TAB PO SCH ×4 (09:40→23:57)
[2019-09-09] MEDS: Heparin 5,000 UNITS/ML VIAL SC SCH ×2 (09:41→19:46)
[2019-09-09] MEDS: Polyethylene Glycol 3350 17 GM Packet PO SCH (09:41)
--- NOTE | 2019-09-09 14:04 | PRG ---
DATE OF SERVICE: 09/09/2019 SUBJECTIVE: Eldon Billings is awake and alert. She did have a leak this morning. OBJECTIVE: VITAL SIGNS: She is afebrile. Heart rate 88, blood pressure 166/77. LUNGS: Clear. HEART: Regular rhythm. S1, S2 are normal. ABDOMEN: Soft and nontender. EXTREMITIES: Without clubbing, cyanosis, or edema. LABORATORY DATA: White count 10.2, hemoglobin 9.5, platelets 260. Sodium 140, potassium 4.6, chloride 106, bicarb 26, BUN 32, creatinine 0.95. PH 7.42, CO2 of 41, and pO2 of 72. IMPRESSION: 1. Respiratory failure associated with volume overload. 2. Diastolic heart failure. 3. Chronic kidney disease. 4. Status post emergent intubation for respiratory failure. She appears to be clinically stable. She has been extubated successfully. She has an excellent cough and is in no distress at this time. Job ID: [id number]
[2019-09-09] MEDS ORDERED: cloNIDine 0.1 MG TAB PO PRN (17:02)
[2019-09-09] MEDS ORDERED: Labetalol HCl 100 MG/20 ML VIAL SLOW IVP PRN (17:02)
[2019-09-09] MEDS ORDERED: NIFEdipine XL 30 MG TAB PO PRN (17:04)
[2019-09-09] MEDS ORDERED: DC Sedation Protocol FS ONE (17:06)
[2019-09-09] MEDS ORDERED: hydrALAZINE 20 MG/ML VIAL SLOW IVP PRN (17:06)
[2019-09-09] MEDS ORDERED: Polyethylene Glycol 3350 17 GM Packet PO PRN (17:07)
[2019-09-09] MEDS ORDERED: Amlodipine 5 MG TAB PER TUBE SCH (17:15)
[2019-09-09] MEDS ORDERED: Nitroglycerin 2% Ointment 1 INCH/1 GM Packet TOP PRN (19:17)
--- NOTE | 2019-09-09 19:19 | PDOC.HOSPP ---
- Subjective Encounter Date: 09/09/19 Encounter Time: 18:00 Subjective: Patient seen and examined for Resp failure. Extubated today. No new complaints. No overnight events - Objective Vital Signs & Weight: Vital Signs (12 hours) Temp Pulse Pulse Resp BP BP BP 09/09/19 18:27 88 180/101 H 09/09/19 18:22 92 14 09/09/19 16:00 98.8 F 09/09/19 15:49 94 16 09/09/19 15:44 93 183/98 H 09/09/19 15:01 91 170/64 H 09/09/19 14:30 91 170/64 H 09/09/19 12:00 98.7 F 09/09/19 10:51 94 35 H 09/09/19 10:15 09/09/19 10:00 14 09/09/19 09:40 90 161/78 H 09/09/19 08:57 92 166/68 H 09/09/19 08:45 92 166/68 H 155/70 H 09/09/19 08:00 99 F 12 Pulse Ox Pulse Ox 09/09/19 18:27 09/09/19 18:22 98 09/09/19 16:00 09/09/19 15:49 99 09/09/19 15:44 09/09/19 15:01 09/09/19 14:30 09/09/19 12:00 09/09/19 10:51 99 09/09/19 10:15 99 09/09/19 10:00 09/09/19 09:40 09/09/19 08:57 100 09/09/19 08:45 100 09/09/19 08:00 96 Weight Admit Weight 178 lb 9.2 oz Weight 191 lb 12.835 oz Most Recent Monitor Data Heart Rate from ECG 91 NIBP 180/101 NIBP BP-Mean 127 Respiration from ECG 15 SpO2 97 I&O: 09/08/19 09/09/19 09/10/19 06:59 06:59 06:59 Intake Total 1791 1734.2 845 Output Total 2400 1175 1500 Balance -609 559.2 -655 Result Diagrams: 09/09/19 03:38 09/09/19 03:38 Additional Labs: Microbiology 09/04/19 17:42 Urine [place] catheter Urine Culture - Final Klebsiella pneumoniae ssp pneu Citrobacter amalonaticus 09/04/19 17:42 Urine med[place] catheter Urine Culture - Preliminary EKG Reviewed by me: Yes (Tele SR) Hospitalist ROS - Review of Systems Respiratory: denies: cough, dry, shortness of breath, hemoptysis, SOB with excertion, pleuritic pain, sputum, wheezing, other Cardiovascular: denies: chest pain, palpitations, orthopnea, paroxysmal noc. dyspnea, edema, light headedness, other - Medication Medications: Active Medications Generic Name Dose Route Start Last Admin Trade Name Freq PRN Reason Stop Dose Admin Acetaminophen 650 mg 09/01/19 07:57 09/08/19 15:05 Tylenol PO 650 mg Q4H PRN Administration Mild Pain (1-3) Albuterol/Ipratropium 3 ml 09/04/19 18:30 09/09/19 18:22 Duoneb NEB 3 ml [id number] TIANA Administration Aspirin 81 mg 09/06/19 09:00 09/09/19 09:40 Aspirin Chewable PER TUBE 81 mg DAILY TIANA Administration Carvedilol 3.125 mg 09/09/19 08:00 09/09/19 16:25 Coreg PER TUBE 3.125 mg BID-WM TIANA Administration Cyanocobalamin 1,000 mcg 09/01/19 21:00 09/08/19 19:28 Vitamin B-12 PO 1,000 mcg HS TIANA Administration Furosemide 20 mg 09/09/19 09:00 09/09/19 14:30 Lasix PER TUBE 20 mg 0900,1400 TIANA Administration Heparin Sodium (Porcine) 5,000 units 09/05/19 21:00 09/09/19 09:41 Heparin SC 5,000 units BID TIANA Administration Hydralazine HCl 10 mg 09/05/19 14:41 09/09/19 15:44 Apresoline SLOW IVP 10 mg Q4H PRN Administration SBP GREATER THAN 160 Hydralazine HCl 50 mg 09/09/19 18:00 09/09/19 18:27 Apresoline PO 50 mg Q6HR TIANA Administration Methylprednisolone Sodium Succinate 40 mg 09/07/19 16:00 09/09/19 16:24 Solu-Medrol IVP 40 mg 0400,1000,1600,2200 TIANA Administration Nitroglycerin 0.4 mg 08/31/19 13:03 09/01/19 07:02 Nitrostat PO 0.4 mg Q5MIN PRN Administration Chest Pain Pantoprazole Sodium 40 mg 09/09/19 09:00 09/09/19 09:00 Protonix PO Not Given DAILY TIANA Polyethylene Glycol 17 gm 09/04/19 09:00 09/09/19 09:41 Miralax PO 17 gm DAILY TIANA Administration Scopolamine 1.5 mg 09/08/19 12:15 09/08/19 12:45 Transderm Scop TOP 1.5 mg Q3D TIANA Administration Senna/Docusate Sodium 1 tab 09/03/19 20:39 09/09/19 09:39 Senokot S PO 1 tab BID TIANA Administration Sodium Chloride 10 ml 09/03/19 08:44 09/07/19 19:19 Flush - Normal Saline IVF 10 ml PRN PRN Administration Saline Flush - Exam General Appearance: NAD Heart: RRR, no gallops Respiratory: no wheezes, no rales, rhonchi Gastrointestinal: non-tender, normal bowel sounds Extremities: no clubbing Neurological: no new deficit Hosp A/P - Plan DVT proph w/SCDs Acute hypoxic resp failure - intubated 09/03 - extubated 09/08 UTI - completed Atbx 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
[2019-09-09] MEDS: Amlodipine 5 MG TAB PER TUBE SCH (19:46)
[2019-09-09] MEDS: Cyanocobalamin (Vitamin B-12) 1,000 MCG TAB PO SCH (19:50)
[2019-09-09] MEDS ORDERED: hydrALAZINE 25 MG TAB PO SCH (21:00)
[2019-09-10] MEDS: methylPREDNISolone Sod Succ 40 MG VIAL IVP SCH ×3 (04:33→16:59)
[2019-09-10] MEDS: hydrALAZINE 25 MG TAB PO SCH ×3 (04:35→19:36)
[2019-09-10 05:23] LABS: Hemoglobin 10.6 g/dL (12.0-16.0); Hypochromia SLIGHT = 6-15 cells (100X) (0-5/hpf); Lymphocytes 9 % (21-51); MDiff Complete? YES; Mean Corpuscular HGB CONC 30.1 g/dL (32.0-36.0); Mean Corpuscular Volume 82.9 fL (78.0-98.0); Mean Platelet Volume 11.1 fL (7.4-10.4); Monocytes 3 % (0-10); Neutrophil 88 % (42-75); Platelet Count 297 thou/uL (130-400); Platelet Morphology Comment Appears Adequate; RBC Distribution Width 22.6 % (11.5-14.5); Red Blood Cell (RBC) Count 4.23 mill/uL (4.20-5.40); White Blood Cell (WBC) Count 13.1 thou/uL (4.8-10.8)
[2019-09-10 05:34] LABS: ALT (SGPT) 11 U/L (8-55); AST (SGOT) 14 U/L (5-34); Albumin 3.1 g/dL (3.4-4.8); Alkaline Phosphatase 72 U/L (40-110); Anion Gap 10 mmol/L (10-20); BUN (Urea Nitrogen) 42 mg/dL (9.8-20.1); Bilirubin, Total 0.3 mg/dL (0.2-1.2); Calc. Creatinine Clearance 61 mL/min (70-130); Calcium 8.9 mg/dL (7.8-10.44); Carbon Dioxide 28 mmol/L (23-31); Chloride 106 mmol/L (98-107); Estimated GFR-MDRD 73; Globulin 3.1 g/dL (2.4-3.5); Glucose 170 mg/dL (83-110); Potassium 4.8 mmol/L (3.5-5.1); Protein, Total 6.2 g/dL (6.0-8.3); Sodium 139 mmol/L (136-145)
[2019-09-10] MEDS: Pantoprazole 40 MG GRANULES PACKET PO SCH (07:38)
[2019-09-10] MEDS: Aspirin Chewable 81 MG TAB PER TUBE SCH (07:38)
[2019-09-10] MEDS: Furosemide 20 MG TAB PER TUBE SCH ×2 (07:38→15:09)
[2019-09-10] MEDS: Carvedilol 3.125 MG TAB PER TUBE SCH (07:38)
[2019-09-10] MEDS: Amlodipine 5 MG TAB PER TUBE SCH ×2 (07:39→21:36)
[2019-09-10] MEDS: Polyethylene Glycol 3350 17 GM Packet PO SCH (07:39)
[2019-09-10] MEDS: Senokot S 8.6-50 MG TAB PO SCH ×2 (07:39→21:36)
[2019-09-10] MEDS: Heparin 5,000 UNITS/ML VIAL SC SCH ×2 (07:42→21:36)
[2019-09-10] MEDS ORDERED: Carvedilol 3.125 MG TAB PO SCH (12:00)
--- NOTE | 2019-09-10 12:16 | PRG ---
DATE OF SERVICE: 09/10/2019 SUBJECTIVE: Ms. Billings is doing well. She has no complaints. OBJECTIVE: VITAL SIGNS: Heart rate 77, respiratory rates in the 20s, oximetry is 100%, blood pressure is 155/73. LUNGS: Clear. HEART: Regular rhythm. ABDOMEN: Soft. EXTREMITIES: Without edema. LABORATORY DATA: White count 13.1, hemoglobin 10.6, platelets 297. Sodium 139, potassium 4.8, chloride 106, bicarb 28, BUN 42, creatinine 0.89, albumin is 3.1. IMPRESSION AND PLAN: 1. Volume overload, resolved. 2. Status post emergent intubation for volume overload. 3. Diastolic dysfunction. 4. [id number] kidney disease. We will continue to follow while she is in the Critical Care Unit. She appears to be stable at this time. Job ID: [id number]
[2019-09-10] MEDS: Carvedilol 6.25 MG TAB PO SCH (16:58)
--- NOTE | 2019-09-10 19:03 | PDOC.HOSPP ---
- Subjective Encounter Date: 09/10/19 Encounter Time: 10:30 Subjective: Patient seen and examined for Resp failure. Feeling better. No CP/SOB. No new complaints. No overnight events - Objective Vital Signs & Weight: Vital Signs (12 hours) Temp Pulse Pulse Pulse Resp BP BP 09/10/19 18:30 12 09/10/19 16:00 98.7 F 09/10/19 14:13 87 15 09/10/19 13:53 87 86 177/81 H 176/78 H 09/10/19 12:00 98.0 F 09/10/19 10:22 77 28 H 09/10/19 07:39 82 13 BP Pulse Ox Pulse Ox Pulse Ox 09/10/19 18:30 09/10/19 16:00 09/10/19 14:13 100 09/10/19 13:53 161/93 H 99 99 09/10/19 12:00 09/10/19 10:22 100 09/10/19 07:39 100 Weight Admit Weight 178 lb 9.2 oz Weight 188 lb 4.396 oz Most Recent Monitor Data Heart Rate from ECG 84 NIBP 160/88 NIBP BP-Mean 112 Respiration from ECG 14 SpO2 100 I&O: 09/09/19 09/10/19 09/11/19 06:59 06:59 06:59 Intake Total 1734.2 1649 794 Output Total 1175 2290 400 Balance 559.2 -641 394 Result Diagrams: 09/10/19 04:57 09/10/19 04:57 EKG Reviewed by me: Yes (Tele SR) Hospitalist ROS - Review of Systems Respiratory: denies: cough, dry, shortness of breath, hemoptysis, SOB with excertion, pleuritic pain, sputum, wheezing, other Cardiovascular: denies: chest pain, palpitations, orthopnea, paroxysmal noc. dyspnea, edema, light headedness, other - Medication Medications: Active Medications Generic Name Dose Route Start Last Admin Trade Name Freq PRN Reason Stop Dose Admin Acetaminophen 650 mg 09/01/19 07:57 09/08/19 15:05 Tylenol PO 650 mg Q4H PRN Administration Mild Pain (1-3) Albuterol/Ipratropium 3 ml 09/04/19 18:30 09/10/19 18:30 Duoneb NEB 3 ml [id number] TIANA Administration Amlodipine Besylate 5 mg 09/09/19 21:00 09/10/19 07:39 Norvasc PER TUBE 5 mg BID TIANA Administration Aspirin 81 mg 09/06/19 09:00 09/10/19 07:38 Aspirin Chewable PER TUBE 81 mg DAILY TIANA Administration Carvedilol 6.25 mg 09/10/19 17:00 09/10/19 16:58 Coreg PO 6.25 mg BID-WM TIANA Administration Cyanocobalamin 1,000 mcg 09/01/19 21:00 09/09/19 19:50 Vitamin B-12 PO 1,000 mcg HS TIANA Administration Furosemide 20 mg 09/09/19 09:00 09/10/19 15:09 Lasix PER TUBE 20 mg 0900,1400 TIANA Administration Heparin Sodium (Porcine) 5,000 units 09/05/19 21:00 09/10/19 07:42 Heparin SC 5,000 units BID TIANA Administration Hydralazine HCl 10 mg 09/05/19 14:41 09/09/19 15:44 Apresoline SLOW IVP 10 mg Q4H PRN Administration SBP GREATER THAN 160 Hydralazine HCl 50 mg 09/09/19 18:00 09/10/19 12:11 Apresoline PO 50 mg Q6HR TIANA Administration Hydralazine HCl 20 mg 09/09/19 17:06 09/10/19 12:22 Apresoline SLOW IVP 20 mg Q6H PRN Administration SBP Greater Than 180 Nitroglycerin 0.4 mg 08/31/19 13:03 09/01/19 07:02 Nitrostat PO 0.4 mg Q5MIN PRN Administration Chest Pain Pantoprazole Sodium 40 mg 09/09/19 09:00 09/10/19 07:38 Protonix PO 40 mg DAILY TIANA Administration Polyethylene Glycol 17 gm 09/04/19 09:00 09/10/19 07:39 Miralax PO Not Given DAILY [facility] Scopolamine 1.5 mg 09/08/19 12:15 09/08/19 12:45 Transderm Scop TOP 1.5 mg Q3D TIANA Administration Senna/Docusate Sodium 1 tab 09/03/19 20:39 09/10/19 07:39 Senokot S PO Not Given BID [facility] Sodium Chloride 10 ml 09/03/19 08:44 09/07/19 19:19 Flush - Normal Saline IVF 10 ml PRN PRN Administration Saline Flush - Exam General Appearance: NAD Neck: supple, no JVD Heart: RRR, no gallops Respiratory: CTAB, no rales Gastrointestinal: non-tender, non-distended, normal bowel sounds Extremities: no cyanosis Neurological: no new deficit Hosp A/P - Plan DVT proph w/SCDs Acute hypoxic resp failure - intubated 09/03 - extubated 09/08 UTI - completed Atbx DESTIN on CKD 2 (Losartan dced) Bradycardia with hypotension/Code green on 09/03 - off Dopamine drip (BB/CCB dced ) Chest pain on admission - Prob due to symptomatic anemia 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
[2019-09-10] MEDS: Cyanocobalamin (Vitamin B-12) 1,000 MCG TAB PO SCH (21:36)
[2019-09-11] MEDS: hydrALAZINE 25 MG TAB PO SCH ×5 (02:19→23:42)
[2019-09-11 05:33] LABS: ALT (SGPT) 9 U/L (8-55); AST (SGOT) 10 U/L (5-34); Alkaline Phosphatase 60 U/L (40-110); Anion Gap 14 mmol/L (10-20); BUN (Urea Nitrogen) 50 mg/dL (9.8-20.1); Band 1 % (5-11); Bilirubin, Total 0.2 mg/dL (0.2-1.2); Calc. Creatinine Clearance 68 mL/min (70-130); Carbon Dioxide 26 mmol/L (23-31); Chloride 107 mmol/L (98-107); Crenated RBC SLIGHT = 1-5 cells (100X) (None Seen); Estimated GFR-MDRD 83; Globulin 2.9 g/dL (2.4-3.5); Glucose 151 mg/dL (83-110); Hemoglobin 10.4 g/dL (12.0-16.0); Hypochromia SLIGHT = 6-15 cells (100X) (0-5/hpf); Lymphocytes 14 % (21-51); MDiff Complete? YES; Mean Corpuscular HGB CONC 29.7 g/dL (32.0-36.0); Mean Corpuscular Hemoglobin 25.1 pg (27.0-31.0); Mean Corpuscular Volume 84.5 fL (78.0-98.0); Mean Platelet Volume 11.3 fL (7.4-10.4); Monocytes 17 % (0-10); Neutrophil 68 % (42-75); Platelet Count 295 thou/uL (130-400); Platelet Morphology Comment Appears Adequate; Potassium 4.7 mmol/L (3.5-5.1); Protein, Total 5.9 g/dL (6.0-8.3); RBC Distribution Width 22.9 % (11.5-14.5); Red Blood Cell (RBC) Count 4.14 mill/uL (4.20-5.40); Sodium 142 mmol/L (136-145); White Blood Cell (WBC) Count 13.7 thou/uL (4.8-10.8)
[2019-09-11] MEDS: Aspirin Chewable 81 MG TAB PER TUBE SCH (09:02)
[2019-09-11] MEDS: Furosemide 20 MG TAB PER TUBE SCH ×2 (09:02→14:31)
[2019-09-11] MEDS: Senokot S 8.6-50 MG TAB PO SCH ×2 (09:02→21:05)
[2019-09-11] MEDS: Pantoprazole 40 MG GRANULES PACKET PO SCH (09:02)
[2019-09-11] MEDS: Carvedilol 6.25 MG TAB PO SCH ×2 (09:02→16:01)
[2019-09-11] MEDS: predniSONE 20 MG TAB PO SCH ×2 (09:03→16:01)
[2019-09-11] MEDS: Heparin 5,000 UNITS/ML VIAL SC SCH ×2 (09:03→21:04)
[2019-09-11] MEDS: Polyethylene Glycol 3350 17 GM Packet PO SCH (09:03)
[2019-09-11] MEDS: Amlodipine 5 MG TAB PER TUBE SCH ×2 (09:03→21:05)
--- NOTE | 2019-09-11 11:33 | PRG ---
DATE OF SERVICE: 09/11/2019 SUBJECTIVE: The patient seems to be doing okay. She does not talk to me. OBJECTIVE: VITAL SIGNS: Temperature 97.9, pulse 80, respiratory rate 14, O2 saturation in the 90s on 2 L, and blood pressure 140/64. HEENT: Remarkable for left naris NG tube. NECK: No adenopathy or JVD. LUNGS: Clear anteriorly. CARDIAC: S1 and S2. Regular. ABDOMEN: Soft. EXTREMITIES: Trace edema. LABORATORY DATA: Sodium 142, potassium 4.7, chloride 107, CO2 of 26, BUN 50, creatinine 0.7, glucose 151. White blood cell count 13.7, hematocrit 35, and platelet count 295. ASSESSMENT: 1. Status post volume overload. 2. Status post intubation for volume overload. 3. Diastolic dysfunction. 4. Acute on chronic kidney disease with increasing BUN. RECOMMENDATIONS: Present care seems appropriate. The patient has been switched over to oral steroids. We will follow peripherally. Job ID: [id number]
[2019-09-11] MEDS: Scopolamine 1.5 mg/72 hour Patch TOP SCH (11:40)
--- NOTE | 2019-09-11 13:29 | EKG ---
Test Reason : Blood Pressure : / mmHG Vent. Rate : 077 BPM Atrial Rate : 077 BPM P-R Int : 092 ms QRS Dur : 082 ms QT Int : 412 ms P-R-T Axes : 074 040 015 degrees QTc Int : 466 ms Sinus rhythm with short NV with Premature supraventricular complexes with occasional Premature ventri cular complexes Otherwise normal ECG Confirmed by DANIELE SALCEDO DO ([id number]), publications editor EL SERRATO ([id number]) on 09/11/2019 1:29:01 PM Referred By: Confirmed By:DANIELE SALCEDO DO
[2019-09-11] MEDS: Isosorbide Dinitrate 20 MG TAB PO SCH ×2 (15:59→21:05)
--- NOTE | 2019-09-11 16:14 | PDOC.HOSPP ---
- Subjective Encounter Date: 09/11/19 Encounter Time: 08:30 Subjective: Patient seen and examined for Resp failure/Anemia. No CP or SOB. Still NPO. Tolerating PO. No new complaints. No overnight events - Objective Vital Signs & Weight: Vital Signs (12 hours) Temp Pulse Pulse Resp BP BP Pulse Ox 09/11/19 15:08 79 16 09/11/19 11:34 97.8 F 74 18 174/74 H 100 09/11/19 10:40 79 194/77 H 09/11/19 08:54 97.9 F 80 14 140/64 100 09/11/19 08:24 91 L 09/11/19 08:23 87 18 09/11/19 04:17 98.2 F 92 18 135/60 99 Pulse Ox Pulse Ox 09/11/19 15:08 09/11/19 11:34 09/11/19 10:40 99 98 09/11/19 08:54 09/11/19 08:24 09/11/19 08:23 09/11/19 04:17 Weight Admit Weight 178 lb 9.2 oz Weight 184 lb 5 oz Most Recent Monitor Data Heart Rate from ECG 84 NIBP 160/88 NIBP BP-Mean 112 Respiration from ECG 14 SpO2 100 I&O: 09/10/19 09/11/19 09/12/19 06:59 06:59 06:59 Intake Total 1649 1244 30 Output Total 2290 1050 Balance -641 194 30 Result Diagrams: 09/11/19 04:48 09/11/19 04:48 Additional Labs: Accuchecks 09/11/19 09/11/19 09/11/19 13:06 05:56 00:23 POC Glucose 159 H 134 H 172 H EKG Reviewed by me: Yes (Tele SR) Hospitalist ROS - Review of Systems Respiratory: denies: cough, dry, shortness of breath, hemoptysis, SOB with excertion, pleuritic pain, sputum, wheezing, other Cardiovascular: denies: chest pain, palpitations, orthopnea, paroxysmal noc. dyspnea, edema, light headedness, other Gastrointestinal: denies: nausea, vomiting, abdominal pain, diarrhea, constipation, melena, hematochezia, other - Medication Medications: Active Medications Generic Name Dose Route Start Last Admin Trade Name Freq PRN Reason Stop Dose Admin Acetaminophen 650 mg 09/01/19 07:57 09/08/19 15:05 Tylenol PO 650 mg Q4H PRN Administration Mild Pain (1-3) Albuterol/Ipratropium 3 ml 09/04/19 18:30 09/11/19 15:08 Duoneb NEB 3 ml [id number] TIANA Administration Amlodipine Besylate 5 mg 09/09/19 21:00 09/11/19 09:03 Norvasc PER TUBE 5 mg BID TIANA Administration Aspirin 81 mg 09/06/19 09:00 09/11/19 09:02 Aspirin Chewable PER TUBE 81 mg DAILY TIANA Administration Carvedilol 6.25 mg 09/10/19 17:00 09/11/19 16:01 Coreg PO 6.25 mg BID-WM TIANA Administration Cyanocobalamin 1,000 mcg 09/01/19 21:00 09/10/19 21:36 Vitamin B-12 PO 1,000 mcg HS TIANA Administration Furosemide 20 mg 09/09/19 09:00 09/11/19 14:31 Lasix PER TUBE 20 mg 0900,1400 TIANA Administration Heparin Sodium (Porcine) 5,000 units 09/05/19 21:00 09/11/19 09:03 Heparin SC 5,000 units BID TIANA Administration Hydralazine HCl 10 mg 09/05/19 14:41 09/09/19 15:44 Apresoline SLOW IVP 10 mg Q4H PRN Administration SBP GREATER THAN 160 Hydralazine HCl 50 mg 09/09/19 18:00 09/11/19 11:39 Apresoline PO 50 mg Q6HR TIANA Administration Hydralazine HCl 20 mg 09/09/19 17:06 09/10/19 12:22 Apresoline SLOW IVP 20 mg Q6H PRN Administration SBP Greater Than 180 Isosorbide Dinitrate 20 mg 09/11/19 15:00 09/11/19 15:59 Isordil PO 20 mg TID TIANA Administration Nitroglycerin 0.4 mg 08/31/19 13:03 09/01/19 07:02 Nitrostat PO 0.4 mg Q5MIN PRN Administration Chest Pain Pantoprazole Sodium 40 mg 09/09/19 09:00 09/11/19 09:02 Protonix PO 40 mg DAILY TIANA Administration Polyethylene Glycol 17 gm 09/04/19 09:00 09/11/19 09:03 Miralax PO 17 gm DAILY TIANA Administration Prednisone 20 mg 09/11/19 08:00 09/11/19 16:01 Prednisone PO 20 mg BID-WM TIANA Administration Scopolamine 1.5 mg 09/08/19 12:15 09/11/19 11:40 Transderm Scop TOP 1.5 mg Q3D TIANA Administration Senna/Docusate Sodium 1 tab 09/03/19 20:39 09/11/19 09:02 Senokot S PO 1 tab BID TIANA Administration Sodium Chloride 10 ml 09/03/19 08:44 09/07/19 19:19 Flush - Normal Saline IVF 10 ml PRN PRN Administration Saline Flush - Exam General Appearance: NAD Heart: RRR, no gallops Respiratory: no wheezes, no ronchi Gastrointestinal: non-tender, non-distended, normal bowel sounds Extremities: no cyanosis Neurological: no new deficit Hosp A/P - Plan DVT proph w/SCDs Acute hypoxic resp failure - intubated 09/03 - extubated 09/08 UTI - completed Atbx DESTIN on CKD 2 (Losartan dced) Bradycardia with hypotension/Code green on 09/03 - off Dopamine drip (BB/CCB dced ) Chest pain on admission - Prob due to symptomatic anemia 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
[2019-09-11] MEDS: Cyanocobalamin (Vitamin B-12) 1,000 MCG TAB PO SCH (21:05)
[2019-09-12 04:39] LABS: #Eosinphils 0.1 thou/uL (0.0-0.7); #Lymphocytes 2.6 thou/uL (1.20-3.40); #Monocytes 1.8 thou/uL (0.11-0.59); #Neutrophils 8.4 thou/uL (1.40-6.50); %Basophils 0.2 % (0.0-1.0); %Eosinophils 0.8 % (0.0-10.0); %Lymphocytes 20.3 % (21.0-51.0); %Monocytes 13.8 % (0.0-10.0); %Neutrophils 64.8 % (42.0-75.0); Mean Corpuscular HGB CONC 30.9 g/dL (32.0-36.0); Mean Corpuscular Hemoglobin 25.7 pg (27.0-31.0); Mean Corpuscular Volume 82.9 fL (78.0-98.0); Mean Platelet Volume 11.4 fL (7.4-10.4); Platelet Count 273 thou/uL (130-400); Red Blood Cell (RBC) Count 3.89 mill/uL (4.20-5.40)
[2019-09-12 04:52] LABS: Anion Gap 13 mmol/L (10-20); BUN (Urea Nitrogen) 48 mg/dL (9.8-20.1); Calc. Creatinine Clearance 68 mL/min (70-130); Calcium 8.8 mg/dL (7.8-10.44); Carbon Dioxide 24 mmol/L (23-31); Chloride 109 mmol/L (98-107); Estimated GFR-MDRD 86; Glucose 134 mg/dL (83-110); Potassium 4.7 mmol/L (3.5-5.1); Sodium 141 mmol/L (136-145)
[2019-09-12 05:04] LABS: Band 2 % (5-11); Eosinophils 1 % (0-10); Hypochromia SLIGHT = 6-15 cells (100X) (0-5/hpf); Lymphocytes 21 % (21-51); MDiff Complete? YES; Monocytes 11 % (0-10); Neutrophil 65 % (42-75); Nucleated RBC 1 % (0); Platelet Morphology Comment Appears Adequate; Target Cells SLIGHT = 2-5 cells (100X) (0-1/hpf)
[2019-09-12] MEDS: hydrALAZINE 25 MG TAB PO SCH ×4 (05:24→23:33)
[2019-09-12] MEDS: Amlodipine 5 MG TAB PER TUBE SCH ×2 (09:46→20:46)
[2019-09-12] MEDS: Senokot S 8.6-50 MG TAB PO SCH ×2 (09:46→20:46)
[2019-09-12] MEDS: predniSONE 20 MG TAB PO SCH ×2 (09:47→17:22)
[2019-09-12] MEDS: Isosorbide Dinitrate 20 MG TAB PO SCH ×3 (09:47→20:46)
[2019-09-12] MEDS: Carvedilol 6.25 MG TAB PO SCH ×2 (09:47→17:22)
[2019-09-12] MEDS: Aspirin Chewable 81 MG TAB PER TUBE SCH (09:47)
[2019-09-12] MEDS: Furosemide 20 MG TAB PER TUBE SCH ×2 (09:47→15:15)
[2019-09-12] MEDS: Pantoprazole 40 MG GRANULES PACKET PO SCH (09:47)
[2019-09-12] MEDS: Polyethylene Glycol 3350 17 GM Packet PO SCH (09:48)
[2019-09-12] MEDS: Heparin 5,000 UNITS/ML VIAL SC SCH ×2 (09:48→20:44)
--- NOTE | 2019-09-12 11:50 | PDOC.HOSPP ---
- Subjective Encounter Date: 09/12/19 Encounter Time: 11:48 Subjective: Sleeping. Will awaken a bit, but does not want to interact much. Discussed with her nurses. She does talk more with them. Has asked for coffee. - Objective Vital Signs & Weight: Vital Signs (12 hours) Temp Pulse Resp BP BP Pulse Ox 09/12/19 11:13 84 16 09/12/19 09:47 129/59 L 09/12/19 08:17 80 16 09/12/19 07:30 98.1 F 81 20 127/58 L 97 09/12/19 05:24 80 09/12/19 04:00 98.6 F 80 18 134/61 95 09/12/19 02:17 16 Weight Admit Weight 178 lb 9.2 oz Weight 184 lb 1.6 oz Most Recent Monitor Data Heart Rate from ECG 84 NIBP 160/88 NIBP BP-Mean 112 Respiration from ECG 14 SpO2 100 I&O: 09/11/19 09/12/19 09/13/19 06:59 06:59 06:59 Intake Total 1244 1050 Output Total 1050 700 Balance 194 350 Result Diagrams: 09/12/19 04:10 09/12/19 04:09 Additional Labs: Accuchecks 09/12/19 09/11/19 09/11/19 05:51 23:51 18:39 POC Glucose 130 H 177 H 183 H 09/11/19 13:06 POC Glucose 159 H Hospitalist ROS - Medication Medications: Active Medications Generic Name Dose Route Start Last Admin Trade Name Freq PRN Reason Stop Dose Admin Acetaminophen 650 mg 09/01/19 07:57 09/08/19 15:05 Tylenol PO 650 mg Q4H PRN Administration Mild Pain (1-3) Albuterol/Ipratropium 3 ml 09/04/19 18:30 09/12/19 11:13 Duoneb NEB 3 ml [id number] TIANA Administration Amlodipine Besylate 5 mg 09/09/19 21:00 09/12/19 09:46 Norvasc PER TUBE 5 mg BID TIANA Administration Aspirin 81 mg 09/06/19 09:00 09/12/19 09:47 Aspirin Chewable PER TUBE 81 mg DAILY TIANA Administration Carvedilol 6.25 mg 09/10/19 17:00 09/12/19 09:47 Coreg PO 6.25 mg BID-WM TIANA Administration Cyanocobalamin 1,000 mcg 09/01/19 21:00 09/11/19 21:05 Vitamin B-12 PO 1,000 mcg HS TIANA Administration Furosemide 20 mg 09/09/19 09:00 09/12/19 09:47 Lasix PER TUBE 20 mg 0900,1400 TIANA Administration Heparin Sodium (Porcine) 5,000 units 09/05/19 21:00 09/12/19 09:48 Heparin SC 5,000 units BID TIANA Administration Hydralazine HCl 10 mg 09/05/19 14:41 09/09/19 15:44 Apresoline SLOW IVP 10 mg Q4H PRN Administration SBP GREATER THAN 160 Hydralazine HCl 50 mg 09/09/19 18:00 09/12/19 05:24 Apresoline PO 50 mg Q6HR TIANA Administration Hydralazine HCl 20 mg 09/09/19 17:06 09/10/19 12:22 Apresoline SLOW IVP 20 mg Q6H PRN Administration SBP Greater Than 180 Isosorbide Dinitrate 20 mg 09/11/19 15:00 09/12/19 09:47 Isordil PO 20 mg TID TIANA Administration Nitroglycerin 0.4 mg 08/31/19 13:03 09/01/19 07:02 Nitrostat PO 0.4 mg Q5MIN PRN Administration Chest Pain Pantoprazole Sodium 40 mg 09/09/19 09:00 09/12/19 09:47 Protonix PO 40 mg DAILY TIANA Administration Polyethylene Glycol 17 gm 09/04/19 09:00 09/12/19 09:48 Miralax PO 17 gm DAILY TIANA Administration Prednisone 20 mg 09/11/19 08:00 09/12/19 09:47 Prednisone PO 20 mg BID-WM TIANA Administration Scopolamine 1.5 mg 09/08/19 12:15 09/11/19 11:40 Transderm Scop TOP 1.5 mg Q3D TIANA Administration Senna/Docusate Sodium 1 tab 09/03/19 20:39 09/12/19 09:46 Senokot S PO 1 tab BID TIANA Administration Sodium Chloride 10 ml 09/03/19 08:44 09/07/19 19:19 Flush - Normal Saline IVF 10 ml PRN PRN Administration Saline Flush - Exam General Appearance: NAD Heart: RRR, no murmur, no gallops, no rubs, normal peripheral pulses Respiratory: CTAB, no wheezes, no rales, no ronchi, normal chest expansion, no tachypnea, normal percussion Gastrointestinal: soft, non-tender, non-distended, normal bowel sounds, no palpable masses, no hepatomegaly, no splenomegaly, no bruit Extremities: no edema Skin: normal turgor Musculoskeletal: generalized weakness Psychiatric: somnolent Hosp A/P (1) Chest pain Code(s): R07.9 - CHEST PAIN, UNSPECIFIED Status: Acute (2) Anemia Code(s): D64.9 - ANEMIA, UNSPECIFIED Status: Acute (3) Gastric AVM Code(s): K31.819 - ANGIODYSPLASIA OF STOMACH AND DUODENUM WITHOUT BLEEDING Status: Acute (4) Acute encephalopathy Code(s): G93.40 - ENCEPHALOPATHY, UNSPECIFIED Status: Acute (5) Acute on chronic diastolic (congestive) heart failure Code(s): I50.33 - ACUTE ON CHRONIC DIASTOLIC (CONGESTIVE) HEART FAILURE Status : Acute (6) Acute respiratory failure with hypoxia Code(s): J96.01 - ACUTE RESPIRATORY FAILURE WITH HYPOXIA Status: Acute (7) COPD (chronic obstructive pulmonary disease) Status: Acute (8) Hypertension Code(s): I10 - ESSENTIAL (PRIMARY) HYPERTENSION Status: Chronic Qualifiers: Hypertension type: essential hypertension Qualified Code(s): I10 - Essential (primary) hypertension (9) Obesity (BMI 30.0-34.9) Code(s): E66.9 - OBESITY, UNSPECIFIED Status: Chronic (10) Dysphagia Code(s): R13.10 - DYSPHAGIA, UNSPECIFIED Status: Acute (11) Pulmonary hypertension Code(s): I27.20 - PULMONARY HYPERTENSION, UNSPECIFIED Status: Acute (12) UTI (urinary tract infection) Status: Acute (13) DESTIN (acute kidney injury) Code(s): N17.9 - ACUTE KIDNEY FAILURE, UNSPECIFIED Status: Acute (14) Bradycardia Code(s): R00.1 - BRADYCARDIA, UNSPECIFIED Status: Acute - Plan Stable. Not taking po's. NGT feeds. [employer] INSPECTOR REPAIRER following. Will need to readdress to determine her ability to swallow v. PEG consideration. Repeat echo. Had resp failure requiring intubation. Appeared to be volume overload, but echo from 08/12 had preserved EF and diastolic dysfunction noted. Also had pulm htn noted. CTA chest initially read as PE, bur follow read was negative for PE. Continue Coreg, Lasix, Isordil, hydralazine. Hgb stable. UTI with Klebsiella and Citrobacter. Completed abx. Renal function improved. Continue Duoneb, enteral steroids. Looking at DC planning, but feeding must be addressed.
[2019-09-12] MEDS: Cyanocobalamin (Vitamin B-12) 1,000 MCG TAB PO SCH (20:45)
[2019-09-13 04:35] LABS: #Eosinphils 0.1 thou/uL (0.0-0.7); #Lymphocytes 2.4 thou/uL (1.20-3.40); #Monocytes 1.5 thou/uL (0.11-0.59); #Neutrophils 8.4 thou/uL (1.40-6.50); %Basophils 0.3 % (0.0-1.0); %Eosinophils 0.5 % (0.0-10.0); %Lymphocytes 19.2 % (21.0-51.0); %Monocytes 12.3 % (0.0-10.0); %Neutrophils 67.8 % (42.0-75.0); Hemoglobin 9.8 g/dL (12.0-16.0); Mean Corpuscular HGB CONC 30.9 g/dL (32.0-36.0); Mean Corpuscular Hemoglobin 25.8 pg (27.0-31.0); Mean Corpuscular Volume 83.5 fL (78.0-98.0); Mean Platelet Volume 11.4 fL (7.4-10.4); Platelet Count 273 thou/uL (130-400); RBC Distribution Width 22.9 % (11.5-14.5); White Blood Cell (WBC) Count 12.4 thou/uL (4.8-10.8)
[2019-09-13 04:59] LABS: Anion Gap 14 mmol/L (10-20); BUN (Urea Nitrogen) 45 mg/dL (9.8-20.1); Calc. Creatinine Clearance 70 mL/min (70-130); Calcium 9.1 mg/dL (7.8-10.44); Carbon Dioxide 27 mmol/L (23-31); Chloride 107 mmol/L (98-107); Estimated GFR-MDRD 90; Glucose 126 mg/dL (83-110); Potassium 4.5 mmol/L (3.5-5.1); Sodium 143 mmol/L (136-145)
[2019-09-13] MEDS: hydrALAZINE 25 MG TAB PO SCH ×3 (05:26→18:04)
[2019-09-13] MEDS: Pantoprazole 40 MG GRANULES PACKET PO SCH (08:45)
[2019-09-13] MEDS: Isosorbide Dinitrate 20 MG TAB PO SCH ×3 (08:45→20:32)
[2019-09-13] MEDS: Amlodipine 5 MG TAB PER TUBE SCH (08:45)
[2019-09-13] MEDS: Carvedilol 6.25 MG TAB PO SCH ×2 (08:45→18:05)
[2019-09-13] MEDS: Aspirin Chewable 81 MG TAB PER TUBE SCH (08:45)
[2019-09-13] MEDS: Furosemide 20 MG TAB PER TUBE SCH ×2 (08:45→14:52)
[2019-09-13] MEDS: Senokot S 8.6-50 MG TAB PO SCH (08:46)
[2019-09-13] MEDS: Polyethylene Glycol 3350 17 GM Packet PO SCH (08:46)
[2019-09-13] MEDS: Heparin 5,000 UNITS/ML VIAL SC SCH ×2 (08:46→20:31)
[2019-09-13] MEDS: predniSONE 20 MG TAB PO SCH (08:46)
[2019-09-13] MEDS ORDERED: Senokot S 8.6-50 MG TAB PO PRN (15:07)
--- NOTE | 2019-09-13 15:11 | PDOC.HOSPP ---
- Subjective Encounter Date: 09/13/19 Subjective: Does not speak to me, but does answer my questions shaking/nodding her head. Denies problems. Indicates everything is ok. - Objective Vital Signs & Weight: Vital Signs (12 hours) Temp Pulse Resp BP Pulse Ox 09/13/19 14:28 80 16 09/13/19 11:20 98.8 F 77 18 124/58 L 93 L 09/13/19 10:29 78 16 09/13/19 08:45 86 09/13/19 08:00 94 L 09/13/19 07:51 86 16 09/13/19 07:41 77 16 138/63 94 L 09/13/19 04:16 98.3 F 83 17 135/63 92 L Weight Admit Weight 178 lb 9.191 oz Weight 182 lb 11.2 oz Most Recent Monitor Data Heart Rate from ECG 84 NIBP 160/88 NIBP BP-Mean 112 Respiration from ECG 14 SpO2 100 I&O: 09/12/19 09/13/19 09/14/19 06:59 06:59 06:59 Intake Total 1050 780 30 Output Total 700 500 Balance 350 280 30 Result Diagrams: 09/13/19 03:49 09/13/19 03:49 Additional Labs: Accuchecks 09/13/19 09/13/19 09/13/19 11:58 05:23 00:16 POC Glucose 225 H 140 H 192 H 09/12/19 16:06 POC Glucose 208 H Hospitalist ROS - Medication Medications: Active Medications Generic Name Dose Route Start Last Admin Trade Name Freq PRN Reason Stop Dose Admin Acetaminophen 650 mg 09/01/19 07:57 09/08/19 15:05 Tylenol PO 650 mg Q4H PRN Administration Mild Pain (1-3) Albuterol/Ipratropium 3 ml 09/04/19 18:30 09/13/19 14:28 Duoneb NEB 3 ml [id number] TIANA Administration Carvedilol 6.25 mg 09/10/19 17:00 09/13/19 08:45 Coreg PO 6.25 mg BID-WM TIANA Administration Cyanocobalamin 1,000 mcg 09/01/19 21:00 09/12/19 20:45 Vitamin B-12 PO 1,000 mcg HS TIANA Administration Heparin Sodium (Porcine) 5,000 units 09/05/19 21:00 09/13/19 08:46 Heparin SC 5,000 units BID TIANA Administration Hydralazine HCl 10 mg 09/05/19 14:41 09/09/19 15:44 Apresoline SLOW IVP 10 mg Q4H PRN Administration SBP GREATER THAN 160 Hydralazine HCl 50 mg 09/09/19 18:00 09/13/19 12:47 Apresoline PO 50 mg Q6HR TIANA Administration Hydralazine HCl 20 mg 09/09/19 17:06 09/10/19 12:22 Apresoline SLOW IVP 20 mg Q6H PRN Administration SBP Greater Than 180 Isosorbide Dinitrate 20 mg 09/11/19 15:00 09/13/19 15:00 Isordil PO 20 mg TID TIANA Administration Nitroglycerin 0.4 mg 08/31/19 13:03 09/01/19 07:02 Nitrostat PO 0.4 mg Q5MIN PRN Administration Chest Pain Pantoprazole Sodium 40 mg 09/09/19 09:00 09/13/19 08:45 Protonix PO 40 mg DAILY TIANA Administration Sodium Chloride 10 ml 09/03/19 08:44 09/12/19 20:46 Flush - Normal Saline IVF 10 ml PRN PRN Administration Saline Flush - Exam General Appearance: NAD General - other findings: Sleepy, but awakens to voice. Heart: RRR, no murmur, no gallops, no rubs, normal peripheral pulses Respiratory: CTAB, no wheezes, no rales, no ronchi, normal chest expansion, no tachypnea, normal percussion Gastrointestinal: soft, non-tender, non-distended, normal bowel sounds, no palpable masses, no hepatomegaly, no splenomegaly, no bruit Extremities: no cyanosis, no clubbing, no edema Skin: normal turgor Neurological: no new deficit Musculoskeletal: generalized weakness Hosp A/P (1) Acute respiratory failure with hypoxia Code(s): J96.01 - ACUTE RESPIRATORY FAILURE WITH HYPOXIA Status: Acute (2) Chest pain Code(s): R07.9 - CHEST PAIN, UNSPECIFIED Status: Resolved (3) Anemia Code(s): D64.9 - ANEMIA, UNSPECIFIED Status: Acute (4) Gastric AVM Code(s): K31.819 - ANGIODYSPLASIA OF STOMACH AND DUODENUM WITHOUT BLEEDING Status: Acute (5) Acute encephalopathy Code(s): G93.40 - ENCEPHALOPATHY, UNSPECIFIED Status: Acute (6) Acute on chronic diastolic (congestive) heart failure Code(s): I50.33 - ACUTE ON CHRONIC DIASTOLIC (CONGESTIVE) HEART FAILURE Status : Acute (7) COPD (chronic obstructive pulmonary disease) Status: Acute (8) Hypertension Code(s): I10 - ESSENTIAL (PRIMARY) HYPERTENSION Status: Chronic Qualifiers: Hypertension type: essential hypertension Qualified Code(s): I10 - Essential (primary) hypertension (9) Obesity (BMI 30.0-34.9) Code(s): E66.9 - OBESITY, UNSPECIFIED Status: Chronic (10) Dysphagia Code(s): R13.10 - DYSPHAGIA, UNSPECIFIED Status: Acute (11) Pulmonary hypertension Code(s): I27.20 - PULMONARY HYPERTENSION, UNSPECIFIED Status: Acute (12) UTI (urinary tract infection) Status: Acute (13) DESTIN (acute kidney injury) Code(s): N17.9 - ACUTE KIDNEY FAILURE, UNSPECIFIED Status: Acute (14) Bradycardia Code(s): R00.1 - BRADYCARDIA, UNSPECIFIED Status: Acute - Plan Stable. Able to advance to po's today. NGT out. Converted meds to po. Repeat echo confirms diastolic dysfunction. Had resp failure requiring intubation. Appeared to be volume overload, but echo had preserved EF and diastolic dysfunction noted. Also had pulm htn noted. CTA chest initially read as PE, bur follow read was negative for PE. Continue Coreg, Lasix, Isordil, hydralazine. Hgb stable. UTI with Klebsiella and Citrobacter. Completed abx. Renal function improved. Continue Duoneb, enteral steroids. Looking at DC planning now that she is taking po's. CM consult for post-acute care planning.
[2019-09-13] MEDS ORDERED: Furosemide 20 MG TAB PO SCH (15:30)
[2019-09-13] MEDS: Cyanocobalamin (Vitamin B-12) 1,000 MCG TAB PO SCH (20:31)
[2019-09-13] MEDS: Amlodipine 5 MG TAB PO SCH (20:32)
[2019-09-14] MEDS: hydrALAZINE 25 MG TAB PO SCH ×4 (01:18→17:42)
[2019-09-14] MEDS: Heparin 5,000 UNITS/ML VIAL SC SCH ×2 (08:36→20:40)
[2019-09-14] MEDS: Carvedilol 6.25 MG TAB PO SCH ×2 (08:37→17:41)
[2019-09-14] MEDS: Pantoprazole 40 MG GRANULES PACKET PO SCH (08:37)
[2019-09-14] MEDS: Aspirin Chewable 81 MG TAB PO SCH (08:37)
[2019-09-14] MEDS: Isosorbide Dinitrate 20 MG TAB PO SCH ×3 (08:37→20:37)
[2019-09-14] MEDS: predniSONE 20 MG TAB PO SCH (08:38)
[2019-09-14] MEDS: Amlodipine 5 MG TAB PO SCH ×2 (08:38→20:37)
[2019-09-14] MEDS: Furosemide 20 MG TAB PO SCH ×2 (08:38→15:19)
[2019-09-14] MEDS: Cyanocobalamin (Vitamin B-12) 1,000 MCG TAB PO SCH (20:37)
--- NOTE | 2019-09-14 20:58 | PDOC.HOSPP ---
- Subjective Encounter Date: 09/14/19 Subjective: More awake. Says she is doing well. - Objective Vital Signs & Weight: Vital Signs (12 hours) Temp Pulse Resp BP BP Pulse Ox 09/14/19 20:37 77 158/72 H 09/14/19 18:38 74 16 95 09/14/19 17:42 60 137/60 09/14/19 17:41 137/60 09/14/19 17:08 98.5 F 60 20 137/60 92 L 09/14/19 14:48 82 16 09/14/19 11:45 98.4 F 75 18 115/56 L 93 L 09/14/19 11:25 97.7 F 70 17 124/58 L 92 L 09/14/19 11:02 91 16 Weight Admit Weight 178 lb 9.191 oz Weight 186 lb Most Recent Monitor Data Heart Rate from ECG 84 NIBP 160/88 NIBP BP-Mean 112 Respiration from ECG 14 SpO2 100 I&O: 09/13/19 09/14/19 09/15/19 06:59 06:59 06:59 Intake Total 780 450 600 Output Total 500 1900 315 Balance 280 -1450 285 Result Diagrams: 09/13/19 03:49 09/13/19 03:49 Additional Labs: Accuchecks 09/14/19 09/14/19 09/13/19 17:22 05:50 23:17 POC Glucose 245 H 96 147 H Hospitalist ROS - Medication Medications: Active Medications Generic Name Dose Route Start Last Admin Trade Name Freq PRN Reason Stop Dose Admin Acetaminophen 650 mg 09/01/19 07:57 09/08/19 15:05 Tylenol PO 650 mg Q4H PRN Administration Mild Pain (1-3) Albuterol/Ipratropium 3 ml 09/04/19 18:30 09/14/19 18:38 Duoneb NEB 3 ml [id number] TIANA Administration Amlodipine Besylate 5 mg 09/13/19 21:00 09/14/19 20:37 Norvasc PO 5 mg BID TIANA Administration Aspirin 81 mg 09/14/19 09:00 09/14/19 08:37 Aspirin Chewable PO 81 mg DAILY TIANA Administration Carvedilol 6.25 mg 09/10/19 17:00 09/14/19 17:41 Coreg PO 6.25 mg BID-WM TIANA Administration Cyanocobalamin 1,000 mcg 09/01/19 21:00 09/14/19 20:37 Vitamin B-12 PO 1,000 mcg HS TIANA Administration Furosemide 20 mg 09/14/19 09:00 09/14/19 15:19 Lasix PO 20 mg 0900,1400 TIANA Administration Heparin Sodium (Porcine) 5,000 units 09/05/19 21:00 09/14/19 20:40 Heparin SC 5,000 units BID TIANA Administration Hydralazine HCl 10 mg 09/05/19 14:41 09/09/19 15:44 Apresoline SLOW IVP 10 mg Q4H PRN Administration SBP GREATER THAN 160 Hydralazine HCl 50 mg 09/09/19 18:00 09/14/19 17:42 Apresoline PO 50 mg Q6HR TIANA Administration Hydralazine HCl 20 mg 09/09/19 17:06 09/10/19 12:22 Apresoline SLOW IVP 20 mg Q6H PRN Administration SBP Greater Than 180 Isosorbide Dinitrate 20 mg 09/11/19 15:00 09/14/19 20:37 Isordil PO 20 mg TID TIANA Administration Nitroglycerin 0.4 mg 08/31/19 13:03 09/01/19 07:02 Nitrostat PO 0.4 mg Q5MIN PRN Administration Chest Pain Pantoprazole Sodium 40 mg 09/09/19 09:00 09/14/19 08:37 Protonix PO 40 mg DAILY TIANA Administration Prednisone 20 mg 09/14/19 08:00 09/14/19 08:38 Prednisone PO 20 mg QAM-WM TIANA Administration Sodium Chloride 10 ml 09/03/19 08:44 09/12/19 20:46 Flush - Normal Saline IVF 10 ml PRN PRN Administration Saline Flush - Exam General Appearance: NAD, awake alert Heart: RRR, no murmur, no gallops, no rubs, normal peripheral pulses Respiratory: CTAB, no wheezes, no rales, no ronchi, normal chest expansion, no tachypnea, normal percussion Gastrointestinal: soft, non-tender, non-distended, normal bowel sounds, no palpable masses, no hepatomegaly, no splenomegaly, no bruit Skin: normal turgor Psychiatric: normal affect, normal behavior, A&O x 3 Hosp A/P (1) Acute respiratory failure with hypoxia Code(s): J96.01 - ACUTE RESPIRATORY FAILURE WITH HYPOXIA Status: Acute (2) Chest pain Code(s): R07.9 - CHEST PAIN, UNSPECIFIED Status: Resolved (3) Anemia Code(s): D64.9 - ANEMIA, UNSPECIFIED Status: Acute (4) Gastric AVM Code(s): K31.819 - ANGIODYSPLASIA OF STOMACH AND DUODENUM WITHOUT BLEEDING Status: Acute (5) Acute encephalopathy Code(s): G93.40 - ENCEPHALOPATHY, UNSPECIFIED Status: Acute (6) Acute on chronic diastolic (congestive) heart failure Code(s): I50.33 - ACUTE ON CHRONIC DIASTOLIC (CONGESTIVE) HEART FAILURE Status : Acute (7) COPD (chronic obstructive pulmonary disease) Status: Acute (8) Hypertension Code(s): I10 - ESSENTIAL (PRIMARY) HYPERTENSION Status: Chronic Qualifiers: Hypertension type: essential hypertension Qualified Code(s): I10 - Essential (primary) hypertension (9) Obesity (BMI 30.0-34.9) Code(s): E66.9 - OBESITY, UNSPECIFIED Status: Chronic (10) Dysphagia Code(s): R13.10 - DYSPHAGIA, UNSPECIFIED Status: Acute (11) Pulmonary hypertension Code(s): I27.20 - PULMONARY HYPERTENSION, UNSPECIFIED Status: Acute (12) UTI (urinary tract infection) Status: Acute (13) DESTIN (acute kidney injury) Code(s): N17.9 - ACUTE KIDNEY FAILURE, UNSPECIFIED Status: Acute (14) Bradycardia Code(s): R00.1 - BRADYCARDIA, UNSPECIFIED Status: Acute - Plan Stable. Taking po's with modified diet. Converted meds to po. Repeat echo confirms diastolic dysfunction. Had resp failure requiring intubation. Appeared to be volume overload, but echo had preserved EF and diastolic dysfunction noted. Also had pulm htn noted. CTA chest initially read as PE, but follow read was negative for PE. Continue Coreg, Lasix, Isordil, hydralazine. Hgb stable. UTI with Klebsiella and Citrobacter. Completed abx. Renal function improved. Continue Duoneb, enteral steroids. Can likely DC steroids tomorrow. Looking at DC planning now that she is taking po's. CM consult for post-acute care planning.
--- NOTE | 2019-09-14 22:14 | PQF ---
DATE: 09-14-19 ATTN: DR. MICHAELA GIBBS Please exercise your independent, professional judgment in responding to the clarification form. Clinical indicators are provided on the bottom of this form for your review Please check appropriate box(s): [ ] Encephalopathy: Etiology: [ ] Hypertensive [ ] Metabolic [ ] Toxic [ ] Hypoxic [ ] Other (please specify) [ ] Transient Alteration of Awareness [ ] Other diagnosis [ ] Unable to determine In addition, please specify: Present on Admission (POA): [ ] Yes [ ] No [ ] Unable to determine For continuity of documentation, please document condition throughout progress notes and discharge summary. Thank You. CLINICAL INDICATORS - SIGNS / SYMPTOMS / LABS / RESULTS AND LOCATION IN EMR: PN DR. GIBBS 09-14-19: MORE AWAKE, ACUTE RESPIRATORY FAILURE WITH HYPOXIA, CP , ACUTE ANEMIA, GASTRIC AVM, ACUTE ENCEPHALOPATHY, ACUTE ON CHRONIC DIASTOLIC CHF, HTN, ACUTE COPD, PULMONARY HTN, DESTIN, UTI PN DR. GIBBS 09-13-19: ACUTE ENCEPHALOPATHY, ACUTE RESPIRATORY FAILURE WITH HYPOXIA, CP, ACUTE ANEMIA, GASTRIC AVM, ACUTE ON CHRONIC DIASTOLIC CHF, HTN, ACUTE COPD, PULMONARY HTN, DESTIN, UTI CONSULT NOTE DR. DUDLEY 09-05-19: CODE GREEN, BECAME LESS AND LESS RESPONSIVE, POORLY RESPONSIVE, I RECOMMEND IMMEDIATE INTUBATION FOR RESPIRATORY FAILURE RISK FACTORS / RESULTS AND LOCATION IN EMR: PN DR. GIBBS 09-13-19: ACUTE ENCEPHALOPATHY, ACUTE RESPIRATORY FAILURE WITH HYPOXIA, CP, ACUTE ANEMIA, GASTRIC AVM, ACUTE ON CHRONIC DIASTOLIC CHF, HTN, ACUTE COPD, PULMONARY HTN, DESTIN, UTI TREATMENTS / RESULTS AND LOCATION IN EMR: MAR: 09-09-19: [facility] PN DR. STALLWORTH 09-11-19: CONTINUE AMLODIPINE, CONTINUE HYDRALAZINE, COMPLETED ATBX, UNTUBATED 09-03-- EXTUBATED 09-08 (This form is maintained as a part of the permanent medical record) 2014 [employer], [employer]. All Rights Reserved [email or web address] Office: [phone] [facility] CENTERV[facility]
[2019-09-15] MEDS: hydrALAZINE 25 MG TAB PO SCH ×4 (02:49→17:18)
[2019-09-15] MEDS: Carvedilol 6.25 MG TAB PO SCH ×2 (09:21→17:18)
[2019-09-15] MEDS: Amlodipine 5 MG TAB PO SCH ×2 (09:21→20:33)
[2019-09-15] MEDS: predniSONE 20 MG TAB PO SCH (09:21)
[2019-09-15] MEDS: Isosorbide Dinitrate 20 MG TAB PO SCH ×3 (09:22→20:33)
[2019-09-15] MEDS: Furosemide 20 MG TAB PO SCH ×2 (09:22→14:25)
[2019-09-15] MEDS: Heparin 5,000 UNITS/ML VIAL SC SCH ×2 (09:22→20:33)
[2019-09-15] MEDS: Aspirin Chewable 81 MG TAB PO SCH (09:22)
[2019-09-15] MEDS: Pantoprazole 40 MG GRANULES PACKET PO SCH (09:23)
[2019-09-15 13:26] VITALS: BMI 33.6
--- NOTE | 2019-09-15 13:28 | PDOC.HOSPP ---
- Subjective Encounter Date: 09/15/19 Subjective: Doing ok. Much more awake. Denies any problems. - Objective Vital Signs & Weight: Vital Signs (12 hours) Temp Pulse Pulse Pulse Resp BP BP 09/15/19 12:21 97.5 F L 62 18 09/15/19 11:14 63 62 129/59 L 09/15/19 10:57 97.3 F L 63 18 09/15/19 07:55 97.7 F 69 16 09/15/19 07:03 09/15/19 07:00 76 16 09/15/19 05:34 70 124/58 L 09/15/19 03:46 98.5 F 70 17 09/15/19 02:49 75 130/85 09/15/19 01:29 79 16 BP BP Pulse Ox 09/15/19 12:21 136/61 96 09/15/19 11:14 139/63 09/15/19 10:57 129/59 L 97 09/15/19 07:55 134/63 93 L 09/15/19 07:03 97 09/15/19 07:00 97 09/15/19 05:34 09/15/19 03:46 124/58 L 92 L 09/15/19 02:49 09/15/19 01:29 97 Weight Admit Weight 178 lb 9.191 oz Weight 183 lb 14.4 oz Most Recent Monitor Data Heart Rate from ECG 84 NIBP 160/88 NIBP BP-Mean 112 Respiration from ECG 14 SpO2 100 I&O: 09/14/19 09/15/19 09/16/19 06:59 06:59 06:59 Intake Total 450 700 Output Total 1900 315 Balance -1450 385 Result Diagrams: 09/13/19 03:49 09/13/19 03:49 Additional Labs: Accuchecks 09/15/19 09/14/19 09/14/19 05:16 23:57 17:22 POC Glucose 101 133 H 245 H Hospitalist ROS - Medication Medications: Active Medications Generic Name Dose Route Start Last Admin Trade Name Freq PRN Reason Stop Dose Admin Acetaminophen 650 mg 09/01/19 07:57 09/08/19 15:05 Tylenol PO 650 mg Q4H PRN Administration Mild Pain (1-3) Albuterol/Ipratropium 3 ml 09/04/19 18:30 09/15/19 11:47 Duoneb NEB Not Given [id number] TIANA Amlodipine Besylate 5 mg 09/13/19 21:00 09/15/19 09:21 Norvasc PO 5 mg BID TIANA Administration Aspirin 81 mg 09/14/19 09:00 09/15/19 09:22 Aspirin Chewable PO 81 mg DAILY TIANA Administration Carvedilol 6.25 mg 09/10/19 17:00 09/15/19 09:21 Coreg PO 6.25 mg BID-WM TIANA Administration Cyanocobalamin 1,000 mcg 09/01/19 21:00 09/14/19 20:37 Vitamin B-12 PO 1,000 mcg HS TIANA Administration Furosemide 20 mg 09/14/19 09:00 09/15/19 09:22 Lasix PO 20 mg 0900,1400 TIANA Administration Heparin Sodium (Porcine) 5,000 units 09/05/19 21:00 09/15/19 09:22 Heparin SC 5,000 units BID TIANA Administration Hydralazine HCl 10 mg 09/05/19 14:41 09/09/19 15:44 Apresoline SLOW IVP 10 mg Q4H PRN Administration SBP GREATER THAN 160 Hydralazine HCl 50 mg 09/09/19 18:00 09/15/19 12:26 Apresoline PO 50 mg Q6HR TIANA Administration Hydralazine HCl 20 mg 09/09/19 17:06 09/10/19 12:22 Apresoline SLOW IVP 20 mg Q6H PRN Administration SBP Greater Than 180 Isosorbide Dinitrate 20 mg 09/11/19 15:00 09/15/19 09:22 Isordil PO 20 mg TID TIANA Administration Nitroglycerin 0.4 mg 08/31/19 13:03 09/01/19 07:02 Nitrostat PO 0.4 mg Q5MIN PRN Administration Chest Pain Pantoprazole Sodium 40 mg 09/09/19 09:00 09/15/19 09:23 Protonix PO 40 mg DAILY TIANA Administration Prednisone 20 mg 09/14/19 08:00 09/15/19 09:21 Prednisone PO 20 mg QAM-WM TIANA Administration Sodium Chloride 10 ml 09/03/19 08:44 09/12/19 20:46 Flush - Normal Saline IVF 10 ml PRN PRN Administration Saline Flush - Exam General Appearance: NAD, awake alert General - other findings: Much more awake. Talkative. Heart: RRR, no murmur, no gallops, no rubs, normal peripheral pulses Respiratory: CTAB, no wheezes, no rales, no ronchi, normal chest expansion, no tachypnea, normal percussion Gastrointestinal: soft, non-tender, non-distended, normal bowel sounds, no palpable masses, no hepatomegaly, no splenomegaly, no bruit Extremities: no cyanosis, no clubbing, no edema Musculoskeletal: generalized weakness Psychiatric: normal affect, normal behavior Hosp A/P (1) Acute respiratory failure with hypoxia Code(s): J96.01 - ACUTE RESPIRATORY FAILURE WITH HYPOXIA Status: Acute (2) Chest pain Code(s): R07.9 - CHEST PAIN, UNSPECIFIED Status: Resolved (3) Anemia Code(s): D64.9 - ANEMIA, UNSPECIFIED Status: Acute (4) Gastric AVM Code(s): K31.819 - ANGIODYSPLASIA OF STOMACH AND DUODENUM WITHOUT BLEEDING Status: Acute (5) Acute encephalopathy Code(s): G93.40 - ENCEPHALOPATHY, UNSPECIFIED Status: Acute (6) Acute on chronic diastolic (congestive) heart failure Code(s): I50.33 - ACUTE ON CHRONIC DIASTOLIC (CONGESTIVE) HEART FAILURE Status : Acute (7) COPD (chronic obstructive pulmonary disease) Status: Acute (8) Hypertension Code(s): I10 - ESSENTIAL (PRIMARY) HYPERTENSION Status: Chronic Qualifiers: Hypertension type: essential hypertension Qualified Code(s): I10 - Essential (primary) hypertension (9) Obesity (BMI 30.0-34.9) Code(s): E66.9 - OBESITY, UNSPECIFIED Status: Chronic (10) Dysphagia Code(s): R13.10 - DYSPHAGIA, UNSPECIFIED Status: Acute (11) Pulmonary hypertension Code(s): I27.20 - PULMONARY HYPERTENSION, UNSPECIFIED Status: Acute (12) UTI (urinary tract infection) Status: Acute (13) DESTIN (acute kidney injury) Code(s): N17.9 - ACUTE KIDNEY FAILURE, UNSPECIFIED Status: Acute (14) Bradycardia Code(s): R00.1 - BRADYCARDIA, UNSPECIFIED Status: Acute - Plan Stable. Taking po's with modified diet. Converted meds to po. Will have MUSEUM OR ZOO DIRECTOR re-evaluate her now that she fully alert. Repeat echo confirms diastolic dysfunction. Had resp failure requiring intubation. Appeared to be volume overload, but echo had preserved EF and diastolic dysfunction noted. Also had pulm htn noted. CTA chest initially read as PE, but follow read was negative for PE. Continue Coreg, Lasix, Isordil, hydralazine. Hgb stable. UTI with Klebsiella and Citrobacter. Completed abx. Renal function improved. Continue Duoneb. DC steroids. Looking at DC planning now that she is taking po's. CM consult for post-acute care planning. Patient's daughter requested referral to [facility].
[2019-09-15] MEDS: Cyanocobalamin (Vitamin B-12) 1,000 MCG TAB PO SCH (20:33)
[2019-09-16] MEDS: hydrALAZINE 25 MG TAB PO SCH ×4 (00:28→18:39)
[2019-09-16] MEDS: Carvedilol 6.25 MG TAB PO SCH ×2 (10:00→16:55)
[2019-09-16] MEDS: predniSONE 20 MG TAB PO SCH (10:00)
[2019-09-16] MEDS: Heparin 5,000 UNITS/ML VIAL SC SCH (10:01)
[2019-09-16] MEDS: Aspirin Chewable 81 MG TAB PO SCH (10:01)
[2019-09-16] MEDS: Furosemide 20 MG TAB PO SCH ×2 (10:01→14:31)
[2019-09-16] MEDS: Amlodipine 5 MG TAB PO SCH (10:01)
[2019-09-16] MEDS: Pantoprazole 40 MG GRANULES PACKET PO SCH (10:02)
[2019-09-16] MEDS: Isosorbide Dinitrate 20 MG TAB PO SCH ×2 (10:02→14:31)
--- NOTE | 2019-09-16 14:30 | PDOC.HOSPP ---
- Subjective Encounter Date: 09/16/19 Subjective: No complaints. Says she is eating well. Does not recall all that is wrong with her. - Objective Vital Signs & Weight: Vital Signs (12 hours) Temp Pulse Resp BP BP Pulse Ox 09/16/19 12:07 68 138/63 09/16/19 11:08 97.7 F 74 20 123/56 L 96 09/16/19 10:39 74 16 95 09/16/19 08:10 97.8 F 85 20 146/67 H 93 L 09/16/19 06:49 88 L 09/16/19 06:46 80 16 88 L 09/16/19 05:14 77 09/16/19 04:00 98.2 F 77 18 178/74 H 92 L Weight Admit Weight 178 lb 9.191 oz Weight 184 lb Most Recent Monitor Data Heart Rate from ECG 84 NIBP 160/88 NIBP BP-Mean 112 Respiration from ECG 14 SpO2 100 I&O: 09/15/19 09/16/19 09/17/19 06:59 06:59 06:59 Intake Total 700 720 Output Total 315 551 Balance 385 169 Result Diagrams: 09/13/19 03:49 09/13/19 03:49 Hospitalist ROS - Medication Medications: Active Medications Generic Name Dose Route Start Last Admin Trade Name Freq PRN Reason Stop Dose Admin Acetaminophen 650 mg 09/01/19 07:57 09/08/19 15:05 Tylenol PO 650 mg Q4H PRN Administration Mild Pain (1-3) Albuterol/Ipratropium 3 ml 09/04/19 18:30 09/16/19 10:39 Duoneb NEB 3 ml [id number] TIANA Administration Amlodipine Besylate 5 mg 09/13/19 21:00 09/16/19 10:01 Norvasc PO 5 mg BID TIANA Administration Aspirin 81 mg 09/14/19 09:00 09/16/19 10:01 Aspirin Chewable PO 81 mg DAILY TIANA Administration Carvedilol 6.25 mg 09/10/19 17:00 09/16/19 10:00 Coreg PO 6.25 mg BID-WM TIANA Administration Cyanocobalamin 1,000 mcg 09/01/19 21:00 09/15/19 20:33 Vitamin B-12 PO 1,000 mcg HS TIANA Administration Furosemide 20 mg 09/14/19 09:00 09/16/19 10:01 Lasix PO 20 mg 0900,1400 TIANA Administration Heparin Sodium (Porcine) 5,000 units 09/05/19 21:00 09/16/19 10:01 Heparin SC 5,000 units BID TIANA Administration Hydralazine HCl 10 mg 09/05/19 14:41 09/09/19 15:44 Apresoline SLOW IVP 10 mg Q4H PRN Administration SBP GREATER THAN 160 Hydralazine HCl 50 mg 09/09/19 18:00 09/16/19 12:07 Apresoline PO 50 mg Q6HR TIANA Administration Hydralazine HCl 20 mg 09/09/19 17:06 09/10/19 12:22 Apresoline SLOW IVP 20 mg Q6H PRN Administration SBP Greater Than 180 Isosorbide Dinitrate 20 mg 09/11/19 15:00 09/16/19 10:02 Isordil PO 20 mg TID TIANA Administration Nitroglycerin 0.4 mg 08/31/19 13:03 09/01/19 07:02 Nitrostat PO 0.4 mg Q5MIN PRN Administration Chest Pain Pantoprazole Sodium 40 mg 09/09/19 09:00 09/16/19 10:02 Protonix PO 40 mg DAILY TIANA Administration Prednisone 20 mg 09/14/19 08:00 09/16/19 10:00 Prednisone PO 20 mg QAM-WM TIANA Administration Sodium Chloride 10 ml 09/03/19 08:44 09/12/19 20:46 Flush - Normal Saline IVF 10 ml PRN PRN Administration Saline Flush - Exam General Appearance: NAD, awake alert Heart: RRR, no murmur, no gallops, no rubs, normal peripheral pulses Respiratory: CTAB, no wheezes, no rales, no ronchi, normal chest expansion, no tachypnea, normal percussion Gastrointestinal: soft, non-tender, non-distended, normal bowel sounds, no palpable masses, no hepatomegaly, no splenomegaly, no bruit Musculoskeletal: generalized weakness Psychiatric: normal affect, normal behavior Hosp A/P (1) Acute respiratory failure with hypoxia Code(s): J96.01 - ACUTE RESPIRATORY FAILURE WITH HYPOXIA Status: Acute (2) Chest pain Code(s): R07.9 - CHEST PAIN, UNSPECIFIED Status: Resolved (3) Anemia Code(s): D64.9 - ANEMIA, UNSPECIFIED Status: Acute (4) Gastric AVM Code(s): K31.819 - ANGIODYSPLASIA OF STOMACH AND DUODENUM WITHOUT BLEEDING Status: Acute (5) Acute encephalopathy Code(s): G93.40 - ENCEPHALOPATHY, UNSPECIFIED Status: Acute (6) Acute on chronic diastolic (congestive) heart failure Code(s): I50.33 - ACUTE ON CHRONIC DIASTOLIC (CONGESTIVE) HEART FAILURE Status : Acute (7) COPD (chronic obstructive pulmonary disease) Status: Acute (8) Hypertension Code(s): I10 - ESSENTIAL (PRIMARY) HYPERTENSION Status: Chronic Qualifiers: Hypertension type: essential hypertension Qualified Code(s): I10 - Essential (primary) hypertension (9) Obesity (BMI 30.0-34.9) Code(s): E66.9 - OBESITY, UNSPECIFIED Status: Chronic (10) Dysphagia Code(s): R13.10 - DYSPHAGIA, UNSPECIFIED Status: Acute (11) Pulmonary hypertension Code(s): I27.20 - PULMONARY HYPERTENSION, UNSPECIFIED Status: Acute (12) UTI (urinary tract infection) Status: Acute (13) DESTIN (acute kidney injury) Code(s): N17.9 - ACUTE KIDNEY FAILURE, UNSPECIFIED Status: Acute (14) Bradycardia Code(s): R00.1 - BRADYCARDIA, UNSPECIFIED Status: Acute - Plan Stable. Taking po's with modified diet. Converted meds to po. Upgraded to chopped foods, thin liquids with straw. Had resp failure requiring intubation. Appeared to be volume overload, but echo had preserved EF and diastolic dysfunction noted. Also had pulm htn noted. CTA chest initially read as PE, but follow read was negative for PE. Continue Coreg, Lasix, Isordil, hydralazine. Hgb stable. UTI with Klebsiella and Citrobacter. Completed abx. Renal function improved. Continue Duoneb. DC'd steroids. Looking at DC planning now that she is taking po's. CM consult for post-acute care planning. Patient's daughter requested referral to [facility].
[2019-09-16 17:10] VITALS: BP 128/60; TEMP 98.4
== END 2019-09-16 18:15 | DRG 377 ==
LOC: ERS 11:02 → OBSVTOIN 13:04 → 2SW 13:04 → 2NO 09-03 17:27 → CCU 09-04 15:28 → 2NO 09-10 18:03
PROVIDERS: ADMIT Internal Medicine; ATTEND Internal Medicine
PROC: 0W3P8ZZ Control Bleeding in Gastrointestinal Tract, Via Natural or Artificial Opening Endoscopic (ICD-10-PCS; principal; 2019-09-03)
PROC: 30233N1 Transfusion of Nonautologous Red Blood Cells into Peripheral Vein, Percutaneous Approach (ICD-10-PCS; 2019-09-03)
PROC: 0BH18EZ Insertion of Endotracheal Airway into Trachea, Via Natural or Artificial Opening Endoscopic (ICD-10-PCS; 2019-09-04)
PROC: 5A1955Z Respiratory Ventilation, Greater than 96 Consecutive Hours (ICD-10-PCS; 2019-09-04)
PROC: 3E033XZ Introduction of Vasopressor into Peripheral Vein, Percutaneous Approach (ICD-10-PCS; 2019-09-04)
DX: K31.811 Angiodysplasia of stomach and duodenum with bleeding (principal); J96.01 Acute respiratory failure with hypoxia; I50.33 Acute on chronic diastolic (congestive) heart failure; I13.0 Hypertensive heart and chronic kidney disease with heart failure and stage 1 through stage 4 chronic kidney disease, or unspecified chronic kidney disease; N39.0 Urinary tract infection, site not specified; N17.9 Acute kidney failure, unspecified; E87.1 Hypo-osmolality and hyponatremia; G93.40 Encephalopathy, unspecified; R35.0 Frequency of micturition; F17.210 Nicotine dependence, cigarettes, uncomplicated; E66.9 Obesity, unspecified; N18.2 Chronic kidney disease, stage 2 (mild); I73.9 Peripheral vascular disease, unspecified; D63.1 Anemia in chronic kidney disease; D50.9 Iron deficiency anemia, unspecified; D69.6 Thrombocytopenia, unspecified; J44.9 Chronic obstructive pulmonary disease, unspecified; I27.20 Pulmonary hypertension, unspecified; K44.9 Diaphragmatic hernia without obstruction or gangrene; K29.70 Gastritis, unspecified, without bleeding; R13.10 Dysphagia, unspecified; I95.9 Hypotension, unspecified; B96.1 Klebsiella pneumoniae [K. pneumoniae] as the cause of diseases classified elsewhere; R00.1 Bradycardia, unspecified; B96.89 Other specified bacterial agents as the cause of diseases classified elsewhere; Z90.710 Acquired absence of both cervix and uterus; Z79.82 Long term (current) use of aspirin; Z79.899 Other long term (current) drug therapy; Z68.33 Body mass index [BMI] 33.0-33.9, adult; Z78.1 Physical restraint status; Z95.828 Presence of other vascular implants and grafts
CPT/HCPCS: 36415; 36416; 36430; 71045; 74018; 76770; 80048; 80053; 81001; 82274; 82550; 82553; 82607; 82728; 82746; 82805; 83540; 83550; 83735; 83880; 84443; 84484; 85007; 85014; 85018; 85025; 85027; 85046; 85049; 86850; 86900; 86901; 87077; 87086; 87186; 93005; 93010; 93306; 94002; 94003; 94640; 94760; C9113; J0360; J0461; J0696; J1610; J1644; J1940; J2001; J2060; J2270; J2704; J2916; J2920; J2930; J3490; J7512; J7620; P9016

== ENCOUNTER 2019-09-20 23:38 | Inpatient (IN) | payer MEDICARE, OTHER ==
[2019-09-21 00:58] LABS: Mean Corpuscular HGB CONC 31.9 g/dL (32.0-36.0); Mean Corpuscular Hemoglobin 26.7 pg (27.0-31.0); Mean Corpuscular Volume 83.5 fL (78.0-98.0); Mean Platelet Volume 11.5 fL (7.4-10.4); Platelet Count 254 thou/uL (130-400); RBC Distribution Width 24.2 % (11.5-14.5); Red Blood Cell (RBC) Count 3.75 mill/uL (4.20-5.40); White Blood Cell (WBC) Count 12.1 thou/uL (4.8-10.8)
[2019-09-21 01:04] LABS: ALT (SGPT) 16 U/L (8-55); AST (SGOT) 26 U/L (5-34); Albumin 3.4 g/dL (3.4-4.8); Alkaline Phosphatase 67 U/L (40-110); Anion Gap 14 mmol/L (10-20); BUN (Urea Nitrogen) 12 mg/dL (9.8-20.1); Bilirubin, Total 0.6 mg/dL (0.2-1.2); Calc. Creatinine Clearance 0 mL/min (70-130); Calcium 8.5 mg/dL (7.8-10.44); Carbon Dioxide 24 mmol/L (23-31); Chloride 104 mmol/L (98-107); Estimated GFR-MDRD Greater than 90; Globulin 3.2 g/dL (2.4-3.5); Glucose 111 mg/dL (83-110); Potassium 4.5 mmol/L (3.5-5.1); Protein, Total 6.6 g/dL (6.0-8.3); Sodium 137 mmol/L (136-145)
[2019-09-21 01:24] LABS: Bilirubin Negative (Negative); Blood, Urine Negative (Negative); Clarity Clear (Clear); Glucose, Urine (Dipstick) Normal (Negative); Leukocyte Negative Leu/uL (Negative); Nitrite Negative (Negative); Protein, Urine (Dipstick) 10 mg/dL (Neg-Trace)
[2019-09-21] MEDS ORDERED: Vancomycin 1 GM/200 ML BAG ONE (01:35)
[2019-09-21] MEDS ORDERED: Cefepime 2 GM VIAL ONE (01:35)
[2019-09-21] MEDS ORDERED: Acetaminophen 650 MG Suppository ONE (01:35)
[2019-09-21 01:40] LABS: #Basophils 0.1 thou/uL (0.0-0.2); #Eosinphils 0.9 thou/uL (0.0-0.7); #Monocytes 0.9 thou/uL (0.11-0.59); #Neutrophils 9.2 thou/uL (1.40-6.50); %Basophils 0.8 % (0.0-1.0); %Eosinophils 7.1 % (0.0-10.0); %Lymphocytes 8.6 % (21.0-51.0); %Monocytes 7.7 % (0.0-10.0); %Neutrophils 75.9 % (42.0-75.0); Anisocytosis MODERATE=16-30 cells (100X) (0-5/hpf); Large Platelets SLIGHT; MDiff Complete? YES; Platelet Morphology Comment Appears Adequate; Schistocytes SLIGHT = 2-5 cells (100X) (0-1/hpf)
[2019-09-21] MEDS ORDERED: Guaifenesin DM 100-10/5 ML UDCUP PO PRN (02:48)
[2019-09-21] MEDS ORDERED: Acetaminophen 325 MG TAB PO PRN (02:48)
[2019-09-21] MEDS ORDERED: Dextrose 5 %-0.45 % NaCl 1,000 ML IV SCH ×2 (03:00)
[2019-09-21 03:42] LABS: Anion Gap 10 mmol/L (10-20); BUN (Urea Nitrogen) 10 mg/dL (9.8-20.1); Calc. Creatinine Clearance 0 mL/min (70-130); Calcium 7.8 mg/dL (7.8-10.44); Carbon Dioxide 24 mmol/L (23-31); Chloride 107 mmol/L (98-107); Estimated GFR-MDRD Greater than 90; Glucose 128 mg/dL (83-110); Potassium 3.7 mmol/L (3.5-5.1); Sodium 137 mmol/L (136-145)
[2019-09-21 03:43] LABS: Hemoglobin 8.9 g/dL (12.0-16.0); Mean Corpuscular HGB CONC 32.7 g/dL (32.0-36.0); Mean Corpuscular Hemoglobin 27.2 pg (27.0-31.0); Mean Corpuscular Volume 83.2 fL (78.0-98.0); Mean Platelet Volume 11.1 fL (7.4-10.4); Platelet Count 220 thou/uL (130-400); Red Blood Cell (RBC) Count 3.25 mill/uL (4.20-5.40); White Blood Cell (WBC) Count 10.3 thou/uL (4.8-10.8)
[2019-09-21 03:47] LABS: Troponin I 0.027 ng/mL (< 0.028)
[2019-09-21 04:13] LABS: #Basophils 0.1 thou/uL (0.0-0.2); #Eosinphils 0.7 thou/uL (0.0-0.7); #Monocytes 0.8 thou/uL (0.11-0.59); #Neutrophils 7.7 thou/uL (1.40-6.50); %Basophils 0.8 % (0.0-1.0); %Eosinophils 6.9 % (0.0-10.0); %Lymphocytes 9.8 % (21.0-51.0); %Neutrophils 74.5 % (42.0-75.0); Anisocytosis MODERATE=16-30 cells (100X) (0-5/hpf); Large Platelets SLIGHT; MDiff Complete? YES; Platelet Morphology Comment Appears Adequate; Schistocytes SLIGHT = 2-5 cells (100X) (0-1/hpf)
[2019-09-21 05:20] VITALS: BMI 39.8
--- NOTE | 2019-09-21 05:38 | HP ---
CHIEF COMPLAINT: Fever and low oxygen saturation. HISTORY OF PRESENT ILLNESS: Ms. Billings is an 89-year-old female with past medical history of congestive heart failure, diastolic; hypertension; anemia; pulmonary hypertension; dysphagia; peripheral vascular disease; GERD; among others was brought to the emergency room from intermediate with altered mental status, shortness of breath, fever, and hypoxia. The patient was having oxygen saturation in the 80s. The patient was febrile. Had temperature of 101.6. Lab work showed elevated WBC count of 12.1. BNP is 97, lactic acid 0.8. Septic workup done in the ED including viral panel and COVID-2019 testing. The patient is started on IV antibiotics. The patient is being admitted to hospital for further management. As per family, the patient is awake, alert, and oriented x4 at her baseline. Now, she is awake, alert, and oriented only x1. PAST MEDICAL HISTORY: As mentioned above in the history of present illness. PAST SURGICAL HISTORY: 1. Hysterectomy. 2. Stent placement in the left leg for poor circulation. SOCIAL HISTORY: The patient uses tobacco, smokes cigarettes, half pack a day for 30 years. No history of alcohol drinking or drug abuse. FAMILY HISTORY: Reviewed and noncontributory. ALLERGIES: NO KNOWN ALLERGIES. CURRENT HOME MEDICATIONS: Please see home medication reconciliation form for updated medications. REVIEW OF SYSTEMS: The patient is unable to give good history at this time due to altered mental status. PHYSICAL EXAMINATION: GENERAL: The patient is awake, in [id number] respiratory distress. VITAL SIGNS: Blood pressure is 157/71, pulse 74, respiratory rate is 24, temperature of 101.6, and oxygen saturation is 99% on 2 L/minute nasal cannula. HEAD AND NECK: Normocephalic, atraumatic. Neck is supple. CHEST: Coarse bilateral breath sounds. Respirations are labored. HEART: S1 and S2. Regular. ABDOMEN: Soft, nontender. Bowel sounds present. NEUROLOGIC: Awake, alert, oriented x1. Moving extremities. PSYCH: Unable to assess. EXTREMITIES: No clubbing, no cyanosis. LABORATORY DATA: As mentioned above in the history of present illness. IMAGING DATA: CTA of the chest done, results are pending at the time of this dictation. CT of the brain done, results are pending at the time of this dictation. ASSESSMENT: 1. Sepsis. 2. Pneumonia, healthcare associated. The patient was recently in the hospital, but cannot rule out viral pneumonia. 3. Suspected COVID-2019 infection. 4. Congestive heart failure, chronic, diastolic. 5. Anemia. 6. Pulmonary hypertension. 7. Chronic obstructive pulmonary disease/cigarette smoker. PLAN: 1. Admit. 2. Telemonitoring. 3. Septic workup including blood cultures, viral panel, and COVID-2019 testing. 4. Isolation precautions, droplet, and contact. 5. Fall precautions. 6. Cautious IV fluid hydration for now, reassess after reviewing CTA of the chest. 7. IV antibiotics for now, reassess in a.m. 8. Follow CTA of the chest results. 9. Follow CT of the brain results. 10. Reconcile home medications. 11. DVT prophylaxis as appropriate. 12. Expected length of stay, 2 midnights or more. Job ID: [id number]
[2019-09-21] MEDS ORDERED: FLU VACC TS2019-20(65YR UP)/PF 180 MCG/0.5 ML SYRINGE IM ONE (07:45)
--- NOTE | 2019-09-21 07:47 | CT ---
PRELIMINARY REPORT/[facility]/EMERGENCY AFTER HOURS PROCEDURE: History: Fever, hypoxia. CTA chest with 100 cc Isovue-370 IV contrast. Comparison: 07/30/2019. Findings: Atherosclerotic thoracic aorta is intact without aneurysm or dissection. The heart is mild ly enlarged. Coronary artery disease. No pericardial effusion. Mildly enlarged mediastinal lymph n odes. No evidence of PE. Interval resolution of the right upper lobe pulmonary emboli from previous exam. Basilar atelectatic changes. Trace bilateral pleural effusions. Scattered small areas of groundglas s airspace opacity seen bilaterally. Areas of mild interlobular and intralobular septal thickening. Scattered calcified granulomata. Visualized upper abdominal structures are unremarkable. Osteopenia with degenerative changes of the spine. Impression: 1. No evidence of PE. 2. Patchy areas of groundglass airspace disease with intralobular and interlobular septal thickening bilaterally. Findings are nonspecific. Given cardiomegaly and pleural effusions, findings could re late to mild pulmonary edema in the setting of CHF. However, infectious etiologies could have this a ppearance as well. 3. Trace bilateral pleural effusions, decreased from previous exam. 4. Mild cardiomegaly with coronary artery disease. ELECTRONICALLY SIGNED BY: Amadou Aguilar MD Sep 21, 2019 2:45:55 AM CDT This report is intended for review by the ordering physician only, in accordance of law. If you recei ve this report in error, please call [facility] at [phone]. FINAL REPORT CT PULMONARY ANGIOGRAM WITH IV CONTRAST AND 3D POSTPROCESSING: I agree with the preliminary report given by Dr. Amadou Aguilar [facility]. POS: CODY
--- NOTE | 2019-09-21 07:49 | CT ---
PRELIMINARY REPORT/[facility]/EMERGENCY AFTER HOURS PROCEDURE: Receipt of this report by the clinical staff was confirmed with MIRNA STOKES MD by Itz ulloa on Sep 21, 2019 02:49:00 CDT. Addendum electronically signed by Marlen ulloa on September 21, 2019 2:49:07 AM CDT EXAM: CT Head Without Intravenous Contrast. CLINICAL HISTORY: Patient here for fever, hypoxia. Patient is in a nursing facility. Is not able to give us history. [facility] was not able to give a history of why the patient was at the senior living or what her ment al status is at baseline to EMS. They did give her a breathing treatment at the senior living. Patient was satting in the 80s. Patient was also febrile. EMS put her on oxygen. TECHNIQUE: Axial computed tomography images of the head/brain without intravenous contrast. COMPARISON: None provided. FINDINGS: BRAIN: Right subinsular and right frontal white matter hypodensity compatible with gliosis from old p rior infarct. Subtle hypodensity within the right thalamus. No mass, mass-effect or midline shift. No intracranial hemorrhage. Enlargement of ventricles and sulci is compatible with age-related cerebral atrophy. VENTRICLES: No hydrocephalus. ORBITS: The orbits are unremarkable. SINUSES AND MASTOIDS: Air-fluid level and mild mucosal thickening within the right maxillary sinus an d bilateral sphenoid sinuses. SOFT TISSUES: No significant facial or scalp soft tissue swelling evident. No radiopaque foreign body is seen. BONES: No acute skull fracture. IMPRESSION: 1. Subtle hypodensity within the right thalamus. This could represent sequelae of old insult, however subacute infarct not entirely excluded. This could be further evaluated the MRI as clinically warran stacy. 2. 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 3. No acute intracranial hemorrhage. 4. Paranasal sinus disease. ELECTRONICALLY SIGNED BY: Graham Guevara M.D. Sep 21, 2019 2:45:51 AM CDT This report is intended for review by the ordering physician only, in accordance of law. If you recei ve this report in error, please call [facility] at [phone]. FINAL REPORT CT BRAIN WITHOUT CONTRAST: I agree with the preliminary report given by Dr. Graham Guevara of [facility]. POS: CODY
--- NOTE | 2019-09-21 08:08 | RAD ---
PORTABLE CHEST 1 VIEW: DATE: 09/21/2019. TIME: 12:05 AM. HISTORY: Respiration symptoms. Fever, hypoxia. COMPARISON: 09/09/2019. FINDINGS/IMPRESSION: There has been interval removal of the endotracheal tube and nasogastric tubes. The heart size is en larged. Evidence of old granulomatous disease is again seen. There is pulmonary vascular congestion . No pneumothoraces or large effusions identified. POS: M[facility]
[2019-09-21] MEDS: Famotidine/PF 20 mg/2ml Vial SLOW IVP SCH ×2 (08:27→21:16)
[2019-09-21] MEDS: Heparin 5,000 UNITS/ML VIAL SC SCH ×2 (08:34→21:15)
[2019-09-21] MEDS ORDERED: Vancomycin 1 GM in Premix Bag 1 BAG IVPB SCH (09:00)
[2019-09-21] MEDS ORDERED: Prevnar 13-Val Conj/PF 0.5 ML SYRINGE IM ONE (09:00)
[2019-09-21] MEDS ORDERED: Iopamidol-370 76% 500 ML 1 ML ONE (09:58)
[2019-09-21] MEDS ORDERED: Polyethylene Glycol 3350 17 GM Packet PO PRN (11:44)
--- NOTE | 2019-09-21 11:47 | PDOC.HOSPP ---
- Subjective Encounter Date: 09/21/19 Encounter Time: 11:00 Subjective: no sob, is resting comfortably on nasal canula oxygen is very weak to mobilize her legs on bed follows verbal stimuli to some extent. - Objective Vital Signs & Weight: Vital Signs (12 hours) Temp Pulse Resp BP BP Pulse Ox 09/21/19 08:29 97.3 F L 64 18 155/67 H 94 L 09/21/19 05:13 97.2 F L 69 16 146/63 H 93 L 09/21/19 05:10 77 L Weight Weight 204 lb Result Diagrams: 09/21/19 03:15 09/21/19 03:15 Hospitalist ROS - Medication Medications: Active Medications Generic Name Dose Route Start Last Admin Trade Name Freq PRN Reason Stop Dose Admin Famotidine 20 mg 09/21/19 09:00 09/21/19 08:27 Pepcid SLOW IVP 20 mg Q12HR TIANA Administration Heparin Sodium (Porcine) 5,000 units 09/21/19 09:00 09/21/19 08:34 Heparin SC 5,000 units BID TIANA Administration Sodium Chloride 10 ml 09/21/19 09:00 09/21/19 08:28 Flush - Normal Saline IVF 10 ml Q12HR TIANA Administration - Exam General Appearance: awake alert Eye: PERRL, anicteric sclera ENT: no oropharyngeal lesions, moist mucosa Neck: supple, no JVD Heart: RRR, no murmur Respiratory: no wheezes, rales, rhonchi Gastrointestinal: soft, non-tender, normal bowel sounds Extremities: no cyanosis, 2+ LE edema Neurological: cranial nerve grossly intact, no focal deficits Hosp A/P (1) Aspiration pneumonia Code(s): J69.0 - PNEUMONITIS DUE TO INHALATION OF FOOD AND VOMIT Status: Suspected (2) Acute encephalopathy Code(s): G93.40 - ENCEPHALOPATHY, UNSPECIFIED Status: Acute (3) Acute on chronic diastolic (congestive) heart failure Code(s): I50.33 - ACUTE ON CHRONIC DIASTOLIC (CONGESTIVE) HEART FAILURE Status : Acute (4) Acute respiratory failure with hypoxia Code(s): J96.01 - ACUTE RESPIRATORY FAILURE WITH HYPOXIA Status: Acute (5) Anemia Code(s): D64.9 - ANEMIA, UNSPECIFIED Status: Chronic (6) COPD (chronic obstructive pulmonary disease) Status: Acute Qualifiers: COPD type: COPD with acute exacerbation Qualified Code(s): J44.1 - Chronic obstructive pulmonary disease with (acute) exacerbation (7) Dysphagia Code(s): R13.10 - DYSPHAGIA, UNSPECIFIED Status: Chronic Qualifiers: Dysphagia type: oropharyngeal phase Qualified Code(s): R13.12 - Dysphagia, oropharyngeal phase (8) Gastric AVM Code(s): K31.819 - ANGIODYSPLASIA OF STOMACH AND DUODENUM WITHOUT BLEEDING Status: Chronic (9) Pulmonary hypertension Code(s): I27.20 - PULMONARY HYPERTENSION, UNSPECIFIED Status: Chronic (10) GERD (gastroesophageal reflux disease) Code(s): K21.9 - GASTRO-ESOPHAGEAL REFLUX DISEASE WITHOUT ESOPHAGITIS Status: Chronic Qualifiers: Esophagitis presence: esophagitis presence not specified Qualified Code(s) : K21.9 - Gastro-esophageal reflux disease without esophagitis (11) Hypertension Code(s): I10 - ESSENTIAL (PRIMARY) HYPERTENSION Status: Chronic Qualifiers: Hypertension type: essential hypertension Qualified Code(s): I10 - Essential (primary) hypertension (12) Obesity (BMI 30-39.9) Code(s): E66.9 - OBESITY, UNSPECIFIED Status: Chronic (13) FTT (failure to thrive) in adult Status: Acute (14) Physical deconditioning Code(s): R53.81 - OTHER MALAISE Status: Acute - Plan has multiple comordities likely might have had aspiration in addition to copd and chf exacerbation with anasarca is on cefepime and vanc, inhaler, lasix, coreg, bidil speech will re-evaluate in am again to see if we can put her back on pureed diet with risk given her age and guarded prognosis I cannot reach her family over phone (tried both childrens phone #) prognosis guarded, Palliative consultation, will likely need hospice or palliative care at Skilled unit if family and patient agree covid testing results are pending, once -ve will get PT/OT to evaluate her. Has diastolic dysfunction with ef of 55% on recent echo
[2019-09-21] MEDS ORDERED: Senokot S 8.6-50 MG TAB PO PRN (11:51)
[2019-09-21] MEDS: Cefepime 2 GM in Sodium Chloride 0.9% 100 ML IVPB SCH (12:34)
[2019-09-21] MEDS: Furosemide 20 MG/2 ML VIAL SLOW IVP SCH (12:34)
[2019-09-21] MEDS ORDERED: PROVENTIL INHALER 6.7 G (200 INHALATIONS) INH SCH (15:00)
[2019-09-21] MEDS: Isosorbide Dinitrate 20 MG TAB PO SCH ×2 (16:32→21:16)
[2019-09-21] MEDS: hydrALAZINE 25 MG TAB PO SCH ×2 (16:32→21:17)
[2019-09-21] MEDS: Albuterol 200 PUFF (6.7GM INHALER) INH SCH ×2 (16:32→19:20)
[2019-09-21] MEDS: Carvedilol 6.25 MG TAB PO SCH (16:33)
[2019-09-21] MEDS: Cyanocobalamin (Vitamin B-12) 1,000 MCG TAB PO SCH (21:17)
[2019-09-21] MEDS ORDERED: Vancomycin 1.5 GRAM/300 ML BAG 1.5 GM in Premix Bag 1 BAG IVPB SCH (23:59)
[2019-09-22] MEDS: traMADol HCl 50 MG TAB PO PRN (00:58)
[2019-09-22] MEDS: Cefepime 2 GM in Sodium Chloride 0.9% 100 ML IVPB SCH (02:48)
[2019-09-22] MEDS: Furosemide 20 MG/2 ML VIAL SLOW IVP SCH (05:46)
[2019-09-22] MEDS: Albuterol 200 PUFF (6.7GM INHALER) INH SCH ×4 (07:50→19:23)
[2019-09-22] MEDS: Famotidine/PF 20 mg/2ml Vial SLOW IVP SCH ×2 (08:00→21:22)
[2019-09-22] MEDS: hydrALAZINE 25 MG TAB PO SCH ×3 (08:01→21:21)
[2019-09-22] MEDS: Isosorbide Dinitrate 20 MG TAB PO SCH ×3 (08:01→21:21)
[2019-09-22] MEDS: Aspirin Chewable 81 MG TAB PO SCH (08:01)
[2019-09-22] MEDS: Carvedilol 6.25 MG TAB PO SCH ×2 (08:01→17:08)
[2019-09-22] MEDS: Heparin 5,000 UNITS/ML VIAL SC SCH ×2 (08:01→21:22)
--- NOTE | 2019-09-22 10:06 | PDOC.HOSPP ---
- Subjective Encounter Date: 09/22/19 Encounter Time: 10:00 Subjective: no sob or cough feels better, is more awake than yesterday follows verbal stimuli, is too weak to move her extremities - Objective Vital Signs & Weight: Vital Signs (12 hours) Temp Pulse Resp BP BP Pulse Ox 09/22/19 08:01 72 09/22/19 07:50 97.9 F 72 18 183/73 H 97 09/22/19 03:22 96.9 F L 77 18 134/63 96 09/21/19 23:40 94 20 160/75 H 92 L Weight Admit Weight 204 lb Weight 204 lb I&O: 09/21/19 09/22/19 09/23/19 06:59 06:59 06:59 Intake Total 400 Output Total 1550 Balance -1150 Result Diagrams: 09/21/19 03:15 09/21/19 03:15 Hospitalist ROS - Medication Medications: Active Medications Generic Name Dose Route Start Last Admin Trade Name Freq PRN Reason Stop Dose Admin Acetaminophen 650 mg 09/21/19 02:48 09/22/19 01:00 Tylenol PO 650 mg Q4H PRN Administration Headache/Fever/Mild Pain (1-3) Albuterol Sulfate 2 puff 09/21/19 15:00 09/22/19 07:50 Proventil Hfa INH 2 puff QID-RT TIANA Administration Aspirin 81 mg 09/22/19 09:00 09/22/19 08:01 Aspirin Chewable PO 81 mg DAILY TIANA Administration Carvedilol 6.25 mg 09/21/19 17:00 09/22/19 08:01 Coreg PO 6.25 mg BID-WM TIANA Administration Cyanocobalamin 1,000 mcg 09/21/19 21:00 09/21/19 21:17 Vitamin B-12 PO Not Given HS TIANA Famotidine 20 mg 09/21/19 09:00 09/22/19 08:00 Pepcid SLOW IVP 20 mg Q12HR TIANA Administration Heparin Sodium (Porcine) 5,000 units 09/21/19 09:00 09/22/19 08:01 Heparin SC 5,000 units BID TIANA Administration Hydralazine HCl 25 mg 09/21/19 15:00 09/22/19 08:01 Apresoline PO 25 mg TID TIANA Administration Isosorbide Dinitrate 20 mg 09/21/19 15:00 09/22/19 08:01 Isordil PO 20 mg TID TIANA Administration Sodium Chloride 10 ml 09/21/19 09:00 09/22/19 08:01 Flush - Normal Saline IVF 10 ml Q12HR TIANA Administration Tramadol HCl 50 mg 09/21/19 11:44 09/22/19 00:58 Ultram PO 50 mg BIDPRN PRN Administration Pain>3 - Exam General Appearance: awake alert Eye: PERRL, anicteric sclera ENT: no oropharyngeal lesions, dry oral mucosa Neck: supple, no JVD Heart: RRR, no murmur Respiratory: no wheezes, no rales, rhonchi Gastrointestinal: soft, non-tender, non-distended, normal bowel sounds Extremities: no cyanosis, 2+ LE edema Neurological: cranial nerve grossly intact, no focal deficits Hosp A/P (1) Aspiration pneumonia Code(s): J69.0 - PNEUMONITIS DUE TO INHALATION OF FOOD AND VOMIT Status: Suspected (2) Acute encephalopathy Code(s): G93.40 - ENCEPHALOPATHY, UNSPECIFIED Status: Resolved (3) Acute on chronic diastolic (congestive) heart failure Code(s): I50.33 - ACUTE ON CHRONIC DIASTOLIC (CONGESTIVE) HEART FAILURE Status : Acute (4) Acute respiratory failure with hypoxia Code(s): J96.01 - ACUTE RESPIRATORY FAILURE WITH HYPOXIA Status: Resolved (5) Anemia Code(s): D64.9 - ANEMIA, UNSPECIFIED Status: Chronic (6) COPD (chronic obstructive pulmonary disease) Status: Acute Qualifiers: COPD type: COPD with acute exacerbation Qualified Code(s): J44.1 - Chronic obstructive pulmonary disease with (acute) exacerbation (7) Dysphagia Code(s): R13.10 - DYSPHAGIA, UNSPECIFIED Status: Chronic Qualifiers: Dysphagia type: oropharyngeal phase Qualified Code(s): R13.12 - Dysphagia, oropharyngeal phase (8) Gastric AVM Code(s): K31.819 - ANGIODYSPLASIA OF STOMACH AND DUODENUM WITHOUT BLEEDING Status: Chronic (9) Pulmonary hypertension Code(s): I27.20 - PULMONARY HYPERTENSION, UNSPECIFIED Status: Chronic (10) GERD (gastroesophageal reflux disease) Code(s): K21.9 - GASTRO-ESOPHAGEAL REFLUX DISEASE WITHOUT ESOPHAGITIS Status: Chronic Qualifiers: Esophagitis presence: esophagitis presence not specified Qualified Code(s) : K21.9 - Gastro-esophageal reflux disease without esophagitis (11) Hypertension Code(s): I10 - ESSENTIAL (PRIMARY) HYPERTENSION Status: Chronic Qualifiers: Hypertension type: essential hypertension Qualified Code(s): I10 - Essential (primary) hypertension (12) Obesity (BMI 30-39.9) Code(s): E66.9 - OBESITY, UNSPECIFIED Status: Chronic (13) FTT (failure to thrive) in adult Status: Acute (14) Physical deconditioning Code(s): R53.81 - OTHER MALAISE Status: Acute - Plan has multiple comordities likely might have had aspiration in addition to copd and chf exacerbation with anasarca is on cefepime and vanc, inhaler, lasix, coreg, bidil speech will re-evaluate today again to see if we can put her back on pureed diet with risk given her age and guarded prognosis d/w Ms.Mosley Almanzar over phone and gave her updates, she will d/w her siblings about code status and get back to us. prognosis guarded, Palliative consultation, will likely need hospice or palliative care at Skilled unit if family and patient agree covid 19 is -ve, PT/OT to evaluate her. Has diastolic dysfunction with ef of 55% on recent echo, gentle diuresis. transfer to medical floor
--- NOTE | 2019-09-22 11:20 | PDOC.PALCO ---
Palliative Care Consult - Consult Details Requesting Physician: Dr Mann Reason for Consult: goals of care, advance directives assistance, family support Family Members Present: Phone conversation with Mayra - Pertinent HPI 89 year old female with known heart failure, pulmonary disease who was recently treated at [facility] and discharged to [facility]. Sudden onset at alf of poor O2 saturation, fever, and altered mental status. EMS called and patient transported to [facility] for further evaluation. Admitted for further evaluation and management of suspected sepsis, pneumonia, CHF exacerbation, pulmonary hypertension. - Pertinent PMH CHF, COPD, Pulmonary Hypertension, GERD, Anemia, Dysphagia, Hypertension - Social History Smoking Status: Current some day smoker Smoking: cigarettes Alcohol Use: none Drug Use History: none Living Situation: alf resident - Medications MAR Reviewed: Yes - Allergies Allergies/Adverse Reactions: Allergies Allergy/AdvReac Type Severity Reaction Status Date / Time No Known Allergies Allergy Verified 09/21/19 05:31 - Subjective Awake, mild confusion. Unreliable source of ROS but denies complaints. - ROS Constitutional: weakness ENT: dry mouth, other (denies difficulity swallowing, congestion) Respiratory: other (denies shortness of breath, cough) Cardiology: other (denies chest pain, palpitations) Gastrointestinal: other (denies constipation, nausea, vomiting) Musculoskeletal: arthritis/arthralgias - Objective Vital Signs: Vital Signs - Most Recent Temp Pulse Resp BP Pulse Ox 97.9 F 72 18 183/73 H 97 09/22/19 07:50 09/22/19 08:01 09/22/19 07:50 09/22/19 07:50 09/22/19 07:50 Palliative Performance Scale: 30 - Physical Exam Constitutional: confusion, ill appearing HEENT: EOMI, moist MMs, sclera anicteric Respiratory: unlabored breathing Cardiovascular: RRR Gastrointestinal: soft, non-tender, incontinent Genitourinary: medina catheter Musculoskeletal: no clubbing, pulses present Skin: bruising, fragile Psychiatric: normal mood Deviation from normal: Alert oriented x1 - Problem List (1) Physical deconditioning Code(s): R53.81 - OTHER MALAISE Current Visit: Yes Status: Acute (2) Aspiration pneumonia Code(s): J69.0 - PNEUMONITIS DUE TO INHALATION OF FOOD AND VOMIT Current Visit : Yes Status: Suspected (3) Acute diastolic (congestive) heart failure Code(s): I50.31 - ACUTE DIASTOLIC (CONGESTIVE) HEART FAILURE Current Visit: No Status: Acute (4) Palliative care encounter Code(s): Z51.5 - ENCOUNTER FOR PALLIATIVE CARE Current Visit: No Status: Acute (5) Sepsis Code(s): A41.9 - SEPSIS, UNSPECIFIED ORGANISM Current Visit: No Status: Acute Qualifiers: Sepsis type: Escherichia coli Sepsis acute organ dysfunction status: with acute organ dysfunction Severe sepsis acute organ dysfunction type: encephalopathy Severe sepsis shock status: without septic shock Qualified Code(s): A41.51 - Sepsis due to Escherichia coli [E. coli]; R65.20 - Severe sepsis without septic shock; G93.41 - Metabolic encephalopathy (6) Dysphagia Code(s): R13.10 - DYSPHAGIA, UNSPECIFIED Current Visit: No Status: Chronic Qualifiers: Dysphagia type: oropharyngeal phase Qualified Code(s): R13.12 - Dysphagia, oropharyngeal phase - Plan/Recommendations Plan: Plan for patient to return to [facility] with continued aggressive measures for patient multiple morbidities. Discussed disease processes and natural trajectory toward decline. Addressed family to "Hope for the best and plan for the worst". To discuss when aggressive measures may not be what affords quality of life. Continue with full resuscitative measures and therapies as allowed at alf. [45] minutes spent on this encounter with >50% of the time in counseling and coordination of care. Thank you for this very appropriate consult.
[2019-09-22] MEDS: Furosemide 40 MG/4 ML VIAL SLOW IVP SCH (13:28)
[2019-09-22] MEDS: Cefdinir 300 MG CAP PO SCH (21:21)
[2019-09-22] MEDS: Cyanocobalamin (Vitamin B-12) 1,000 MCG TAB PO SCH (21:21)
[2019-09-23] MEDS: Furosemide 40 MG/4 ML VIAL SLOW IVP SCH ×2 (05:09→12:57)
[2019-09-23] MEDS: Cefdinir 300 MG CAP PO SCH ×2 (07:18→20:09)
[2019-09-23] MEDS: Heparin 5,000 UNITS/ML VIAL SC SCH ×2 (07:18→20:14)
[2019-09-23] MEDS: Aspirin Chewable 81 MG TAB PO SCH (07:18)
[2019-09-23] MEDS: Isosorbide Dinitrate 20 MG TAB PO SCH ×3 (07:18→20:09)
[2019-09-23] MEDS: Famotidine/PF 20 mg/2ml Vial SLOW IVP SCH ×2 (07:18→20:09)
[2019-09-23] MEDS: Carvedilol 6.25 MG TAB PO SCH ×2 (07:18→16:08)
[2019-09-23] MEDS: hydrALAZINE 25 MG TAB PO SCH ×3 (07:18→20:09)
[2019-09-23] MEDS: Albuterol 200 PUFF (6.7GM INHALER) INH SCH ×4 (07:57→19:06)
[2019-09-23 08:50] LABS: Anion Gap 12 mmol/L (10-20); BUN (Urea Nitrogen) 10 mg/dL (9.8-20.1); Calc. Creatinine Clearance 84 mL/min (70-130); Calcium 8.4 mg/dL (7.8-10.44); Carbon Dioxide 23 mmol/L (23-31); Chloride 104 mmol/L (98-107); Estimated GFR-MDRD Greater than 90; Glucose 123 mg/dL (83-110); Potassium 3.3 mmol/L (3.5-5.1); Sodium 136 mmol/L (136-145)
[2019-09-23] MEDS ORDERED: Potassium Chloride 20 MEQ TAB PO SCH (11:00)
--- NOTE | 2019-09-23 11:02 | PDOC.HOSPP ---
- Subjective Encounter Date: 09/23/19 Encounter Time: 10:00 Subjective: no sob, feels better interacts well with verbal stimuli - Objective Vital Signs & Weight: Vital Signs (12 hours) Temp Pulse Resp BP BP BP Pulse Ox 09/23/19 07:58 96 09/23/19 07:18 163/74 H 09/23/19 07:15 98.5 F 87 18 163/74 H 94 L 09/23/19 04:00 86 18 133/102 H 93 L 09/23/19 00:25 97 09/22/19 23:32 98.2 F 83 18 146/66 H 95 Weight Admit Weight 204 lb Weight 204 lb I&O: 09/22/19 09/23/19 09/24/19 06:59 06:59 06:59 Intake Total 400 800 Output Total 1550 950 Balance -1150 -150 Result Diagrams: 09/21/19 03:15 09/23/19 08:01 Hospitalist ROS - Medication Medications: Active Medications Generic Name Dose Route Start Last Admin Trade Name Freq PRN Reason Stop Dose Admin Acetaminophen 650 mg 09/21/19 02:48 09/22/19 01:00 Tylenol PO 650 mg Q4H PRN Administration Headache/Fever/Mild Pain (1-3) Albuterol Sulfate 2 puff 09/21/19 15:00 09/23/19 10:54 Proventil Hfa INH 2 puff QID-RT TIANA Administration Aspirin 81 mg 09/22/19 09:00 09/23/19 07:18 Aspirin Chewable PO 81 mg DAILY TIANA Administration Carvedilol 6.25 mg 09/21/19 17:00 09/23/19 07:18 Coreg PO 6.25 mg BID-WM TIANA Administration Cefdinir 300 mg 09/22/19 21:00 09/23/19 07:18 Omnicef PO 300 mg BID TIANA Administration Cyanocobalamin 1,000 mcg 09/21/19 21:00 09/22/19 21:21 Vitamin B-12 PO 1,000 mcg HS TIANA Administration Famotidine 20 mg 09/21/19 09:00 09/23/19 07:18 Pepcid SLOW IVP 20 mg Q12HR TIANA Administration Furosemide 40 mg 09/22/19 14:00 09/23/19 05:09 Lasix SLOW IVP 40 mg 0600,1400 TIANA Administration Heparin Sodium (Porcine) 5,000 units 09/21/19 09:00 09/23/19 07:18 Heparin SC 5,000 units BID TIANA Administration Hydralazine HCl 25 mg 09/21/19 15:00 09/23/19 07:18 Apresoline PO 25 mg TID TIANA Administration Isosorbide Dinitrate 20 mg 09/21/19 15:00 09/23/19 07:18 Isordil PO 20 mg TID TIANA Administration Sodium Chloride 10 ml 09/21/19 09:00 09/23/19 07:19 Flush - Normal Saline IVF 10 ml Q12HR TIANA Administration Tramadol HCl 50 mg 09/21/19 11:44 09/22/19 00:58 Ultram PO 50 mg BIDPRN PRN Administration Pain>3 - Exam General Appearance: awake alert Eye: PERRL, anicteric sclera ENT: no oropharyngeal lesions, moist mucosa Neck: supple, no JVD Heart: RRR, no murmur Respiratory: no wheezes, no rales Gastrointestinal: soft, non-tender, non-distended, normal bowel sounds Extremities: no cyanosis, 1+ LE edema Neurological: cranial nerve grossly intact, no focal deficits Hosp A/P (1) Aspiration pneumonia Code(s): J69.0 - PNEUMONITIS DUE TO INHALATION OF FOOD AND VOMIT Status: Acute (2) Acute encephalopathy Code(s): G93.40 - ENCEPHALOPATHY, UNSPECIFIED Status: Resolved (3) Acute on chronic diastolic (congestive) heart failure Code(s): I50.33 - ACUTE ON CHRONIC DIASTOLIC (CONGESTIVE) HEART FAILURE Status : Acute (4) Acute respiratory failure with hypoxia Code(s): J96.01 - ACUTE RESPIRATORY FAILURE WITH HYPOXIA Status: Resolved (5) Anemia Code(s): D64.9 - ANEMIA, UNSPECIFIED Status: Chronic (6) COPD (chronic obstructive pulmonary disease) Status: Acute Qualifiers: COPD type: COPD with acute exacerbation Qualified Code(s): J44.1 - Chronic obstructive pulmonary disease with (acute) exacerbation (7) Dysphagia Code(s): R13.10 - DYSPHAGIA, UNSPECIFIED Status: Chronic Qualifiers: Dysphagia type: oropharyngeal phase Qualified Code(s): R13.12 - Dysphagia, oropharyngeal phase (8) Gastric AVM Code(s): K31.819 - ANGIODYSPLASIA OF STOMACH AND DUODENUM WITHOUT BLEEDING Status: Chronic (9) Pulmonary hypertension Code(s): I27.20 - PULMONARY HYPERTENSION, UNSPECIFIED Status: Chronic (10) GERD (gastroesophageal reflux disease) Code(s): K21.9 - GASTRO-ESOPHAGEAL REFLUX DISEASE WITHOUT ESOPHAGITIS Status: Chronic Qualifiers: Esophagitis presence: esophagitis presence not specified Qualified Code(s) : K21.9 - Gastro-esophageal reflux disease without esophagitis (11) Hypertension Code(s): I10 - ESSENTIAL (PRIMARY) HYPERTENSION Status: Chronic Qualifiers: Hypertension type: essential hypertension Qualified Code(s): I10 - Essential (primary) hypertension (12) Obesity (BMI 30-39.9) Code(s): E66.9 - OBESITY, UNSPECIFIED Status: Chronic (13) FTT (failure to thrive) in adult Status: Acute (14) Physical deconditioning Code(s): R53.81 - OTHER MALAISE Status: Acute - Plan has multiple comordities likely might have had aspiration in addition to copd and chf exacerbation with anasarca is on omnicef, inhaler, lasix, coreg, bidil diuresing well with iv lasix is on pureed diet with risk given her age and guarded prognosis d/w 2 daughters over phone. prognosis guarded, Palliative consultation, will likely need hospice or palliative care at Skilled unit if family and patient agree covid 19 is -ve, PT/OT to evaluate her. Has diastolic dysfunction with ef of 55% on recent echo, gentle diuresis. DC plan in am to snf
[2019-09-23] MEDS: traMADol HCl 50 MG TAB PO PRN (16:08)
[2019-09-23] MEDS: Potassium Chloride 20 MEQ TAB PO SCH (16:08)
[2019-09-23] MEDS: Cyanocobalamin (Vitamin B-12) 1,000 MCG TAB PO SCH (20:09)
[2019-09-24 05:08] LABS: Anion Gap 11 mmol/L (10-20); BUN (Urea Nitrogen) 10 mg/dL (9.8-20.1); Calc. Creatinine Clearance 93 mL/min (70-130); Calcium 8.8 mg/dL (7.8-10.44); Carbon Dioxide 26 mmol/L (23-31); Chloride 107 mmol/L (98-107); Estimated GFR-MDRD Greater than 90; Glucose 89 mg/dL (83-110); Potassium 4.7 mmol/L (3.5-5.1); Sodium 139 mmol/L (136-145)
[2019-09-24] MEDS: Furosemide 40 MG/4 ML VIAL SLOW IVP SCH (05:17)
[2019-09-24] MEDS: Albuterol 200 PUFF (6.7GM INHALER) INH SCH ×2 (06:59→13:21)
[2019-09-24] MEDS: Aspirin Chewable 81 MG TAB PO SCH (09:45)
[2019-09-24] MEDS: Heparin 5,000 UNITS/ML VIAL SC SCH (09:45)
[2019-09-24] MEDS: Cefdinir 300 MG CAP PO SCH (09:45)
[2019-09-24] MEDS: Carvedilol 6.25 MG TAB PO SCH (09:45)
[2019-09-24] MEDS: Potassium Chloride 20 MEQ TAB PO SCH (09:45)
[2019-09-24] MEDS: Famotidine/PF 20 mg/2ml Vial SLOW IVP SCH (09:45)
[2019-09-24] MEDS: hydrALAZINE 25 MG TAB PO SCH (09:46)
[2019-09-24] MEDS: Isosorbide Dinitrate 20 MG TAB PO SCH (09:46)
[2019-09-24 11:06] VITALS: BP 128/59; TEMP 98.2
--- NOTE | 2019-09-24 11:24 | PQF ---
CLINICAL DOCUMENTATION IMPROVEMENT CLARIFICATION FORM: ICD-10 Updated PLEASE DO AN ADDENDUM TO THE PROGRESS NOTE WITH ANY DOCUMENTATION UPDATES OR ADDITIONS AND CARRY THROUGH TO DC SUMMARY. THANK YOU. DATE: 09/24/2019 ATTN: Dr. Mann Please exercise your independent, professional judgment in responding to the clarification form. Clinical indicators are provided on the bottom of this form for your review Please check appropriate box(s) to clarify if the following diagnosis has been ruled in or ruled out: Sepsis [ x] Ruled in diagnosis [ ] Continue to treat [ x ] Resolved [ ] Ruled out diagnosis [ ] Improving [ ] Cannot rule out diagnosis [ ] Other diagnosis [ ] Unable to determine In addition, please specify: Present on Admission (POA): [ x] Yes [ ] No [ ] Unable to determine For continuity of documentation, please document condition throughout progress notes and discharge summary. Thank You. CLINICAL INDICATORS - SIGNS / SYMPTOMS / LABS / RESULTS AND LOCATION IN MR H&P 09/20: WBC 12.1 VS: 157/71, pulse 74, resp. 24, temp. 101.6; 99% on 2L nc Assessment: Sepsis Pneumonia, healthcare assoc. pn 09/20-09/22 ([place]) Aspiration pneumonia Acute encephalopathy Acute on chronic diastolic congestive heart failure Acute respiratory failure with hypoxia 09/22 ([place]) likely might have had aspiration in addition to copd and chf exacerbation with anasarca RISKS: H&P 09/20: 89 yo with pmh of CHF, HTN. Anemia. Pulmonary HTN. COPD. TREATMENT: Order 09/20- 09/21: Cefepime 2 gm IV Order 09/20 - 09/21: Vancomycin 1.5gm IV. MAR: Order 09/21: Omnicef 300 mg po BID Thank you, Milagro (This form is maintained as a part of the permanent medical record) 2014 [employer]. All Rights Reserved Milagro Padgett RN, BSN [email or web address] [facility]
--- NOTE | 2019-09-24 11:58 | PDOC.HOSPP ---
- Subjective Encounter Date: 09/24/19 Encounter Time: 09:00 Subjective: no sob or palp talks a few words, not in distress is eating better per staff - Objective Vital Signs & Weight: Vital Signs (12 hours) Temp Pulse Resp BP BP Pulse Ox 09/24/19 10:54 98.2 F 63 16 128/59 L 94 L 09/24/19 07:38 99.5 F 83 16 190/75 H 94 L 09/24/19 03:34 99.0 F 77 20 147/65 H 95 09/24/19 00:54 96 Weight Admit Weight 204 lb Weight 204 lb I&O: 09/23/19 09/24/19 09/25/19 06:59 06:59 06:59 Intake Total 800 200 Output Total 950 2850 Balance -150 -2650 Result Diagrams: 09/21/19 03:15 09/24/19 04:09 Hospitalist ROS - Medication Medications: Active Medications Generic Name Dose Route Start Last Admin Trade Name Freq PRN Reason Stop Dose Admin Acetaminophen 650 mg 09/21/19 02:48 09/22/19 01:00 Tylenol PO 650 mg Q4H PRN Administration Headache/Fever/Mild Pain (1-3) Albuterol Sulfate 2 puff 09/21/19 15:00 09/24/19 06:59 Proventil Hfa INH 2 puff QID-RT TIANA Administration Aspirin 81 mg 09/22/19 09:00 09/24/19 09:45 Aspirin Chewable PO 81 mg DAILY TIANA Administration Carvedilol 6.25 mg 09/21/19 17:00 09/24/19 09:45 Coreg PO 6.25 mg BID-WM TIANA Administration Cefdinir 300 mg 09/22/19 21:00 09/24/19 09:45 Omnicef PO 300 mg BID TIANA Administration Cyanocobalamin 1,000 mcg 09/21/19 21:00 09/23/19 20:09 Vitamin B-12 PO 1,000 mcg HS TIANA Administration Famotidine 20 mg 09/21/19 09:00 09/24/19 09:45 Pepcid SLOW IVP 20 mg Q12HR TIANA Administration Furosemide 40 mg 09/22/19 14:00 09/24/19 05:17 Lasix SLOW IVP 40 mg 0600,1400 TIANA Administration Heparin Sodium (Porcine) 5,000 units 09/21/19 09:00 09/24/19 09:45 Heparin SC 5,000 units BID TIANA Administration Hydralazine HCl 25 mg 09/21/19 15:00 09/24/19 09:46 Apresoline PO 25 mg TID TIANA Administration Isosorbide Dinitrate 20 mg 09/21/19 15:00 09/24/19 09:46 Isordil PO 20 mg TID TIANA Administration Potassium Chloride 40 meq 09/23/19 17:00 09/24/19 09:45 K-Dur PO 09/24/19 17:01 40 meq BID-WM TIANA Administration Sodium Chloride 10 ml 09/21/19 09:00 09/24/19 09:46 Flush - Normal Saline IVF 10 ml Q12HR TIANA Administration Tramadol HCl 50 mg 09/21/19 11:44 09/23/19 16:08 Ultram PO 50 mg BIDPRN PRN Administration Pain>3 - Exam General Appearance: awake alert Eye: PERRL, anicteric sclera ENT: no oropharyngeal lesions, moist mucosa Neck: supple, no JVD Heart: RRR, no murmur Respiratory: no wheezes, no rales Gastrointestinal: soft, non-tender, non-distended, normal bowel sounds Extremities: no cyanosis, 1+ LE edema Neurological: cranial nerve grossly intact, no focal deficits Hosp A/P (1) Aspiration pneumonia Code(s): J69.0 - PNEUMONITIS DUE TO INHALATION OF FOOD AND VOMIT Status: Acute (2) Acute encephalopathy Code(s): G93.40 - ENCEPHALOPATHY, UNSPECIFIED Status: Resolved (3) Acute on chronic diastolic (congestive) heart failure Code(s): I50.33 - ACUTE ON CHRONIC DIASTOLIC (CONGESTIVE) HEART FAILURE Status : Resolved (4) Acute respiratory failure with hypoxia Code(s): J96.01 - ACUTE RESPIRATORY FAILURE WITH HYPOXIA Status: Resolved (5) Anemia Code(s): D64.9 - ANEMIA, UNSPECIFIED Status: Chronic (6) COPD (chronic obstructive pulmonary disease) Status: Resolved Qualifiers: COPD type: COPD with acute exacerbation Qualified Code(s): J44.1 - Chronic obstructive pulmonary disease with (acute) exacerbation (7) Dysphagia Code(s): R13.10 - DYSPHAGIA, UNSPECIFIED Status: Chronic Qualifiers: Dysphagia type: oropharyngeal phase Qualified Code(s): R13.12 - Dysphagia, oropharyngeal phase (8) Gastric AVM Code(s): K31.819 - ANGIODYSPLASIA OF STOMACH AND DUODENUM WITHOUT BLEEDING Status: Chronic (9) Pulmonary hypertension Code(s): I27.20 - PULMONARY HYPERTENSION, UNSPECIFIED Status: Chronic (10) GERD (gastroesophageal reflux disease) Code(s): K21.9 - GASTRO-ESOPHAGEAL REFLUX DISEASE WITHOUT ESOPHAGITIS Status: Chronic Qualifiers: Esophagitis presence: esophagitis presence not specified Qualified Code(s) : K21.9 - Gastro-esophageal reflux disease without esophagitis (11) Hypertension Code(s): I10 - ESSENTIAL (PRIMARY) HYPERTENSION Status: Chronic Qualifiers: Hypertension type: essential hypertension Qualified Code(s): I10 - Essential (primary) hypertension (12) Obesity (BMI 30-39.9) Code(s): E66.9 - OBESITY, UNSPECIFIED Status: Chronic (13) FTT (failure to thrive) in adult Status: Acute (14) Physical deconditioning Code(s): R53.81 - OTHER MALAISE Status: Acute - Plan has multiple comordities likely might have had aspiration in addition to copd and chf exacerbation with anasarca is on omnicef, inhaler, lasix, coreg, bidil diuresed well with lasix with minimal edema in the medial thighs now. is on pureed diet with risk given her age and guarded prognosis covid 19 is -ve, PT/OT to evaluate her. Has diastolic dysfunction with ef of 55% on recent echo, gentle diuresis. DC plan is to snf today tried to call daughter x2, cant reach her.
--- NOTE | 2019-09-26 11:23 | DIS ---
DATE OF ADMISSION: 09/21/2019 DATE OF DISCHARGE: 09/24/2019 DISCHARGE DISPOSITION: To [facility]. PRIMARY DISCHARGE DIAGNOSES: Aspiration pneumonia; COVID-19 negative; acute metabolic encephalopathy, resolved; acute on chronic congestive heart failure exacerbation with diastolic dysfunction; acute respiratory failure with hypoxia secondary to congestive heart failure and volume overload, resolved. SECONDARY DISCHARGE DIAGNOSES: Chronic dysphagia; chronic anemia; chronic obstructive pulmonary disease with current flare-up, resolved; history of gastric AV malformation; pulmonary hypertension; gastroesophageal reflux disease; hypertension; poor functional status; failure to thrive; obesity. PROCEDURES DONE DURING HOSPITALIZATION: CT brain without contrast done showed old/subacute infarct in the right thalamus, has history of chronic right frontal infarct. There is no acute intracranial hemorrhage. CT angio chest done showed no evidence of PE. There is patchy ground-glass airspace disease likely due to congestion with possible infiltrate from aspiration. H and H of 9 and 27, platelet count is 220 with 74% neutrophils, MCV is 83, BUN 10, creatinine 0.6. BNP 97. Troponin 0.02. Albumin is 3.4. UA was negative for any infection. COVID-19 PCR not detected. DISCHARGE MEDICATIONS: 1. Aspirin 81 mg p.o. daily. 2. Lasix 20 mg p.o. at 9 a.m. and 2 p.m. 3. Ultram p.r.n. for pain twice daily. 4. Coreg 6.25 mg twice daily. 5. Omnicef 300 mg p.o. twice daily for 6 days. 6. Vitamin B12 1000 mcg p.o. at bedtime. 7. Hydralazine 25 mg 3 times daily. 8. DuoNeb q.4 hourly p.r.n. 9. Isordil 20 mg three times daily. 10. Protonix 40 mg p.o. daily. 11. MiraLAX 17 g daily. ALLERGIES: NO KNOWN DRUG ALLERGIES. DISCHARGE PLAN: The patient is being discharged to [facility]. BRIEF COURSE DURING HOSPITALIZATION: The patient initially got admitted on the with fever and low oxygen saturations from retirement. She had a temperature of 101.6 on arrival. Had a white count of 12. The patient had lower extremity edema and had pulmonary vascular congestion as well. She was essentially treated for CHF exacerbation, chronic history of dysphagia with likely aspiration pneumonia and sepsis. A COVID-19 swab taken in the ER came back negative. She has had gentle diuresis done along with IV antibiotics which was switched over to Omnicef. She has had speech therapy evaluation done and is currently on pureed diet. She is at risk for aspiration. I have discussed her findings with the patient's POA and daughter, Ms. Manuelito Almanzar and she is aware of chronic risk of aspiration and recurrent pneumonias. She is currently a full code. She has diuresed well with Lasix and has been switched back to oral 20 mg at 9 a.m. and 2 p.m. on discharge. She is hemodynamically stable. A total of 35 minutes was spent on discharge plan. Please see a [id number] documentation on [facility] for the day of discharge. Job ID: [id number]
== END 2019-09-24 13:00 | DRG 871 ==
LOC: ERS 23:38 → 2SW 09-21 02:56
PROVIDERS: ADMIT Internal Medicine; ATTEND Internal Medicine
DX: A41.51 Sepsis due to Escherichia coli [E. coli] (principal); J96.01 Acute respiratory failure with hypoxia; J69.0 Pneumonitis due to inhalation of food and vomit; G93.41 Metabolic encephalopathy; I50.33 Acute on chronic diastolic (congestive) heart failure; J44.0 Chronic obstructive pulmonary disease with (acute) lower respiratory infection; J44.1 Chronic obstructive pulmonary disease with (acute) exacerbation; Z51.5 Encounter for palliative care; R65.20 Severe sepsis without septic shock; I11.0 Hypertensive heart disease with heart failure; R35.0 Frequency of micturition; K21.9 Gastro-esophageal reflux disease without esophagitis; I73.9 Peripheral vascular disease, unspecified; M19.90 Unspecified osteoarthritis, unspecified site; D64.9 Anemia, unspecified; I27.20 Pulmonary hypertension, unspecified; R13.12 Dysphagia, oropharyngeal phase; K31.819 Angiodysplasia of stomach and duodenum without bleeding; F17.210 Nicotine dependence, cigarettes, uncomplicated; E66.9 Obesity, unspecified; Z90.710 Acquired absence of both cervix and uterus; Z79.82 Long term (current) use of aspirin; Z79.899 Other long term (current) drug therapy; Z79.51 Long term (current) use of inhaled steroids; Z68.39 Body mass index [BMI] 39.0-39.9, adult
CPT/HCPCS: 36415; 36416; 51702; 70450; 71045; 71275; 80048; 80053; 81003; 83605; 83880; 84484; 85025; 87040; 87086; 87804; 93005; 96361; 96365; J0692; J1644; J1940; J3370; J3490; Q9967; S0028; U0001

== ENCOUNTER 2019-10-11 01:17 | Inpatient (IN) | payer MEDICARE, OTHER ==
[2019-10-11 02:38] LABS: Bacteria/HPF 3+ HPF (None Seen); Bilirubin Negative (Negative); Blood, Urine 1+ (Negative); Clarity Extra Turbid (Clear); Glucose, Urine (Dipstick) Normal (Negative); Leukocyte 500 Leu/uL (Negative); Nitrite 2+ (Negative); Protein, Urine (Dipstick) 100 mg/dL (Neg-Trace); Squamous Epithelial 0-3 HPF (0-3); Urobilinogen Normal mg/dL (Less than 2); WBC/HPF Greater than 50 HPF (0-3)
[2019-10-11 02:46] LABS: Hemoglobin 10.1 g/dL (12.0-16.0); Mean Corpuscular HGB CONC 30.7 g/dL (32.0-36.0); Mean Corpuscular Hemoglobin 25.7 pg (27.0-31.0); Mean Corpuscular Volume 83.6 fL (78.0-98.0); Mean Platelet Volume 9.7 fL (7.4-10.4); Platelet Count 412 thou/uL (130-400); RBC Distribution Width 22.7 % (11.5-14.5); Red Blood Cell (RBC) Count 3.93 mill/uL (4.20-5.40)
[2019-10-11 02:59] LABS: Band 1 % (5-11); Eosinophils 8 % (0-10); Lymphocytes 35 % (21-51); MDiff Complete? YES; Monocytes 14 % (0-10); Neutrophil 42 % (42-75); Platelet Morphology Comment Appears Increased
[2019-10-11 03:09] LABS: Anion Gap 15 mmol/L (10-20); BUN (Urea Nitrogen) 6 mg/dL (9.8-20.1); Calc. Creatinine Clearance 0 mL/min (70-130); Calcium 9.1 mg/dL (7.8-10.44); Carbon Dioxide 24 mmol/L (23-31); Chloride 105 mmol/L (98-107); Estimated GFR-MDRD Greater than 90; Glucose 96 mg/dL (83-110); Potassium 3.9 mmol/L (3.5-5.1); Sodium 140 mmol/L (136-145)
[2019-10-11] MEDS ORDERED: cefTRIAXone\\ROCEPHIN 1 GM VIAL ONE (03:30)
[2019-10-11] MEDS ORDERED: Acetaminophen 650 MG Suppository PR PRN (03:43)
[2019-10-11] MEDS ORDERED: Acetaminophen 325 MG TAB PO PRN (03:43)
--- NOTE | 2019-10-11 04:19 | PDOC.HHP ---
Hospitalist HPI - History of Present Illness alterd mental state History of Present Illness: history is limited due to pt poor historina and no family members preset at the moment of my evaluation, most of the hisotry taken from emr and ems papers Case of an 89y/o female w pmhx of htn chf copd pulmonary htn and chronic anemia who was brought by ems due to altered mental state. apparently pt was discharge recently from [facility] after been there for almost a month after an admission for aspiration pneumonia. patient was at home and daughter went to wake her up and pt was minimally responsive only opening her eyes and closing the again for which they called ems and pt was brought to this institution. pt was dx with uti and hospitalist was called for futher evaluation and management. Hospitalist ROS - Review of Systems ROS unobtainable: due to mental status Hospitalist History - Past Medical History Cardiac: reports: CHF, HTN, Hyperlipidemia Pulmonary: reports: congestive heart failure, pneumonia - Past Surgical History Other Surgical History: unable to asses - Family History Other Family History: unable to asses - Social History Other Social History: unable to asses - Exam General Appearance: awake alert Eye: PERRL, anicteric sclera ENT: normocephalic atraumatic, no oropharyngeal lesions Neck: supple, symmetric, no JVD Heart: RRR, no murmur, no gallops Respiratory: CTAB, no wheezes, no rales, no ronchi Gastrointestinal: soft, non-tender, non-distended Extremities: no cyanosis, no clubbing, no edema Skin: normal turgor, no rashes Neurological: cranial nerve grossly intact, normal sensation to touch, no weakness, no focal deficits Musculoskeletal: normal tone, normal strength Psychiatric: normal affect, normal behavior, oriented to person, somnolent Hospitalist Results - Labs Result Diagrams: 10/11/19 01:57 10/11/19 01:57 Lab results: WBC 7.0 thou/uL (4.8-10.8) 10/11/19 01:57 Hgb 10.1 g/dL (12.0-16.0) L 10/11/19 01:57 Hct 32.8 % (36.0-47.0) L 10/11/19 01:57 MCV 83.6 fL (78.0-98.0) 10/11/19 01:57 Plt Count 412 thou/uL (130-400) H 10/11/19 01:57 Band Neuts % (Manual) 1 % (5-11) L 10/11/19 01:57 Sodium 140 mmol/L (136-145) 10/11/19 01:57 Potassium 3.9 mmol/L (3.5-5.1) 10/11/19 01:57 Chloride 105 mmol/L (98-107) 10/11/19 01:57 Carbon Dioxide 24 mmol/L (23-31) 10/11/19 01:57 BUN 6 mg/dL (9.8-20.1) L 10/11/19 01:57 Creatinine 0.71 mg/dL (0.6-1.1) 10/11/19 01:57 Glucose 96 mg/dL (83-110) 10/11/19 01:57 Calcium 9.1 mg/dL (7.8-10.44) 10/11/19 01:57 Troponin I 0.022 ng/mL (< 0.028) 10/11/19 01:57 Urine Ketones Negative mg/dL (Negative) 10/11/19 02:17 Urine Blood 1+ (Negative) A 10/11/19 02:17 Urine Nitrite 2+ (Negative) A 10/11/19 02:17 Ur Leukocyte Esterase 500 Lisa/uL (Negative) A 10/11/19 02:17 Urine RBC 7-10 HPF (0-3) A 10/11/19 02:17 Urine WBC Greater than 50 HPF (0-3) A 10/11/19 02:17 Ur Squamous Epith Cells 0-3 HPF (0-3) 10/11/19 02:17 Urine Bacteria 3+ HPF (None Seen) A 10/11/19 02:17 Hospitalist H&P A/P - Problem (1) Altered mental state Code(s): R41.82 - ALTERED MENTAL STATUS, UNSPECIFIED Status: Acute (2) Hypertension Code(s): I10 - ESSENTIAL (PRIMARY) HYPERTENSION Status: Chronic Qualifiers: Hypertension type: essential hypertension Qualified Code(s): I10 - Essential (primary) hypertension (3) COPD (chronic obstructive pulmonary disease) Status: Resolved Qualifiers: COPD type: COPD with acute exacerbation Qualified Code(s): J44.1 - Chronic obstructive pulmonary disease with (acute) exacerbation (4) Anemia Code(s): D64.9 - ANEMIA, UNSPECIFIED Status: Chronic (5) UTI (urinary tract infection) Status: Acute - Plan Plan: alterd mental state - likely secondary to uti, f/u tsh b12 ammonia and cmp uti - on rocephin, f/u cultures continue home meds for chronic conditions
[2019-10-11 04:57] VITALS: BMI 30.1
[2019-10-11 05:02] LABS: Thyroid Stimulating Hormone 1.366 uIU/mL (0.35-4.94)
--- NOTE | 2019-10-11 07:43 | RAD ---
SINGLE VIEW CHEST: Date: 10/11/2019 COMPARISON: 09/21/2019. HISTORY: Altered mental status. FINDINGS: Single view of the chest shows normal sized cardiomediastinal silhouette with atherosclerotic calcifi cations in the aorta. A calcified granuloma projects over the right upper lobe. Atelectasis is seen i n the left lung base. There is no evidence of consolidation, mass, or pleural effusion. IMPRESSION: No evidence of acute cardiopulmonary disease. POS: [facility]
[2019-10-11] MEDS: Enoxaparin Sodium 40 MG/0.4 ML SYRINGE SC SCH (08:32)
[2019-10-11] MEDS ORDERED: Prevnar 13-Val Conj/PF 0.5 ML SYRINGE IM ONE (21:00)
[2019-10-12] MEDS ORDERED: hydrALAZINE 25 MG TAB PO SCH (01:00)
[2019-10-12] MEDS ORDERED: Carvedilol 6.25 MG TAB PO SCH (01:00)
[2019-10-12] MEDS ORDERED: cefTRIAXone\\ROCEPHIN 1 GM in Sodium Chloride 0.9% 100 ML IVPB SCH (04:00)
[2019-10-12 06:00] LABS: Band 1 % (5-11); Eosinophils 1 % (0-10); Hemoglobin 10.9 g/dL (12.0-16.0); Hypochromia SLIGHT = 6-15 cells (100X) (0-5/hpf); Lymphocytes 16 % (21-51); MDiff Complete? YES; Mean Corpuscular HGB CONC 30.2 g/dL (32.0-36.0); Mean Corpuscular Hemoglobin 25.7 pg (27.0-31.0); Mean Corpuscular Volume 85.1 fL (78.0-98.0); Mean Platelet Volume 9.2 fL (7.4-10.4); Monocytes 13 % (0-10); Neutrophil 69 % (42-75); Platelet Count 384 thou/uL (130-400); RBC Distribution Width 22.8 % (11.5-14.5); Red Blood Cell (RBC) Count 4.25 mill/uL (4.20-5.40); White Blood Cell (WBC) Count 6.2 thou/uL (4.8-10.8)
[2019-10-12 06:10] LABS: ALT (SGPT) 7 U/L (8-55); AST (SGOT) 15 U/L (5-34); Albumin 3.1 g/dL (3.4-4.8); Alkaline Phosphatase 85 U/L (40-110); Anion Gap 14 mmol/L (10-20); BUN (Urea Nitrogen) 6 mg/dL (9.8-20.1); Bilirubin, Total 0.3 mg/dL (0.2-1.2); Calc. Creatinine Clearance 78 mL/min (70-130); Calcium 9.1 mg/dL (7.8-10.44); Carbon Dioxide 24 mmol/L (23-31); Chloride 107 mmol/L (98-107); Estimated GFR-MDRD Greater than 90; Globulin 2.9 g/dL (2.4-3.5); Glucose 92 mg/dL (83-110); Potassium 3.8 mmol/L (3.5-5.1); Sodium 141 mmol/L (136-145)
[2019-10-12] MEDS: hydrALAZINE 25 MG TAB PO SCH ×3 (08:33→20:13)
[2019-10-12] MEDS: Enoxaparin Sodium 40 MG/0.4 ML SYRINGE SC SCH (08:34)
[2019-10-12] MEDS: Carvedilol 6.25 MG TAB PO SCH ×2 (08:34→16:39)
--- NOTE | 2019-10-12 15:58 | PDOC.HOSPP ---
- Subjective Encounter Date: 10/12/19 Encounter Time: 15:56 Subjective: DOING WELL, NO COMPLAINS - Objective Vital Signs & Weight: Vital Signs (12 hours) Temp Pulse Resp BP BP Pulse Ox 10/12/19 14:38 65 10/12/19 11:26 97.9 F 65 20 124/55 L 98 10/12/19 08:34 171/65 H 10/12/19 08:33 71 171/65 H 10/12/19 08:00 98 10/12/19 07:18 97.8 F 71 18 171/65 H 98 10/12/19 04:00 98.0 F 79 16 163/71 H 93 L Weight Admit Weight 169 lb Weight 169 lb 15.622 oz I&O: 10/11/19 10/12/19 10/13/19 06:59 06:59 06:59 Intake Total 130 Balance 130 Result Diagrams: 10/12/19 05:31 10/12/19 05:31 Additional Labs: Accuchecks 10/12/19 04:18 POC Glucose 97 Hospitalist ROS - Medication Medications: Active Medications Generic Name Dose Route Start Last Admin Trade Name Freq PRN Reason Stop Dose Admin Acetaminophen 650 mg 10/11/19 03:43 10/11/19 15:39 Tylenol PO 650 mg Q4H PRN Administration Headache/Fever/Mild Pain (1-3) Carvedilol 6.25 mg 10/12/19 08:00 10/12/19 08:34 Coreg PO 6.25 mg BID-WM TIANA Administration Enoxaparin Sodium 40 mg 10/11/19 09:00 10/12/19 08:34 Lovenox SC 40 mg 0900 TIANA Administration Hydralazine HCl 25 mg 10/12/19 09:00 10/12/19 14:38 Apresoline PO 25 mg TID TIANA Administration - Exam General Appearance: awake alert Eye: PERRL, anicteric sclera ENT: normocephalic atraumatic, no oropharyngeal lesions Neck: supple, symmetric, no JVD Heart: RRR, no murmur, no gallops Respiratory: CTAB, no wheezes, no rales Gastrointestinal: soft, non-tender, non-distended Extremities: no cyanosis, no clubbing Skin: normal turgor, no lesions, no rashes Neurological: cranial nerve grossly intact, normal sensation to touch, no focal deficits Musculoskeletal: normal tone, normal strength, no muscle wasting Psychiatric: normal affect, normal behavior, A&O x 3 Hosp A/P (1) Altered mental state Code(s): R41.82 - ALTERED MENTAL STATUS, UNSPECIFIED Status: Acute (2) UTI (urinary tract infection) Status: Acute (3) Acute encephalopathy Code(s): G93.40 - ENCEPHALOPATHY, UNSPECIFIED Status: Resolved - Plan old records reviewed/req, continue antibiotics AMS with acute metabolic encepha=halopathy and UTI. Urine cx positive for ecoli, continue abx AMS has now completely resolved Continue home meds. PT to evaluate and treat
[2019-10-12] MEDS: Cefepime 1 GM in Sodium Chloride 0.9% 100 ML IVPB SCH (20:13)
[2019-10-13] MEDS: Cefepime 1 GM in Sodium Chloride 0.9% 100 ML IVPB SCH ×2 (08:22→20:41)
[2019-10-13] MEDS: hydrALAZINE 25 MG TAB PO SCH ×3 (08:24→20:42)
[2019-10-13] MEDS: Enoxaparin Sodium 40 MG/0.4 ML SYRINGE SC SCH (08:25)
[2019-10-13] MEDS: Carvedilol 6.25 MG TAB PO SCH ×2 (08:25→17:46)
--- NOTE | 2019-10-13 16:25 | PDOC.HOSPP ---
- Subjective Encounter Date: 10/13/19 Encounter Time: 16:23 Subjective: doing well, no complains - Objective Vital Signs & Weight: Vital Signs (12 hours) Temp Pulse Resp BP BP Pulse Ox 10/13/19 15:30 79 165/73 H 10/13/19 08:25 168/81 H 10/13/19 08:24 72 168/81 H 10/13/19 08:00 98.1 F 10/13/19 07:49 98.1 F 85 18 168/89 H 95 Weight Admit Weight 169 lb Weight 169 lb 15.622 oz I&O: 10/12/19 10/13/19 10/14/19 06:59 06:59 06:59 Intake Total 130 960 200 Balance 130 960 200 Result Diagrams: 10/12/19 05:31 10/12/19 05:31 Hospitalist ROS - Medication Medications: Active Medications Generic Name Dose Route Start Last Admin Trade Name Freq PRN Reason Stop Dose Admin Acetaminophen 650 mg 10/11/19 03:43 10/11/19 15:39 Tylenol PO 650 mg Q4H PRN Administration Headache/Fever/Mild Pain (1-3) Carvedilol 6.25 mg 10/12/19 08:00 10/13/19 08:25 Coreg PO 6.25 mg BID-WM TIANA Administration Enoxaparin Sodium 40 mg 10/11/19 09:00 10/13/19 08:25 Lovenox SC 40 mg 0900 TIANA Administration Hydralazine HCl 25 mg 10/12/19 09:00 10/13/19 15:30 Apresoline PO 25 mg TID TIANA Administration Cefepime HCl 1 gm/ Sodium 100 mls @ 200 mls/hr 10/12/19 21:00 10/13/19 08:22 Chloride IVPB 100 mls Q12HR TIANA Administration Sodium Chloride 10 ml 10/12/19 21:00 10/13/19 08:26 Flush - Normal Saline IVF 10 ml Q12HR TIANA Administration - Exam General Appearance: awake alert Eye: PERRL, anicteric sclera ENT: normocephalic atraumatic, no oropharyngeal lesions, moist mucosa Neck: supple, symmetric, no JVD, no thyromegaly Heart: RRR, no murmur, no gallops, no rubs, normal peripheral pulses Respiratory: CTAB, no wheezes, no rales, no ronchi Gastrointestinal: soft, non-tender, non-distended, normal bowel sounds Extremities: no cyanosis, no clubbing, no edema Neurological: cranial nerve grossly intact, normal sensation to touch Musculoskeletal: normal tone, normal strength Psychiatric: normal affect, normal behavior, A&O x 3 Hosp A/P (1) Altered mental state Code(s): R41.82 - ALTERED MENTAL STATUS, UNSPECIFIED Status: Resolved (2) UTI (urinary tract infection) Status: Acute (3) Acute encephalopathy Code(s): G93.40 - ENCEPHALOPATHY, UNSPECIFIED Status: Resolved - Plan AMS with acute metabolic encephalopathy and UTI. Urine cx positive for ecoli, continue abx AMS has now completely resolved Continue home meds. PT to evaluate and treat DC in am
[2019-10-14] MEDS: hydrALAZINE 25 MG TAB PO SCH ×3 (08:01→20:10)
[2019-10-14] MEDS: Carvedilol 6.25 MG TAB PO SCH ×2 (08:03→18:12)
[2019-10-14] MEDS: Cefepime 1 GM in Sodium Chloride 0.9% 100 ML IVPB SCH ×2 (08:04→20:07)
[2019-10-14] MEDS: Enoxaparin Sodium 40 MG/0.4 ML SYRINGE SC SCH (08:04)
[2019-10-14] MEDS ORDERED: Nitroglycerin 0.4 MG TAB (25 Tab Bottle) SL PRN (08:12)
[2019-10-14] MEDS ORDERED: Senokot S 8.6-50 MG TAB PO PRN (08:12)
[2019-10-14] MEDS ORDERED: Polyethylene Glycol 3350 17 GM Packet PO PRN (08:12)
[2019-10-14] MEDS: Pantoprazole 40 MG GRANULES PACKET PO SCH (09:38)
[2019-10-14] MEDS: Isosorbide Dinitrate 20 MG TAB PO SCH ×3 (09:38→20:08)
[2019-10-14] MEDS: Furosemide 20 MG TAB PO SCH ×2 (09:38→20:08)
[2019-10-14] MEDS: Saccharomyces boulardii 250 MG CAP PO SCH (09:38)
--- NOTE | 2019-10-14 19:02 | PDOC.HOSPP ---
- Subjective Encounter Date: 10/14/19 Encounter Time: 11:30 Subjective: pt up in bed no complains. - Objective Vital Signs & Weight: Vital Signs (12 hours) Temp Pulse Resp BP BP Pulse Ox 10/14/19 18:12 124/67 10/14/19 15:50 97.5 F L 79 18 124/67 93 L 10/14/19 15:35 73 104/57 L 10/14/19 11:48 98.6 F 73 16 104/57 L 93 L 10/14/19 08:03 145/70 H 10/14/19 08:01 82 158/67 H 10/14/19 08:00 97.9 F 89 16 145/70 H 96 Weight Admit Weight 169 lb Weight 169 lb 15.622 oz I&O: 10/13/19 10/14/19 10/15/19 06:59 06:59 06:59 Intake Total 960 1240 1420 Balance 960 1240 1420 Result Diagrams: 10/12/19 05:31 10/12/19 05:31 Hospitalist ROS - Review of Systems Cardiovascular: denies: chest pain, palpitations, orthopnea, paroxysmal noc. dyspnea, edema, light headedness, other Gastrointestinal: denies: nausea, vomiting, abdominal pain, diarrhea, constipation, melena, hematochezia, other Genitourinary: denies: dysuria, frequency, incontinence, hematuria, retention, other - Medication Medications: Active Medications Generic Name Dose Route Start Last Admin Trade Name Freq PRN Reason Stop Dose Admin Acetaminophen 650 mg 10/11/19 03:43 10/11/19 15:39 Tylenol PO 650 mg Q4H PRN Administration Headache/Fever/Mild Pain (1-3) Carvedilol 6.25 mg 10/12/19 08:00 10/14/19 18:12 Coreg PO 6.25 mg BID-WM TIANA Administration Enoxaparin Sodium 40 mg 10/11/19 09:00 10/14/19 08:04 Lovenox SC 40 mg 0900 TIANA Administration Furosemide 20 mg 10/14/19 09:00 10/14/19 09:38 Lasix PO 20 mg BID TIANA Administration Hydralazine HCl 25 mg 10/12/19 09:00 10/14/19 15:35 Apresoline PO Not Given TID TIANA Cefepime HCl 1 gm/ Sodium 100 mls @ 200 mls/hr 10/12/19 21:00 10/14/19 08:04 Chloride IVPB 100 mls Q12HR TIANA Administration Isosorbide Dinitrate 20 mg 10/14/19 09:00 10/14/19 15:38 Isordil PO 20 mg TID TIANA Administration Pantoprazole Sodium 40 mg 10/14/19 09:00 10/14/19 09:38 Protonix PO 40 mg DAILY TIANA Administration Saccharomyces Boulardii 250 mg 10/14/19 09:00 10/14/19 09:38 Florastor PO 250 mg DAILY TIANA Administration Sodium Chloride 10 ml 10/12/19 21:00 10/14/19 08:05 Flush - Normal Saline IVF 10 ml Q12HR TIANA Administration - Exam Neck: negative: supple, symmetric, no JVD, no thyromegaly, no lymphadenopathy, no carotid bruit, JVD Heart: negative: RRR, no murmur, no gallops, no rubs, normal peripheral pulses, irregular, diminshed peripheral pulses, murmur present, II/IV, III/IV Respiratory: negative: CTAB, no wheezes, no rales, no ronchi, normal chest expansion, no tachypnea, normal percussion, rales, rhonchi, tachypneic, wheezes Gastrointestinal: negative: soft, non-tender, non-distended, normal bowel sounds , no palpable masses, no hepatomegaly, no splenomegaly, no bruit, no guarding, no rigidity, tender to palpation, distended, diminished bowl sounds, voluntary guarding Skin - other findings: left heel has small blister Hosp A/P (1) Physical deconditioning Code(s): R53.81 - OTHER MALAISE Status: Acute (2) UTI (urinary tract infection) Status: Acute (3) Dysphagia Code(s): R13.10 - DYSPHAGIA, UNSPECIFIED Status: Chronic Qualifiers: Dysphagia type: oropharyngeal phase Qualified Code(s): R13.12 - Dysphagia, oropharyngeal phase (4) Hypertension Code(s): I10 - ESSENTIAL (PRIMARY) HYPERTENSION Status: Chronic Qualifiers: Hypertension type: essential hypertension Qualified Code(s): I10 - Essential (primary) hypertension (5) Acute metabolic encephalopathy Code(s): G93.41 - METABOLIC ENCEPHALOPATHY Status: Acute - Plan will continue current abx. spoke with daughter maribell and updated her. speech to evaluate pt. will put her on pureed diet. Her bladder scan post void had low residual of 70ml and 90ml. per family pt is not ambulation as much recommended evaluation with PT for home with PT vs rehab.
[2019-10-14] MEDS ORDERED: Cyanocobalamin (Vitamin B-12) 1,000 MCG TAB PO SCH (21:00)
[2019-10-15] MEDS: Cefepime 1 GM in Sodium Chloride 0.9% 100 ML IVPB SCH (08:18)
[2019-10-15] MEDS: Enoxaparin Sodium 40 MG/0.4 ML SYRINGE SC SCH (08:19)
[2019-10-15] MEDS: Isosorbide Dinitrate 20 MG TAB PO SCH ×2 (08:19→14:55)
[2019-10-15] MEDS: Pantoprazole 40 MG GRANULES PACKET PO SCH (08:19)
[2019-10-15] MEDS: Carvedilol 6.25 MG TAB PO SCH (08:19)
[2019-10-15] MEDS: Furosemide 20 MG TAB PO SCH (08:19)
[2019-10-15] MEDS: Saccharomyces boulardii 250 MG CAP PO SCH (08:19)
[2019-10-15] MEDS: hydrALAZINE 25 MG TAB PO SCH ×2 (08:19→14:55)
[2019-10-15 14:55] VITALS: BP 123/67
[2019-10-15 14:58] VITALS: TEMP 97.9
--- NOTE | 2019-10-16 02:27 | DIS ---
DATE OF ADMISSION: 10/11/2019 DATE OF DISCHARGE: 10/15/2019 DISCHARGE DIAGNOSES: As of the followin. Acute metabolic encephalopathy, very transient. 2. Urinary tract infection, nonsymptomatic. 3. Deconditioning. 4. Hypertension. 5. Dysphagia. HOSPITAL COURSE: The patient is an 89-year-old female who initially presented to the hospital for altered mental status. I actually called the patient's daughter, Jenelle, and got a more information. She stated that she woke the patient up at 12:30 in the morning to give her hydralazine. At this time, the patient was very drowsy, was not arousable, and at this time, she was brought into the hospital. Upon evaluating the ER notes, ER notes stated that she was pretty awake in the ER and alert, and this was also per the EMS report. She denied any symptoms. At this time, a urine was checked and urine appeared to have some leukocyte esterase and wbc's and at this time, she was admitted to the hospital for possible UTI. Her urinary cultures indicated Morganella morgagnii and Citrobacter. At this time, she had no leukocytosis, just one bandemia, but no leukocytosis, and no elevated neutrophils either. I did curbside Infectious Disease, initially she was put on cefepime, to continue the cefepime versus to kind of just do oral antibiotics. She was resistant to a lot of oral medications, so cefepime would be the drug of choice. However, when I discuss this with Infectious Disease polymer materials consultant, the recommendation was to actually not prescribe her anything. I did have a conversation with the patient's daughter, stating that she needs not to wake her up early in the morning to administering medications. Her medications have been adjusted. I have changed the timings of her medications from three times a day to twice a day. She does have an appointment with her primary care doctor on Friday. She was on oxygen at home. She has a history of COPD. The oxygen was possibly for her aspiration pneumonia. She has been about from 93% to 97% on room air. I will discontinue the oxygen. Also, she was continued to be on a pureed diet with thin liquids. Speech did re-evaluate her. She was also evaluated by Physical Therapy. She will need assistance at home. The family is aware of this. HOME MEDICATIONS: Will be as of the following; 1. Lasix 40 mg daily instead of 20 mg twice a day. 2. Isosorbide 20 mg b.i.d. 3. Potassium 20 mEq daily. 4. Hydralazine 25 mg b.i.d. 5. Protonix 40 mg daily. 6. MiraLAX 17 g daily p.r.n. 7. Coreg 6.25 b.i.d. 8. Vitamin B12, 1000 daily. 9. Milk of magnesia 30 mL q.12 hours p.r.n. 10. DuoNeb as needed. 11. I did decrease her hydralazine from 25 t.i.d. to 25 b.i.d. PHYSICAL EXAMINATION: VITAL SIGNS: Her vital signs have been; temperature 97.5, pulse 79, blood pressure 124/67, respirations 18, and O2 saturation is 93% on room air. GENERAL: She is awake, alert, and oriented x3. Does not appear in distress. CV: S1, S2 present. No murmurs, rubs, or gallops. ABDOMEN: Soft and nontender. Bowel sounds are present x2. EXTREMITIES: She does have a small blister on her left heel. I have advised the patient's family to keep her foot off the bed to prevent any bedsores in the future. I tried to minimize her blood pressure medications. Her blood pressures have been varying from 104/57 to 143. Given her age, I think less medications and less frequency are good options for her. Job ID: [id number]
== END 2019-10-15 16:29 | disposition home health service (06) | DRG 689 ==
LOC: ERS 01:17 → T4-A 03:47 → OBSVTOIN 03:47
PROVIDERS: ADMIT Internal Medicine; ATTEND Internal Medicine
DX: N39.0 Urinary tract infection, site not specified (principal); G93.41 Metabolic encephalopathy; J69.0 Pneumonitis due to inhalation of food and vomit; Z16.30 Resistance to unspecified antimicrobial drugs; J44.9 Chronic obstructive pulmonary disease, unspecified; I10 Essential (primary) hypertension; I27.20 Pulmonary hypertension, unspecified; E78.5 Hyperlipidemia, unspecified; D64.9 Anemia, unspecified; K21.9 Gastro-esophageal reflux disease without esophagitis; M19.90 Unspecified osteoarthritis, unspecified site; B96.20 Unspecified Escherichia coli [E. coli] as the cause of diseases classified elsewhere; R13.12 Dysphagia, oropharyngeal phase; R53.81 Other malaise; Z90.710 Acquired absence of both cervix and uterus
CPT/HCPCS: 36415; 36416; 51701; 71045; 80048; 80053; 81003; 81015; 82140; 82607; 84443; 84484; 85007; 85025; 85027; 87040; 87077; 87086; 87186; 93005; 96374; A4353; J0692; J0696; J1650; J3490

== ENCOUNTER 2019-11-09 15:28 | Outpatient (CLI) | payer MEDICARE, OTHER ==
--- NOTE | 2019-11-09 18:01 | MRI ---
MRI BRAIN WITHOUT CONTRAST: 11/09/19 INDICATIONS: Left leg weakness. Comparison made to head CT of 09/21/19. FINDINGS: Moderate cortical atrophy. Severe chronic ischemic white matter change. No evidence of restricted dif fusion. No evidence of acute infarct. Chronic ischemic changes noted in the brain stem. 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 Ex vacuo dilatation of the right lateral ventricl e due to this volume loss. Gliosis seen in the cortex of the right occipitoparietal lobe. Mild gliosis in the left parietal lobe cortex. The intracranial internal carotid arteries and proximal cerebral arteries and basilar artery show jax w voids. Review of the paranasal sinuses show mucous retention cysts in the right sphenoid air cell measuring approximately 1.0 cm. There is mucosal edema noted in the right mastoid air cells. IMPRESSION: Cortical atrophy. Moderately severe chronic ischemic white matter change with ischemic brain stem amy nges. 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 There is no evidence of acute infarct or mass. POS: AGW
== END 2019-11-09 15:29 | disposition home or self-care (01) ==
LOC: BICMRI 15:28
PROVIDERS: ATTEND Family Medicine
DX: R29.898 Other symptoms and signs involving the musculoskeletal system (principal); G31.9 Degenerative disease of nervous system, unspecified; I67.82 Cerebral ischemia; Z86.73 Personal history of transient ischemic attack (TIA), and cerebral infarction without residual deficits
CPT/HCPCS: 70551